=== PATIENT | male | born 1950 | race Caucasian/White ===

== ENCOUNTER 2017-10-05 14:52 | Inpatient (IN) | payer BC ==
[~2017-10-05] VITALS: Ht 180.3 cm; Wt 91.8 kg
[2017-10-05] MEDS ORDERED: ONDANSETRON PF 4 MG/2 ML VIAL. IV PRN (15:30)
[2017-10-05 15:40] VITALS: BP 110/73
[2017-10-05 16:07] LABS: BASO % 0 % (0-3); EOS # 0.2 x10^3/uL (0.0-0.7); EOS % 2 % (0-3); HEMATOCRIT 38.6 % (39.0-53.0); HEMOGLOBIN 13.5 g/dL (13.0-17.5); LYMPH # 2.4 x10^3/uL (1.0-4.8); LYMPH % 16 % (24-48); MEAN CORPUSCULAR HEMOGLOBIN 32 pg (25-35); MEAN CORPUSCULAR HGB CONC 35 g/dL (31-37); MEAN CORPUSCULAR VOLUME 92 fL (79-100); MONO # 1.3 x10^3/uL (0.0-1.1); MONO % 8 % (0-9); NEUT # 11.1 x10^3uL (1.8-7.7); NEUT % 74 % (31-73); PLATELET COUNT 328 x10^3/uL (140-400); RED BLOOD COUNT 4.22 x10^6/uL (4.30-5.70); RED CELL DISTRIBUTION WIDTH 13.4 % (11.5-14.5)
[2017-10-05 16:15] LABS: ALBUMIN 3.5 g/dL (3.4-5.0); ALBUMIN/GLOBULIN RATIO 0.9 (1.0-1.7); CALCIUM 9.5 mg/dL (8.5-10.1); CREATININE 1.1 mg/dL (0.7-1.3); GFR 67.2; TOTAL BILIRUBIN 0.6 mg/dL (0.2-1.0); TOTAL PROTEIN 7.4 g/dL (6.4-8.2)
[2017-10-05] MEDS ORDERED: INSU100I13 SQ (16:29)
[2017-10-05] MEDS ORDERED: LISI-338 PO (16:29)
[2017-10-05] MEDS ORDERED: ASPI81TA50 PO (16:29)
[2017-10-05] MEDS ORDERED: CARV6.252 PO (16:29)
[2017-10-05] MEDS ORDERED: ATORVASTATIN CA80 MG PO (16:29)
[2017-10-05] MEDS ORDERED: METF500T4 PO (16:29)
[2017-10-05] MEDS ORDERED: TICA90TA PO (16:29)
[2017-10-05] MEDS: IV NORMAL SALINE 1,000ML 1,000 ML IV SCH (18:21)
[2017-10-05 19:46] VITALS: BP 90/64
[2017-10-05 20:29] LABS: COLOR,URINE YELLOW
[2017-10-05 20:30] LABS: BACTERIA,URINE 0 /HPF (0-FEW); BILIRUBIN,URINE NEG (NEG); CLARITY,URINE CLEAR; GLUCOSE,URINE NEG (NEG); NITRITE,URINE NEG (NEG); RBC,URINE 0 /HPF (0-2); SQUAMOUS EPITHELIAL CELL,UR FEW /LPF; UROBILINOGEN,URINE 1 mg/dL (0.2 mg/dL)
[2017-10-05] MEDS: CARVEDILOL 6.25 MG TABLET PO SCH (21:00)
[2017-10-05] MEDS: ATORVASTATIN CALCIUM 20 MG TABLET PO SCH (21:20)
[2017-10-05] MEDS: TICAGRELOR 90 MG TABLET. PO SCH (21:20)
[2017-10-05] MEDS: CIPROFLOXACIN 400MG PREMIX 200 ML IV SCH (21:21)
[2017-10-05] MEDS: INSULIN GLARGINE 300 UNITS/3 ML INSULN.PEN. SQ SCH (21:23)
[2017-10-06 00:08] VITALS: BP 92/67
[2017-10-06] MEDS: IV NORMAL SALINE 1,000ML 1,000 ML IV SCH ×4 (01:56→23:30)
[2017-10-06 05:57] VITALS: BP 99/64
[2017-10-06 06:43] LABS: BASO % 0 % (0-3); EOS # 0.3 x10^3/uL (0.0-0.7); EOS % 3 % (0-3); HEMATOCRIT 35.3 % (39.0-53.0); HEMOGLOBIN 12.5 g/dL (13.0-17.5); LYMPH # 2.4 x10^3/uL (1.0-4.8); LYMPH % 19 % (24-48); MEAN CORPUSCULAR HEMOGLOBIN 33 pg (25-35); MEAN CORPUSCULAR HGB CONC 36 g/dL (31-37); MEAN CORPUSCULAR VOLUME 92 fL (79-100); MONO % 8 % (0-9); NEUT # 8.5 x10^3uL (1.8-7.7); NEUT % 70 % (31-73); PLATELET COUNT 283 x10^3/uL (140-400); RED BLOOD COUNT 3.85 x10^6/uL (4.30-5.70); RED CELL DISTRIBUTION WIDTH 13.4 % (11.5-14.5); WHITE BLOOD COUNT 12.3 x10^3/uL (4.0-11.0)
[2017-10-06 06:53] LABS: CALCIUM 9.2 mg/dL (8.5-10.1); POTASSIUM 3.6 mmol/L (3.5-5.1)
[2017-10-06] MEDS: CARVEDILOL 6.25 MG TABLET PO SCH ×2 (08:00→14:44)
[2017-10-06] MEDS: TICAGRELOR 90 MG TABLET. PO SCH ×2 (08:39→21:17)
[2017-10-06] MEDS: CIPROFLOXACIN 400MG PREMIX 200 ML IV SCH ×2 (08:39→21:16)
[2017-10-06] MEDS: metFORMIN 500 MG TABLET PO SCH ×2 (08:39→17:13)
[2017-10-06] MEDS: ASPIRIN ENTERIC COATED 81 MG TABLET.DR. PO SCH (08:39)
[2017-10-06] MEDS: LISINOPRIL 5 MG TABLET. PO SCH ×2 (08:42→14:44)
[2017-10-06 11:01] VITALS: BP 121/74
[2017-10-06 14:40] VITALS: BP 152/71
--- NOTE | 2017-10-06 18:42 | PN ---
DATE: 10/06/2017 SUBJECTIVE: A 67-year-old male in with diverticulitis, doing somewhat better today. The patient seems to be resting fairly comfortably. OBJECTIVE: VITAL SIGNS: The patient's blood pressure 120/70, respiratory rate 14, pulse 80, afebrile. ABDOMEN: Soft, diffuse tenderness in the left lower quadrant, but markedly improved from yesterday. No rebounding, no guarding. Positive bowel sounds. IMPRESSION: Diverticulitis. Continue with IV antibiotic therapy for now and make further evaluation. RAFAEL PARRA MD DR: SKIP/vidya JOB#: [id number] / [id number]
[2017-10-06 18:53] VITALS: BP 113/72
[2017-10-06] MEDS: ATORVASTATIN CALCIUM 20 MG TABLET PO SCH (21:17)
[2017-10-06] MEDS: LACTOBACILLUS RHAMNOSUS GG 1 CAPSULE. PO SCH (21:17)
[2017-10-06] MEDS: INSULIN GLARGINE 300 UNITS/3 ML INSULN.PEN. SQ SCH (21:21)
[2017-10-06 23:55] VITALS: BP 110/75
[2017-10-07 05:50] VITALS: BP 119/81
[2017-10-07] MEDS ORDERED: GLYCERIN/WITCH HAZEL TOPICAL PADS 40'S JAR. TP PRN (06:30)
[2017-10-07 06:36] LABS: BASO % 0 % (0-3); EOS # 0.3 x10^3/uL (0.0-0.7); EOS % 3 % (0-3); HEMATOCRIT 34.7 % (39.0-53.0); HEMOGLOBIN 12.4 g/dL (13.0-17.5); LYMPH % 22 % (24-48); MEAN CORPUSCULAR HEMOGLOBIN 33 pg (25-35); MEAN CORPUSCULAR HGB CONC 36 g/dL (31-37); MEAN CORPUSCULAR VOLUME 92 fL (79-100); MONO # 0.8 x10^3/uL (0.0-1.1); MONO % 8 % (0-9); NEUT # 6.1 x10^3uL (1.8-7.7); NEUT % 66 % (31-73); PLATELET COUNT 292 x10^3/uL (140-400); RED BLOOD COUNT 3.78 x10^6/uL (4.30-5.70); RED CELL DISTRIBUTION WIDTH 13.2 % (11.5-14.5); WHITE BLOOD COUNT 9.3 x10^3/uL (4.0-11.0)
[2017-10-07 06:38] LABS: CALCIUM 9.2 mg/dL (8.5-10.1); POTASSIUM 3.8 mmol/L (3.5-5.1)
[2017-10-07] MEDS: CARVEDILOL 6.25 MG TABLET PO SCH (08:37)
[2017-10-07] MEDS: TICAGRELOR 90 MG TABLET. PO SCH (08:37)
[2017-10-07] MEDS: metFORMIN 500 MG TABLET PO SCH (08:37)
[2017-10-07] MEDS: ASPIRIN ENTERIC COATED 81 MG TABLET.DR. PO SCH (08:37)
[2017-10-07 08:38] VITALS: BP 119/81
[2017-10-07] MEDS: LISINOPRIL 5 MG TABLET. PO SCH (08:38)
[2017-10-07] MEDS: LACTOBACILLUS RHAMNOSUS GG 1 CAPSULE. PO SCH (08:38)
[2017-10-07] MEDS ORDERED: METR500T8 PO ×2 (08:45→09:14)
--- NOTE | 2017-10-07 14:30 | DS ---
DATE OF DISCHARGE: 10/07/2017 HOSPITAL COURSE: A 67-year-old gentleman with diverticulitis, came in with left lower quadrant pain, also found out to have C. difficile and as a result of this, the patient was positive and kept on metronidazole, which took care of his diverticulitis as well as his other elements. He is still to get a colonoscopy in 6-10 weeks. Otherwise, the patient made good progress during the rest of his hospitalization also has a history of cholelithiasis. IMPRESSION AND PLAN: Therefore, diverticulitis of the left descending sigmoid area, as well as C. difficile. He will be discharged home. See MRAD. Decreased activity. Continue on metronidazole. Follow up with Gastroenterology. RAFAEL PARRA MD DR: SKIP/vidya JOB#: [id number] / [id number]
== END 2017-10-07 09:55 | disposition home or self-care (01) | DRG 372 ==
LOC: 1 SOUTH 15:10
PROVIDERS: ADMIT Family Medicine; ATTEND Family Medicine
DX: A04.72 Enterocolitis due to Clostridium difficile, not specified as recurrent (principal); K57.32 Diverticulitis of large intestine without perforation or abscess without bleeding; I10 Essential (primary) hypertension; E11.9 Type 2 diabetes mellitus without complications; F17.210 Nicotine dependence, cigarettes, uncomplicated; Z95.5 Presence of coronary angioplasty implant and graft; Z83.3 Family history of diabetes mellitus; Z79.82 Long term (current) use of aspirin; Z79.4 Long term (current) use of insulin; Z79.899 Other long term (current) drug therapy
CPT/HCPCS: 36415; 74177; 80048; 80053; 81001; 82150; 82947; 83690; 85007; 85025; 87324; J0744; J1815; J3490; Q9966; Q9967; J7030

== ENCOUNTER 2017-10-18 13:01 | Inpatient (IN) | payer BC ==
[~2017-10-18] VITALS: Ht 180.3 cm; Wt 92.6 kg
[~2017-10-18 13:01] MED LIST: ASPI81TA50 PO; ATORVASTATIN CA80 MG PO; CARV6.252 PO; INSU100I13 SQ; LISI-338 PO; METF500T5 PO; METR500T8 PO; TICA90TA PO
[2017-10-18 13:28] VITALS: BP 97/64
[2017-10-18 14:10] LABS: BASO % 0 % (0-3); EOS # 0.2 x10^3/uL (0.0-0.7); EOS % 1 % (0-3); HEMATOCRIT 37.8 % (39.0-53.0); HEMOGLOBIN 13.2 g/dL (13.0-17.5); LYMPH # 2.2 x10^3/uL (1.0-4.8); LYMPH % 12 % (24-48); MEAN CORPUSCULAR HEMOGLOBIN 33 pg (25-35); MEAN CORPUSCULAR HGB CONC 35 g/dL (31-37); MEAN CORPUSCULAR VOLUME 93 fL (79-100); MONO # 1.8 x10^3/uL (0.0-1.1); MONO % 10 % (0-9); NEUT # 14.4 x10^3uL (1.8-7.7); NEUT % 77 % (31-73); PLATELET COUNT 352 x10^3/uL (140-400); RED BLOOD COUNT 4.06 x10^6/uL (4.30-5.70); RED CELL DISTRIBUTION WIDTH 13.9 % (11.5-14.5); WHITE BLOOD COUNT 18.6 x10^3/uL (4.0-11.0)
[2017-10-18] MEDS ORDERED: NITROGLYCERIN SUBLINGUAL 0.4 MG BOTTLE OF 25. SL PRN (14:15)
[2017-10-18 14:22] LABS: ALBUMIN 3.6 g/dL (3.4-5.0); ALBUMIN/GLOBULIN RATIO 0.9 (1.0-1.7); CALCIUM 9.1 mg/dL (8.5-10.1); CREATININE 1.3 mg/dL (0.7-1.3); GFR 55.4; POTASSIUM 4.4 mmol/L (3.5-5.1); TOTAL BILIRUBIN 0.9 mg/dL (0.2-1.0); TOTAL PROTEIN 7.5 g/dL (6.4-8.2)
[2017-10-18] MEDS ORDERED: ASPIRIN 81 MG TAB.CHEW PO ONE (14:30)
[2017-10-18] MEDS ORDERED: IOHEXOL 240 MG/ML 50ML VIAL. ONE (14:51)
[2017-10-18] MEDS: metroNIDAZOLE 500 MG TABLET PO SCH ×2 (15:04→21:15)
[2017-10-18] MEDS: IV NORMAL SALINE 1,000ML 1,000 ML IV SCH ×2 (15:07→22:58)
[2017-10-18] MEDS ORDERED: IOHEXOL 300 MG/ML 75 ML VIAL. IV ONE (15:30)
[2017-10-18 16:22] VITALS: BP 111/66
[2017-10-18 17:06] LABS: % BANDS 1 % (0-9); % LYMPHS 12 % (24-48); % MONOS 5 % (0-10); % MYELOS 1 % (0-0); % SEGS 77 % (35-66)
[2017-10-18 17:52] LABS: PLT ESTIMATE ADEQUATE (ADEQUATE)
[2017-10-18 17:57] LABS: % ATYL 4 % (0-0)
[2017-10-18] MEDS: CARVEDILOL 6.25 MG TABLET PO SCH (18:03)
[2017-10-18 19:21] VITALS: BP 106/61
[2017-10-18] MEDS: ATORVASTATIN CALCIUM 20 MG TABLET PO SCH (21:06)
[2017-10-18] MEDS: TICAGRELOR 90 MG TABLET. PO SCH (21:06)
[2017-10-18] MEDS: INSULIN GLARGINE 300 UNITS/3 ML INSULN.PEN. SQ SCH (21:13)
[2017-10-18 22:27] VITALS: BP 105/68
[2017-10-19 06:09] VITALS: BP 118/63
[2017-10-19] MEDS: IV NORMAL SALINE 1,000ML 1,000 ML IV SCH ×3 (08:34→22:00)
[2017-10-19] MEDS: ASPIRIN ENTERIC COATED 81 MG TABLET.DR. PO SCH (08:35)
[2017-10-19] MEDS: CARVEDILOL 6.25 MG TABLET PO SCH ×2 (08:35→17:10)
[2017-10-19] MEDS: TICAGRELOR 90 MG TABLET. PO SCH ×2 (08:35→20:32)
[2017-10-19] MEDS: metroNIDAZOLE 500 MG TABLET PO SCH ×3 (08:36→20:32)
[2017-10-19] MEDS: LISINOPRIL 5 MG TABLET. PO SCH (08:36)
[2017-10-19 08:38] LABS: BACTERIA,URINE 0 /HPF (0-FEW); BILIRUBIN,URINE NEG (NEG); CLARITY,URINE CLEAR; COLOR,URINE YELLOW; GLUCOSE,URINE NEG (NEG); NITRITE,URINE NEG (NEG); RBC,URINE 0 /HPF (0-2); SQUAMOUS EPITHELIAL CELL,UR OCC /LPF; UROBILINOGEN,URINE 0.2 mg/dL (0.2 mg/dL); WBC,URINE 0 /HPF (0-4)
--- NOTE | 2017-10-19 08:45 | RAD ---
CT abdomen and pelvis with contrast 10/18/2017 Clinical indication: Diverticulitis. Abdominal pain. COMPARISON: CT abdomen pelvis 10/05/2017 TECHNIQUE: Multiple CT images of the abdomen and pelvis were obtained following intravenous administration of 75 mL Omnipaque 300. *One or more of the following individualized dose reduction techniques were utilized for this examination: 1. Automated exposure control. 2. Adjustment of the mA and/or kV according to patient size. 3. Use of iterative reconstruction technique. There are clustered subcentimeter noncalcified nodules in the left lung base series 2/image 1. Heart size is normal with partial visualization of coronary artery calcifications. Liver, spleen, adrenal glands are unremarkable. Cholelithiasis. No bile duct dilatation. There are punctate pancreatic parenchymal calcifications most prominent proximally, likely sequelae of chronic pancreatitis. No main branch pancreatic ductal dilatation There is an exophytic simple cyst from the posterior superior pole of the right kidney measuring up to 5.8 cm. There is a dominant simple cyst in the inferior pole the left kidney measuring 2.1 cm. There are additional bilateral renal hypodensities which are too small to definitively characterize. There is a stable exophytic hyperdensity with peripheral calcification at the inferior pole of the right kidney measuring 0.9 cm series 2/image 76. Abdominal aorta is normal in caliber with moderate mixed aortoiliac atheromatous disease. Major portal, splenic and visualized superior mesenteric veins are patent. No retroperitoneal or mesenteric lymphadenopathy. Small and large bowel loops are normal in caliber without obstruction. Appendix is normal in appearance. Moderate descending and sigmoid diverticulosis. Resolution in stranding adjacent to a diverticula at the proximal sigmoid colon, however interval development of pericolonic stranding and edema adjacent to a distal sigmoid colonic diverticula series 2/image 124. No pericolonic drainable abscess. No iliac or inguinal lymphadenopathy. No pelvic free fluid. There is a tiny left lateral urinary bladder diverticula. There are no destructive osseous lesions. IMPRESSION: 1. Resolution of proximal sigmoid diverticulitis, however development of acute distal sigmoid diverticulitis. No pericolonic drainable abscess. 2. Bilateral renal cysts, additional renal hypodensities that are too small to characterize, and a stable inferior pole right renal complex cyst. CT or MRI follow-up with without contrast (renal protocol) in 6 months is recommended. 3. Cholelithiasis. 4. Clustered noncalcified nodules in the left lung base, indeterminate. Nonemergent follow-up CT chest is recommended for further evaluation. Electronically signed by: Patrick Payne MD (10/19/2017 8:42 AM) [id number]
[2017-10-19 11:18] VITALS: BP 104/60
--- NOTE | 2017-10-19 13:04 | EKG ---
[address] [address] Test Date: 2017-10-18 Test Time: 15:40:13 Pat Name: VONNIE FORREST Department: Room: 120 A Gender: [employer]: : 1950 Requested By: RAFAEL PARRA Order Number: [id number] Reading MD: Juev Rae Measurements Intervals [place] Rate: P: [place]: QRS: QRSD: T: QT: QTc: Interpretive Statements SINUS RHYTHM PACS TRIGEMINAL PATTERN NONSPECIFIC ST-T WAVE CHANGES. Electronically Signed On 10-25-2017 13:51:21 CDT by Juve Rae
[2017-10-19 15:09] VITALS: BP 118/67
[2017-10-19 19:33] VITALS: BP 116/64
[2017-10-19] MEDS: LACTOBACILLUS RHAMNOSUS GG 1 CAPSULE. PO SCH (20:33)
[2017-10-19] MEDS: ATORVASTATIN CALCIUM 20 MG TABLET PO SCH (20:33)
[2017-10-19] MEDS: INSULIN GLARGINE 300 UNITS/3 ML INSULN.PEN. SQ SCH (20:33)
[2017-10-19 22:49] VITALS: BP 122/66
[2017-10-20] MEDS: IV NORMAL SALINE 1,000ML 1,000 ML IV SCH (03:34)
--- NOTE | 2017-10-20 05:12 | PN ---
DATE: 10/19/2017 SUBJECTIVE: The patient is a 67-year-old male who came in with abdominal pain. CT scan demonstrated a problem with a distal sigmoid diverticulitis. The patient says he is doing a little better. The patient should get a repeat CT scan in about 6 months. Other than that the patient is resting fairly comfortably. Continue to receive IV antibiotic therapy. White count was 18,000 on admission. In any case, he seems to be making fairly good progress, overall. We will continue on IV antibiotic therapy. OBJECTIVE: ABDOMEN: Soft, diffuse tenderness in the left lower quadrant. No rebounding, slight guarding. LUNGS: Diminished throughout, poor movement of air. VITAL SIGNS: Blood pressure 120/70, respiratory rate 20, pulse 66, afebrile. RAFAEL PARRA MD DR: SKIP/vidya JOB#: [id number] / [id number]
[2017-10-20 05:39] VITALS: BP 131/79
[2017-10-20 06:48] LABS: CALCIUM 8.4 mg/dL (8.5-10.1)
[2017-10-20 06:51] LABS: BASO % 1 % (0-3); EOS # 0.2 x10^3/uL (0.0-0.7); EOS % 3 % (0-3); HEMATOCRIT 34.3 % (39.0-53.0); HEMOGLOBIN 11.9 g/dL (13.0-17.5); LYMPH # 1.9 x10^3/uL (1.0-4.8); LYMPH % 22 % (24-48); MEAN CORPUSCULAR HEMOGLOBIN 33 pg (25-35); MEAN CORPUSCULAR HGB CONC 35 g/dL (31-37); MEAN CORPUSCULAR VOLUME 94 fL (79-100); MONO # 0.8 x10^3/uL (0.0-1.1); MONO % 10 % (0-9); NEUT # 5.4 x10^3uL (1.8-7.7); NEUT % 64 % (31-73); PLATELET COUNT 257 x10^3/uL (140-400); RED BLOOD COUNT 3.64 x10^6/uL (4.30-5.70); RED CELL DISTRIBUTION WIDTH 14.1 % (11.5-14.5); WHITE BLOOD COUNT 8.4 x10^3/uL (4.0-11.0)
[2017-10-20] MEDS ORDERED: metFORMIN 500 MG TABLET PO SCH (08:00)
[2017-10-20] MEDS: ASPIRIN ENTERIC COATED 81 MG TABLET.DR. PO SCH (08:34)
[2017-10-20] MEDS: metroNIDAZOLE 500 MG TABLET PO SCH (08:34)
[2017-10-20] MEDS: LACTOBACILLUS RHAMNOSUS GG 1 CAPSULE. PO SCH (08:34)
[2017-10-20 08:39] VITALS: BP 131/79
[2017-10-20] MEDS: LISINOPRIL 5 MG TABLET. PO SCH (08:39)
[2017-10-20] MEDS: CARVEDILOL 6.25 MG TABLET PO SCH (08:39)
[2017-10-20] MEDS: TICAGRELOR 90 MG TABLET. PO SCH (08:39)
[2017-10-20] MEDS ORDERED: METR500T8 PO (10:45)
[2017-10-20] MEDS ORDERED: LEVO500T59 PO (10:45)
--- NOTE | 2017-10-20 10:49 | DS ---
DATE OF DISCHARGE: 10/20/2017 HOSPITAL COURSE: The patient came in with abdominal pain. He was found to have an elevated white count of over 18,000 and slightly anemic. The patient was placed on IV Levaquin and metronidazole. Imaging showed an area of diverticulitis. There was acute distal sigmoid diverticulitis. The patient made excellent progress. It was also noted that the patient had cholelithiasis and Radiology recommended a repeat CT scans dedicated to the lungs themselves. There was also an exophytic simple cyst, posterior superior pole of the right kidney measuring 5.8 cm and need to be followed up as well. However, there was no retroperitoneal or mesenteric lymphadenopathy. IMPRESSION: Acute diverticulitis, hyponatremia, cholelithiasis, noncalcified nodules of the lung. DISCHARGE INSTRUCTIONS: The patient will be discharged home. Follow up as an outpatient. He will be on a low fiber diet for 2 weeks and then high fiber. Follow up in 7-10 days. He was given 10 days of antibiotics to follow up on this diverticulitis. RAFAEL PARRA MD DR: SKIP/vidya JOB#: [id number] / [id number]
== END 2017-10-20 11:40 | disposition home or self-care (01) | DRG 392 ==
LOC: 1 SOUTH 13:01
PROVIDERS: ADMIT Family Medicine; ATTEND Family Medicine
DX: K57.32 Diverticulitis of large intestine without perforation or abscess without bleeding (principal); E87.1 Hypo-osmolality and hyponatremia; N28.1 Cyst of kidney, acquired; D64.9 Anemia, unspecified; D72.829 Elevated white blood cell count, unspecified; E11.9 Type 2 diabetes mellitus without complications; K52.89 Other specified noninfective gastroenteritis and colitis; K80.20 Calculus of gallbladder without cholecystitis without obstruction; R91.8 Other nonspecific abnormal finding of lung field; R39.11 Hesitancy of micturition; E86.0 Dehydration; F17.210 Nicotine dependence, cigarettes, uncomplicated; I10 Essential (primary) hypertension; Z95.5 Presence of coronary angioplasty implant and graft; Z83.3 Family history of diabetes mellitus
CPT/HCPCS: 36415; 74177; 80048; 80053; 81001; 82150; 82947; 83690; 84484; 85007; 85025; 87045; 93005; J1815; J1956; Q9967; J7030

== ENCOUNTER 2017-10-25 15:40 | Observation (INO) | payer BC ==
[~2017-10-25] VITALS: Ht 180.3 cm; Wt 93.4 kg
[2017-10-25] MEDS ORDERED: ONDANSETRON PF 4 MG/2 ML VIAL. IV ONE (16:00)
--- NOTE | 2017-10-25 16:42 | RAD ---
CT of the head without contrast, 10/25/2017: HISTORY: Dizziness and vomiting The ventricles are within normal limits in size. There is no shift of the midline structures. There is no evidence of acute intracranial hemorrhage or mass effect. There is a single tiny deep white matter lucency in the right parietal region, probably due to chronic ischemic change. IMPRESSION: No acute intracranial abnormality is detected. Electronically signed by: Terry Venegas MD (10/25/2017 4:40 PM) [facility]
--- NOTE | 2017-10-25 17:08 | EKG ---
[address] [address] Test Date: 2017-10-25 Test Time: 16:03:40 Pat Name: VONNIE FORREST Department: Room: Gender: M Factorer: [facility] : 1950 Requested By: SAL ROD Order Number: [id number] Reading MD: Elian Hassan MD Measurements Intervals [place] Rate: 83 P: 3 NE: 164 QRS: 10 QRSD: 80 T: 20 QT: 378 QTc: 450 Interpretive Statements SINUS RHYTHM Electronically Signed On 10-26-2017 12:55:51 CDT by Elian Hassan MD
[2017-10-25 17:09] LABS: BASO % 0 % (0-3); EOS # 0.3 x10^3/uL (0.0-0.7); EOS % 3 % (0-3); HEMATOCRIT 38.3 % (39.0-53.0); HEMOGLOBIN 13.5 g/dL (13.0-17.5); LYMPH # 2.5 x10^3/uL (1.0-4.8); LYMPH % 20 % (24-48); MEAN CORPUSCULAR HEMOGLOBIN 33 pg (25-35); MEAN CORPUSCULAR HGB CONC 35 g/dL (31-37); MEAN CORPUSCULAR VOLUME 93 fL (79-100); MONO % 8 % (0-9); NEUT # 8.3 x10^3uL (1.8-7.7); NEUT % 68 % (31-73); PLATELET COUNT 359 x10^3/uL (140-400); RED BLOOD COUNT 4.13 x10^6/uL (4.30-5.70); RED CELL DISTRIBUTION WIDTH 14.4 % (11.5-14.5); WHITE BLOOD COUNT 12.2 x10^3/uL (4.0-11.0)
--- NOTE | 2017-10-25 17:42 | PHYS DOC ---
Past History Past Medical History: Diverticulitis, Diabetes, [place] Past Surgical History: Other Alcohol Use: None Drug Use: None Adult General Chief Complaint Chief Complaint: DIZZY/LIGHT HEADED HPI HPI 67-year-old male patient had nausea since last night and vomiting this morning and was dizzy and treated with vomiting, gait and decrease of physical activity with generalized weakness. Patient did not have chest pain, shortness of breath , abdominal pain, fever and chills. Patient states he was admitted recently with diagnosis of diverticulitis. Review of Systems Review of Systems Constitutional: Denies fever or chills [] Eyes: Denies change in visual acuity, redness, or eye pain [] HENT: Denies nasal congestion or sore throat [] Respiratory: Denies cough or shortness of breath [] Cardiovascular: No additional information not addressed in HPI [] GI: Denies abdominal pain,bloody stools or diarrhea, reports nausea and vomiting [] : Denies dysuria or hematuria [] Musculoskeletal: Denies back pain or joint pain [] Integument: Denies rash or skin lesions [] Neurologic: Denies headache, focal weakness or sensory changes , reports dizziness and generalized weakness[] Endocrine: Denies polyuria or polydipsia [] All other systems were reviewed and found to be within normal limits, except as documented in this note. Current Medications Current Medications Current Medications Medications (Trade) Dose Ordered Sig/Jelani Start Time Stop Time Status Last Admin Dose Admin Ondansetron HCl (Zofran) 4 mg 1X ONCE 10/25/17 16:00 10/25/17 16:02 DC 10/25/17 16:45 4 MG Allergies Allergies Allergies Coded Allergies Type Severity Reaction Last Updated Verified No Known Drug Allergies 10/05/17 No Physical Exam Physical Exam Constitutional: Well developed, well nourished, mild distress, non-toxic appearance, hard of hearing. [] HENT: Normocephalic, atraumatic, bilateral external ears normal, oropharynx moist, no oral exudates, nose normal. [] Eyes: PERRLA, EOMI, conjunctiva normal, no discharge. [] Neck: Normal range of motion, no tenderness, supple, no stridor. [] Cardiovascular:Heart rate regular rhythm, no murmur [] Lungs & Thorax: Bilateral breath sounds clear to auscultation [] Abdomen: Bowel sounds normal, soft, no tenderness, no masses, no pulsatile masses. [] Skin: Warm, dry, no erythema, no rash. [] Back: No tenderness, no CVA tenderness. [] Extremities: No tenderness, no cyanosis, no clubbing, ROM intact, no edema. [] Neurologic: Alert and oriented X 3, normal motor function, normal sensory function, no focal deficits noted. NIHSS of 0[] Psychologic: Affect normal, judgement normal, mood normal. [] Current Patient Data Vital Signs Vital Signs Date Time Temp Pulse Resp B/P (MAP) Pulse Ox O2 Delivery O2 Flow Rate FiO2 10/25/17 16:24 97.8 90 16 97 Room Air Lab Results Laboratory Tests Test 10/25/17 16:30 White Blood Count 12.2 x10^3/uL (4.0-11.0) H Red Blood Count 4.13 x10^6/uL (4.30-5.70) L Hemoglobin 13.5 g/dL (13.0-17.5) Hematocrit 38.3 % (39.0-53.0) L Mean Corpuscular Volume 93 fL (79-100) Mean Corpuscular Hemoglobin 33 pg (25-35) Mean Corpuscular Hemoglobin Concent 35 g/dL (31-37) Red Cell Distribution Width 14.4 % (11.5-14.5) Platelet Count 359 x10^3/uL (140-400) Neutrophils (%) (Auto) 68 % (31-73) Lymphocytes (%) (Auto) 20 % (24-48) L Monocytes (%) (Auto) 8 % (0-9) Eosinophils (%) (Auto) 3 % (0-3) Basophils (%) (Auto) 0 % (0-3) Neutrophils # (Auto) 8.3 x10^3uL (1.8-7.7) H Lymphocytes # (Auto) 2.5 x10^3/uL (1.0-4.8) Monocytes # (Auto) 1.0 x10^3/uL (0.0-1.1) Eosinophils # (Auto) 0.3 x10^3/uL (0.0-0.7) Basophils # (Auto) 0.0 x10^3/uL (0.0-0.2) EKG EKG EKG interpreted by me. EKG at 16, O2 showed normal sinus rhythm at rate of 83, no acute ST and T-wave abnormalities[] Radiology/Procedures Radiology/Procedures [] [address] [address] IMAGING REPORT Signed PATIENT: VONNIE FORREST ACCOUNT: [id number] : 1950 LOCATION: ER AGE: 67 SEX: M EXAM STATUS: REG ER ORD. PHYSICIAN: SAL ROD MD REASON: dizziness PROCEDURE: CT HEAD WO CONTRAST CT of the head without contrast, 10/25/2017: HISTORY: Dizziness and vomiting The ventricles are within normal limits in size. There is no shift of the midline structures. There is no evidence of acute intracranial hemorrhage or mass effect. There is a single tiny deep white matter lucency in the right parietal region, probably due to chronic ischemic change. IMPRESSION: No acute intracranial abnormality is detected. Electronically signed by: Terry Medina MD (10/25/2017 4:40 PM) [facility] DICTATED AND SIGNED BY: TERRY MEDINA MD DATE: 10/25/17 1633 CC: RAFAEL PARRA MD; SAL ROD MD ~ Course & Med Decision Making Course & Med Decision Making Pertinent Labs and Imaging studies reviewed. (See chart for details) Evaluation of patient in ER showed 67-year-old patient with complaining of nausea and vomiting and dizziness with problem with his balance since this morning. Patient had history of recent diverticulitis. Patient had any chest scale of 0. Patient was alert and oriented and his nausea improved with Zofran. White count was 12.2 without tachycardia or hypotension or fever. CMP is pending because of technical problem. Dr. Parra informed at 1743 and agreed with plan of admitting the patient. He will follow the results of CMP and will order CT abdomen and pelvis for evaluation of diverticulitis because of history of recent diverticulitis. [] Dragon Disclaimer Dragon Disclaimer This electronic medical record was generated, in whole or in part, using a voice recognition dictation system. Departure Departure: Impression: Primary Impression: Dizziness Additional Impression: Nausea and vomiting Disposition: ADMITTED INPATIENT (At 1744) Admitting Physician: Rafael Parra Condition: IMPROVED Referrals: RAFAEL PARRA MD (PCP) Problem Qualifiers SAL ROD MD October 25, 2017 17:42
[2017-10-25] MEDS ORDERED: ONDANSETRON PF 4 MG/2 ML VIAL. IV PRN (18:00)
[2017-10-25 18:20] LABS: ALBUMIN/GLOBULIN RATIO 1.3 (1.0-1.7); CALCIUM 9.6 mg/dL (8.5-10.1); CREATININE 1.1 mg/dL (0.7-1.3); GFR 67.2; TOTAL BILIRUBIN 0.6 mg/dL (0.2-1.0)
[2017-10-25 18:21] LABS: POTASSIUM 4.1 mmol/L (3.5-5.1)
[2017-10-25 18:22] LABS: MAGNESIUM 1.7 mg/dL (1.8-2.4)
[2017-10-25] MEDS: IV NORMAL SALINE 1,000ML 1,000 ML IV SCH (18:22)
[2017-10-25 18:31] LABS: TOTAL PROTEIN 7.2 g/dL (6.4-8.2)
[2017-10-25 19:30] VITALS: BP 110/79
[2017-10-25] MEDS: CARVEDILOL 6.25 MG TABLET PO SCH (21:00)
[2017-10-25] MEDS ORDERED: INSULIN GLARGINE 300 UNITS/3 ML INSULN.PEN. SQ SCH (21:00)
[2017-10-25] MEDS ORDERED: ATORVASTATIN CALCIUM 20 MG TABLET PO SCH (21:00)
[2017-10-25] MEDS: metroNIDAZOLE 500 MG TABLET PO SCH (21:00)
[2017-10-25 21:45] VITALS: BP 96/58
[2017-10-25] MEDS: LACTOBACILLUS RHAMNOSUS GG 1 CAPSULE. PO SCH (21:48)
[2017-10-25] MEDS: TICAGRELOR 90 MG TABLET. PO SCH (21:49)
[2017-10-25 22:22] VITALS: BP 120/75
[2017-10-26] MEDS: IV NORMAL SALINE 1,000ML 1,000 ML IV SCH (01:46)
[2017-10-26 06:00] VITALS: BP 112/77
[2017-10-26 07:48] LABS: BASO % 1 % (0-3); EOS # 0.3 x10^3/uL (0.0-0.7); EOS % 3 % (0-3); HEMATOCRIT 34.6 % (39.0-53.0); HEMOGLOBIN 12.1 g/dL (13.0-17.5); LYMPH # 2.6 x10^3/uL (1.0-4.8); LYMPH % 25 % (24-48); MEAN CORPUSCULAR HEMOGLOBIN 33 pg (25-35); MEAN CORPUSCULAR HGB CONC 35 g/dL (31-37); MEAN CORPUSCULAR VOLUME 93 fL (79-100); MONO # 0.9 x10^3/uL (0.0-1.1); MONO % 9 % (0-9); NEUT # 6.4 x10^3uL (1.8-7.7); NEUT % 63 % (31-73); PLATELET COUNT 293 x10^3/uL (140-400); RED BLOOD COUNT 3.71 x10^6/uL (4.30-5.70); RED CELL DISTRIBUTION WIDTH 14.1 % (11.5-14.5); WHITE BLOOD COUNT 10.2 x10^3/uL (4.0-11.0)
[2017-10-26] MEDS ORDERED: metFORMIN 500 MG TABLET PO SCH (08:00)
[2017-10-26 08:07] VITALS: BP 112/77
[2017-10-26] MEDS: LACTOBACILLUS RHAMNOSUS GG 1 CAPSULE. PO SCH (08:07)
[2017-10-26] MEDS: CARVEDILOL 6.25 MG TABLET PO SCH (08:07)
[2017-10-26] MEDS: TICAGRELOR 90 MG TABLET. PO SCH (08:07)
[2017-10-26] MEDS: metroNIDAZOLE 500 MG TABLET PO SCH (08:10)
--- NOTE | 2017-10-26 08:20 | RAD ---
PORTABLE CHEST 1V Clinical indications: DIZZINESS, VOMITING COMPARISON: October 23, 2004. Findings: No acute lung infiltrate or pleural effusion or pulmonary edema or lung mass or pneumothorax is seen. The heart size, pulmonary vasculature, mediastinum and both john are unremarkable. Impression: No acute radiographic abnormality is seen. Electronically signed by: Rex Hansen MD (10/26/2017 8:17 AM) [facility]
[2017-10-26] MEDS ORDERED: LISINOPRIL 5 MG TABLET. PO SCH (09:00)
[2017-10-26] MEDS ORDERED: ASPIRIN ENTERIC COATED 81 MG TABLET.DR. PO SCH (09:00)
[2017-10-26] MEDS ORDERED: levoFLOXacin 500 MG TABLET PO SCH (09:00)
[2017-10-26 09:43] LABS: CALCIUM 9.1 mg/dL (8.5-10.1); CREATININE 1.2 mg/dL (0.7-1.3); GFR 60.8
[2017-10-26 09:44] LABS: MAGNESIUM 1.8 mg/dL (1.8-2.4); POTASSIUM 4.5 mmol/L (3.5-5.1)
--- NOTE | 2017-10-26 23:50 | HP ---
ADMIT DATE: 10/25/2017 HISTORY OF PRESENT ILLNESS: The patient is a 67-year-old male came in with nausea, vomiting. This morning, the patient felt dizzy and lightheaded. The patient denied any chest pain, shortness of breath, abdominal pain, recently been treated for diverticulitis, but he did not have any abdominal pain related to that. The patient apparently had gone ahead and unfortunately taken his medication and then did not eat for an ultrasound test, at the same time became increasingly lightheaded and hypoglycemic. The patient came in through the Emergency Room and the patient was admitted for observation. PAST MEDICAL HISTORY: Diverticulitis, type 2 diabetes. SOCIAL HISTORY: The patient denies smoking, alcohol or drug use. ALLERGIES: The patient has no known allergies. MEDICATIONS: Metformin 500 mg daily, glyburide, Flagyl 500 t.i.d., Levaquin, Cipro 500 mg b.i.d. FAMILY HISTORY: Unremarkable. REVIEW OF SYSTEMS: Lightheadedness, dizziness, diaphoresis. Denies chest pain, shortness of breath. Denies abdominal pain. Neurologically baseline for this individual. PHYSICAL EXAMINATION: GENERAL: A white male, in moderate amount of distress. VITAL SIGNS: Blood pressure 128/80, pulse 98, afebrile, respiratory rate 16. HEENT: The patient's head was atraumatic, normocephalic. Eyes are PERRLA without jaundice. Mouth and throat were normal. NECK: Supple, no JVD or thyromegaly. LUNGS: Were diminished, but clear. CARDIOVASCULAR: Regular sinus rhythm. ABDOMEN: Soft, nontender, no rebound or guarding. Positive bowel sounds, no hepatosplenomegaly was noted. EXTREMITIES: Without clubbing, cyanosis, no edema. NEUROLOGIC: The patient was baseline, alert and oriented except he was feeling weak, dizzy. As a result of this, the patient was admitted for observation. LABORATORY DATA: The patient's blood sugar was 90 by the time he get back into the Emergency Room and D50 was given to the patient, otherwise stable on his labs. ASSESSMENT AND PLAN: The patient will be admitted for further evaluation and treatment thereof and make further assessment with monitoring his sugar, given advice about not taking medication without eating. RAFAEL PARRA MD DR: SKIP/vidya JOB#: [id number] / [id number]
== END 2017-10-26 08:56 | disposition home or self-care (01) ==
LOC: ER 15:40 → 1 SOUTH 17:45 → INTOOBSV 17:45 → ER 18:38
PROVIDERS: ADMIT Family Medicine; ATTEND Family Medicine
DX: R42 Dizziness and giddiness (principal); R11.2 Nausea with vomiting, unspecified; E11.9 Type 2 diabetes mellitus without complications
CPT/HCPCS: 36415; 70450; 71045; 80048; 80053; 82553; 82947; 83690; 83735; 83880; 84484; 85025; 85610; 93005; 96361; 96374; 99285; G0378; J2405; G0379; J1815; J7030

== ENCOUNTER → 2017-10-25 | Outpatient (CLI) | payer BC ==
[2017-10-20 08:39] VITALS: BP 131/79
[~2017-10-25] MED LIST changes: +LEVO500T59 PO
--- NOTE | 2017-10-25 12:06 | RAD ---
EXAM: Renal sonogram. HISTORY: Renal cyst. TECHNIQUE: Sonographic imaging of the kidneys and bladder was performed. COMPARISON: CT dated 10/18/2017. FINDINGS: The right kidney measures 10.1 cm [id number] and the left kidney measures 11.9 cm [id number]. There are simple appearing renal cysts, measuring 6.5 cm on the right and 3.1 cm and 2.4 cm on the left. No solid renal lesion is seen. The urinary bladder is unremarkable. The bladder volume is 492 cc. The ureteral jets are both seen. IMPRESSION: 1. Simple appearing bilateral renal cysts. Note is made that a complex cystic lesion reported on the prior CT and additional tiny hypodense lesions within both kidneys on the prior CT demonstrate no sonographic correlate. A renal protocol CT or MRI may be indicated to confirm benignity. 2. Otherwise, unremarkable renal sonogram. Electronically signed by: Patricia Cedillo MD (10/25/2017 12:02 PM) [facility]
== END | disposition home or self-care (01) ==
LOC: US 10:39
PROVIDERS: ATTEND Physician Assistant
DX: N28.1 Cyst of kidney, acquired (principal); E11.69 Type 2 diabetes mellitus with other specified complication; I10 Essential (primary) hypertension
CPT/HCPCS: 76770

== ENCOUNTER → 2017-10-27 | Outpatient (CLI) | payer BC ==
[2017-10-26 08:07] VITALS: BP 112/77
[~2017-10-27] MED LIST changes: +IOHEXOL 240 MG/ML 50ML VIAL. ONE
[2017-10-27] MEDS: IOHEXOL 300 MG/ML 75 ML VIAL. IV ONE (09:37)
--- NOTE | 2017-10-27 12:47 | RAD ---
EXAM: Abdomen and pelvis CT with intravenous contrast. HISTORY: Diverticulitis. TECHNIQUE: Computed tomographic images of the abdomen and pelvis were obtained following the administration of 75 cc Omnipaque 300 intravenous contrast. Multiplanar reformatting was performed. COMPARISON: 10/18/2017. FINDINGS: Evaluation of the lower thorax demonstrates linear atelectasis or scarring along the inferior left pleural fissure. There is no infiltrate or effusion. The heart is normal in size. There is hepatomegaly and hepatic steatosis. No suspicious hepatic lesion is seen. There is cholelithiasis. There are pancreatic calcifications due to the sequela of chronic pancreatitis. No suspicious pancreatic lesion is seen. The spleen is normal in size. The adrenal glands are unremarkable. There are bilateral renal cysts, the largest of which is seen on the right measuring 6.4 cm. There is a 1.3 cm exophytic lesion containing calcifications within the lower pole the right kidney. There is no hydronephrosis. The appendix is unremarkable. There is distal colonic diverticulosis. There has been interval decrease in fatty stranding and wall thickening involving the distal sigmoid colon, consistent with resolving diverticulitis. There is no abscess or free air. There is partially calcified atherosclerotic plaque within the abdominal aorta and iliac bifurcation. There are few prominent retroperitoneal lymph nodes, none of which are pathologically enlarged. The urinary bladder and prostate are unremarkable. There is no suspicious osseous lesion. IMPRESSION: 1. Resolving distal sigmoid diverticulitis superimposed on extensive distal colonic diverticulosis. No drainable fluid collection or free air is seen. 2. Cholelithiasis. 3. Bilateral renal cysts. There is a 1.3 cm suspected complex cystic lesion containing calcifications within the lower pole the right kidney. Renal protocol CT or MRI follow-up is recommended to confirm benignity and stability. 4. Hepatomegaly and hepatic steatosis. 5. Pancreatic calcifications due to the sequela of chronic pancreatitis. 6. Note is made that tiny pulmonary nodular opacities within the left lower lobe demonstrated on the prior study are excluded from the [id number] on this exam. Please refer to the prior report for follow-up recommendations. PQRS Compliance Statement: One or more of the following individualized dose reduction techniques were utilized for this examination: 1. Automated exposure control 2. Adjustment of the mA and/or kV according to patient size 3. Use of iterative reconstruction technique
== END | disposition home or self-care (01) ==
LOC: CT 08:13
PROVIDERS: ATTEND Internal Medicine Gastroenterology
DX: K57.32 Diverticulitis of large intestine without perforation or abscess without bleeding (principal); K76.0 Fatty (change of) liver, not elsewhere classified; K86.1 Other chronic pancreatitis; R16.0 Hepatomegaly, not elsewhere classified; K80.20 Calculus of gallbladder without cholecystitis without obstruction; N28.1 Cyst of kidney, acquired; I10 Essential (primary) hypertension; Z79.01 Long term (current) use of anticoagulants
CPT/HCPCS: 74177; Q9966; Q9967

== ENCOUNTER 2017-11-02 10:55 | Inpatient (IN) | payer BC ==
[~2017-11-02] VITALS: Ht 180.3 cm; Wt 90.9 kg
[~2017-11-02 10:55] MED LIST changes: -IOHEXOL 240 MG/ML 50ML VIAL. ONE
[2017-11-02] MEDS ORDERED: 0.9 % SODIUM CHLORIDE 10 ML DISP.SYRIN. IV PRN (11:45)
[2017-11-02] MEDS: IV NORMAL SALINE 1,000ML 1,000 ML IV SCH ×2 (11:53→16:00)
--- NOTE | 2017-11-02 11:57 | PHYS DOC ---
Past History Past Medical History: Diverticulitis, Diabetes, [place] Past Surgical History: Other Alcohol Use: None Drug Use: None Adult General Chief Complaint Chief Complaint: NAUSEA/VOMITING/DIARRHEA HPI HPI 67-year-old male patient with multiple medical problems and frequent emergency room visits and hospitalization was admitted one week ago with nausea and vomiting presented to emergency room complaining of 2 episodes of vomiting and 2 episodes of diarrhea since this morning without abdominal pain. Patient's stated he was dizzy and had unsteady gait that was the same presentation as his previous emergency room visit and hospitalizations one week ago. Patient denies chest pain, fever and chills, urinary symptoms, focal neuro deficit. Review of Systems Review of Systems Constitutional: Denies fever or chills [] Eyes: Denies change in visual acuity, redness, or eye pain [] HENT: Denies nasal congestion or sore throat [] Respiratory: Denies cough or shortness of breath [] Cardiovascular: No additional information not addressed in HPI [] GI: Denies abdominal pain, reports nausea, vomiting, diarrhea [] : Denies dysuria or hematuria [] Musculoskeletal: Denies back pain or joint pain [] Integument: Denies rash or skin lesions [] Neurologic: Denies headache, focal weakness or sensory changes, reports generalized weakness and problem with his balance [] Endocrine: Denies polyuria or polydipsia [] All other systems were reviewed and found to be within normal limits, except as documented in this note. Current Medications Current Medications Current Medications Medications (Trade) Dose Ordered Sig/Jelani Start Time Stop Time Status Last Admin Dose Admin Prochlorperazine Edisylate (Compazine) 10 mg 1X ONCE 11/02/17 12:00 11/02/17 12:01 Sodium Chloride (Normal Saline Flush) 10 ml QSHIFT PRN 11/02/17 11:45 Allergies Allergies Allergies Coded Allergies Type Severity Reaction Last Updated Verified No Known Drug Allergies 10/05/17 No Physical Exam Physical Exam Constitutional: Mild acute distress, non-toxic appearance. [] HENT: Normocephalic, atraumatic, bilateral external ears normal, oropharynx moist, no oral exudates, nose normal. [] Eyes: PERRLA, EOMI, conjunctiva normal, no discharge. [] Neck: Normal range of motion, no tenderness, supple, no stridor. [] Cardiovascular:Heart rate regular rhythm, no murmur [] Lungs & Thorax: Bilateral breath sounds clear to auscultation [] Abdomen: Bowel sounds normal, soft, no tenderness, no masses, no pulsatile masses. [] Skin: Warm, dry, no erythema, no rash. [] Back: No tenderness, no CVA tenderness. [] Extremities: No tenderness, no cyanosis, no clubbing, ROM intact, no edema. [] Neurologic: Alert and oriented X 2, normal motor function, normal sensory function, no focal deficits noted. [] Current Patient Data Vital Signs Vital Signs Date Time Temp Pulse Resp B/P (MAP) Pulse Ox O2 Delivery O2 Flow Rate FiO2 11/02/17 11:05 97.5 88 20 97 Room Air EKG EKG EKG interpreted by me. EKG at 1149 showed normal sinus rhythm at rate of 78, nonspecific EKG abnormalities.[] Radiology/Procedures Radiology/Procedures [][address] [address] IMAGING REPORT Signed PATIENT: VONNIE FORREST ACCOUNT: [id number] : 1950 LOCATION: ER AGE: 67 SEX: M EXAM STATUS: REG ER ORD. PHYSICIAN: SAL ORD MD REASON: nausea and vomiting PROCEDURE: ABDOMEN LTD Right upper quadrant abdominal ultrasound, 11/02/2017: HISTORY: Nausea and vomiting The gallbladder is within normal limits in size. It contains multiple echogenic foci with posterior acoustic shadowing compatible with gallstones. The gallbladder wall is not thickened. No pericholecystic edema is seen. The common hepatic duct is of normal caliber. There is no evidence of a hepatic mass. The pancreas was not adequately visualized. There is a 6.6 cm simple cyst arising from the upper pole of the right kidney. An additional small 9 mm cyst is seen in the lower pole posteriorly. There is a calcification along the inferior tip of the right kidney which corresponds to a partially calcified nodule, better delineated on the 10/27/2017 CT study. There is no evidence of hydronephrosis. IMPRESSION: 1. Cholelithiasis. 2. Right renal cysts. 3. Small partially calcified nodule arising from the lower pole of the right kidney. Electronically signed by: Terry Medina MD (11/02/2017 12:39 PM) [facility] DICTATED AND SIGNED BY: TERRY MEDINA MD DATE: 11/02/17 1232 CC: RAFAEL PARRA MD; SAL ROD MD ~ Course & Med Decision Making Course & Med Decision Making Pertinent Labs and Imaging studies reviewed. (See chart for details) Evaluation of patient in ER showed 67-year-old male patient with frequent emergency room visits with complaining of nausea and vomited and diarrhea. Patient did not have focal neuro deficit. Dr. Parra informed at 1143 and state patient was doing fine while he was at Hospital and recommended to admit patient for supportive evaluation and possible halfway placement. Dragon Disclaimer Dragon Disclaimer This electronic medical record was generated, in whole or in part, using a voice recognition dictation system. Departure Departure: Impression: Primary Impression: Nausea and vomiting Additional Impressions: Dizziness Cholelithiasis Cyst of right kidney Renal insufficiency Disposition: 09 ADMITTED INPATIENT (At 1145) Admitting Physician: Rafael Parra Condition: IMPROVED Referrals: RAFAEL PARRA MD (PCP) Problem Qualifiers SAL ROD MD November 02, 2017 11:57
[2017-11-02] MEDS ORDERED: PROCHLORPERAZINE 10 MG/2 ML VIAL. IV ONE (12:00)
--- NOTE | 2017-11-02 12:42 | RAD ---
Right upper quadrant abdominal ultrasound, 11/02/2017: HISTORY: Nausea and vomiting The gallbladder is within normal limits in size. It contains multiple echogenic foci with posterior acoustic shadowing compatible with gallstones. The gallbladder wall is not thickened. No pericholecystic edema is seen. The common hepatic duct is of normal caliber. There is no evidence of a hepatic mass. The pancreas was not adequately visualized. There is a 6.6 cm simple cyst arising from the upper pole of the right kidney. An additional small 9 mm cyst is seen in the lower pole posteriorly. There is a calcification along the inferior tip of the right kidney which corresponds to a partially calcified nodule, better delineated on the 10/27/2017 CT study. There is no evidence of hydronephrosis. IMPRESSION: 1. Cholelithiasis. 2. Right renal cysts. 3. Small partially calcified nodule arising from the lower pole of the right kidney. Electronically signed by: Terry Venegas MD (11/02/2017 12:39 PM) [facility]
[2017-11-02 12:45] LABS: BASO # 0.1 x10^3/uL (0.0-0.2); BASO % 1 % (0-3); EOS # 0.2 x10^3/uL (0.0-0.7); EOS % 2 % (0-3); HEMATOCRIT 39.7 % (39.0-53.0); HEMOGLOBIN 13.8 g/dL (13.0-17.5); LYMPH % 19 % (24-48); MEAN CORPUSCULAR HEMOGLOBIN 33 pg (25-35); MEAN CORPUSCULAR HGB CONC 35 g/dL (31-37); MEAN CORPUSCULAR VOLUME 94 fL (79-100); MONO # 0.8 x10^3/uL (0.0-1.1); MONO % 8 % (0-9); NEUT # 7.6 x10^3uL (1.8-7.7); NEUT % 71 % (31-73); PLATELET COUNT 308 x10^3/uL (140-400); RED BLOOD COUNT 4.24 x10^6/uL (4.30-5.70); RED CELL DISTRIBUTION WIDTH 14.4 % (11.5-14.5); WHITE BLOOD COUNT 10.6 x10^3/uL (4.0-11.0)
[2017-11-02 12:58] LABS: ALBUMIN 3.6 g/dL (3.4-5.0); CALCIUM 9.3 mg/dL (8.5-10.1); CREATININE 1.4 mg/dL (0.7-1.3); GFR 50.9; POTASSIUM 4.7 mmol/L (3.5-5.1); TOTAL BILIRUBIN 0.5 mg/dL (0.2-1.0); TOTAL PROTEIN 7.2 g/dL (6.4-8.2)
[2017-11-02] MEDS ORDERED: IV NORMAL SALINE 500ML 500 ML IV ONE (13:15)
[2017-11-02 14:22] VITALS: BP 117/76
--- NOTE | 2017-11-02 15:05 | EKG ---
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
[2017-11-02] MEDS ORDERED: LACT1CAP6 PO (15:38)
[2017-11-02] MEDS ORDERED: LEVO500T59 PO (15:41)
[2017-11-02] MEDS ORDERED: METR500T8 PO (15:41)
[2017-11-02 16:50] LABS: AMPHETAMINE/METHAMPHETAMINE NEG (NEG); BARBITURATES NEG (NEG); BENZODIAZEPINES NEG (NEG); CANNABINOIDS NEG (NEG); COCAINE NEG (NEG); METHADONE NEG (NEG); OPIATES NEG (NEG); PHENCYCLIDINE NEG (NEG)
[2017-11-02 16:58] LABS: BACTERIA,URINE 0 /HPF (0-FEW); BILIRUBIN,URINE NEG (NEG); CLARITY,URINE CLEAR; COLOR,URINE YELLOW; GLUCOSE,URINE NEG (NEG); NITRITE,URINE NEG (NEG); UROBILINOGEN,URINE 0.2 mg/dL (0.2 mg/dL)
[2017-11-02 16:59] LABS: SQUAMOUS EPITHELIAL CELL,UR FEW /LPF
[2017-11-02 18:03] VITALS: BP 108/62
[2017-11-02 19:39] VITALS: BP 111/64
--- NOTE | 2017-11-02 20:23 | RAD ---
EXAM: Abdomen and pelvis CT without intravenous contrast. HISTORY: Pain. TECHNIQUE: Computed tomographic images of the abdomen and pelvis were obtained without contrast. Multiplanar reformatting was performed. *One or more of the following individualized dose reduction techniques were utilized for this examination: 1. Automated exposure control. 2. Adjustment of the mA and/or kV according to patient size. 3. Use of iterative reconstruction technique. COMPARISON: 10/05/2017. FINDINGS: Evaluation of the lower thorax demonstrates linear atelectasis or scarring along the inferior left pleural fissure. There is right basilar atelectasis. There is no infiltrate or pleural effusion. No hepatic lesion is seen. There is cholelithiasis. There are pancreatic parenchymal calcifications due to chronic pancreatitis. There is no acute pancreatitis or pancreatic mass. The spleen is unremarkable. There is slight nodularity involving the left adrenal gland, without a discrete lesion on this noncontrast exam. There is a 6.5 cm exophytic cyst along the posterior right kidney. There is a 1.1 cm cyst with partial calcification within the lower pole the right kidney. There is a 3.4 cm cyst within the lower pole the left kidney. There is a 2.2 cm hypodense lesion within the lateral mid zone of the left kidney with suspected tiny wall or internal calcification, difficult to characterize in the absence of contrast. There is no appendicitis. There is no bowel obstruction. There is distal colonic diverticulosis. There is segmental wall thickening and fatty stranding involving the mid sigmoid colon, decreased compared to the prior study. No abscess is seen. No pathologically enlarged lymph node is seen. There is aortic and biiliac atherosclerosis. There is a tiny fat-containing umbilical hernia. There is a small diverticulum along the left lateral bladder. There is no suspicious osseous lesion. There are degenerative changes throughout the spine. IMPRESSION: 1. Slight interval decrease in fatty stranding surrounding the mid sigmoid colon, consistent with decreasing diverticulitis. The superimposed on distal colonic diverticulosis. No abscess is seen. 2. Multiple cystic lesions within both kidneys. These are better characterized on the contrast-enhanced exam dated 10/27/2017. Continued follow-up of the complex partially calcified lesion within the lower pole the right kidney is recommended. 3. Calcifications within the pancreas due to the sequela of chronic pancreatitis. 4. Cholelithiasis. Electronically signed by: Patricia Cedillo MD (11/02/2017 8:20 PM) [facility]
[2017-11-02] MEDS: LACTOBACILLUS RHAMNOSUS GG 1 CAPSULE. PO SCH (20:43)
[2017-11-02] MEDS: ATORVASTATIN CALCIUM 20 MG TABLET PO SCH (20:43)
[2017-11-02] MEDS: TICAGRELOR 90 MG TABLET. PO SCH (20:43)
[2017-11-02] MEDS: VANCOMYCIN 125 MG/2.5 ML ORAL SOLUTION. PO SCH (20:45)
[2017-11-02 23:08] VITALS: BP 111/63
[2017-11-03] MEDS: IV NORMAL SALINE 1,000ML 1,000 ML IV SCH ×3 (02:17→23:48)
[2017-11-03 04:58] VITALS: BP 104/55
[2017-11-03 06:50] LABS: CALCIUM 8.7 mg/dL (8.5-10.1); POTASSIUM 4.1 mmol/L (3.5-5.1)
[2017-11-03 06:56] LABS: BASO % 1 % (0-3); EOS # 0.3 x10^3/uL (0.0-0.7); EOS % 3 % (0-3); HEMATOCRIT 38.9 % (39.0-53.0); HEMOGLOBIN 13.6 g/dL (13.0-17.5); LYMPH # 2.7 x10^3/uL (1.0-4.8); LYMPH % 28 % (24-48); MEAN CORPUSCULAR HEMOGLOBIN 33 pg (25-35); MEAN CORPUSCULAR HGB CONC 35 g/dL (31-37); MEAN CORPUSCULAR VOLUME 94 fL (79-100); MONO # 0.9 x10^3/uL (0.0-1.1); MONO % 9 % (0-9); NEUT # 5.9 x10^3uL (1.8-7.7); NEUT % 60 % (31-73); PLATELET COUNT 276 x10^3/uL (140-400); RED BLOOD COUNT 4.14 x10^6/uL (4.30-5.70); RED CELL DISTRIBUTION WIDTH 14.4 % (11.5-14.5); WHITE BLOOD COUNT 9.8 x10^3/uL (4.0-11.0)
[2017-11-03] MEDS: TICAGRELOR 90 MG TABLET. PO SCH ×2 (08:48→20:11)
[2017-11-03] MEDS: ASPIRIN 81 MG TAB.CHEW PO SCH (08:48)
[2017-11-03] MEDS: LACTOBACILLUS RHAMNOSUS GG 1 CAPSULE. PO SCH ×2 (08:48→20:11)
[2017-11-03] MEDS: metFORMIN 500 MG TABLET PO SCH ×2 (08:48→17:16)
[2017-11-03] MEDS: CARVEDILOL 6.25 MG TABLET PO SCH ×2 (08:49→17:17)
[2017-11-03] MEDS: LISINOPRIL 5 MG TABLET. PO SCH (08:51)
[2017-11-03] MEDS: VANCOMYCIN 125 MG/2.5 ML ORAL SOLUTION. PO SCH ×2 (08:52→13:59)
--- NOTE | 2017-11-03 11:41 | HP ---
ADMIT DATE: 11/02/2017 HISTORY OF PRESENT ILLNESS: A 67-year-old male came in through the Emergency. The patient has been having episodes of nausea, vomiting, and diarrhea. The patient notes he was extremely dizzy and unsteady gait. Denies any chest pain, fever, or chills, although he does have some problems with continued treatment of his diverticulitis for which he is getting treatment for as an outpatient. In any case, the patient is very weak. He has nausea and vomiting. On my exam, he did have abdominal pain. The patient in turn was admitted for his lightheadedness and recurrent diverticulitis. PAST MEDICAL HISTORY: Diverticulitis, type 2 diabetes, previous heart attack. 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 He has had history of C. diff. Immunizations of pneumonia and flu up-to-date. FAMILY HISTORY: Positive for diabetes. ALLERGIES: No known drug allergies. HOME MEDICATIONS: Include Levaquin 500 mg daily, metronidazole 500 mg 3 times a day, Brilinta 90 mg b.i.d., Lipitor 80, carvedilol 6.25 b.i.d., lisinopril 5 mg daily, aspirin low dose, probiotics, metformin 500 b.i.d., insulin Lantus 20 units at bedtime. No known drug allergies. REVIEW OF SYSTEMS: The patient has lightheadedness, dizziness. Denies chest pain. Does have nausea, vomiting, and diarrhea. Denies blood in his stool. PHYSICAL EXAMINATION: GENERAL: A pleasant white male, in moderate amount of distress. VITAL SIGNS: Blood pressure 104/55, respiratory rate 16, pulse 80, afebrile. HEENT: The patient's head was atraumatic, normocephalic. Eyes: PERRLA without jaundice. Mouth and throat were normal. NECK: Supple. LUNGS: Diminished, but clear. CARDIOVASCULAR: Regular sinus rhythm. ABDOMEN: Soft, nontender except in the left lower quadrant area. There is some tenderness on deep palpation. EXTREMITIES: Without clubbing, cyanosis, nor edema. NEUROLOGIC: Alert, oriented. Has some speech problems related to his hearing loss. Otherwise, he is basically stable there and will be continued to be monitored accordingly on that situation. LABORATORY DATA: Reviewed. C. diff is pending. IMPRESSION: Acute colitis, chronic diverticulitis, lightheadedness with nausea, vomiting, diarrhea, history of Clostridium difficile, history of hard of hearing, type 2 diabetes. PLAN: Continue to monitor. Continue with IV antibiotic. Start him on vancomycin until we get the C. diff report back. RAFAEL PARRA MD DR: SKIP/vidya JOB#: [id number] / [id number]
[2017-11-03] MEDS: cefTRIAXone IV Push 1 GM VIAL. IVP SCH (11:57)
[2017-11-03] MEDS: CLINDAMYCIN 600MG PREMIX 50 ML IV SCH ×2 (11:59→17:21)
[2017-11-03 15:00] VITALS: BP_SYST 110; BP_SYST 123; BP_DIAS 60; BP_DIAS 78
[2017-11-03] MEDS: VANCOMYCIN 250 MG/5 ML ORAL SOLUTION. PO SCH ×2 (17:17→20:11)
[2017-11-03 19:07] VITALS: BP 118/72
[2017-11-03] MEDS: ATORVASTATIN CALCIUM 20 MG TABLET PO SCH (20:11)
[2017-11-03 22:44] VITALS: BP 130/76
[2017-11-04] MEDS: CLINDAMYCIN 600MG PREMIX 50 ML IV SCH ×3 (02:38→18:20)
[2017-11-04 05:53] VITALS: BP 117/62
[2017-11-04] MEDS: VANCOMYCIN 250 MG/5 ML ORAL SOLUTION. PO SCH (08:55)
[2017-11-04] MEDS: LISINOPRIL 5 MG TABLET. PO SCH (08:55)
[2017-11-04] MEDS: CARVEDILOL 6.25 MG TABLET PO SCH ×2 (08:55→17:40)
[2017-11-04] MEDS: TICAGRELOR 90 MG TABLET. PO SCH ×2 (08:55→20:39)
[2017-11-04] MEDS: metFORMIN 500 MG TABLET PO SCH ×2 (08:55→17:37)
[2017-11-04] MEDS: ASPIRIN 81 MG TAB.CHEW PO SCH (08:55)
[2017-11-04] MEDS: LACTOBACILLUS RHAMNOSUS GG 1 CAPSULE. PO SCH ×2 (08:55→20:39)
[2017-11-04] MEDS: cefTRIAXone IV Push 1 GM VIAL. IVP SCH (08:55)
[2017-11-04] MEDS: IV NORMAL SALINE 1,000ML 1,000 ML IV SCH (13:30)
[2017-11-04 19:25] VITALS: BP 122/67
[2017-11-04] MEDS: ATORVASTATIN CALCIUM 20 MG TABLET PO SCH (20:39)
--- NOTE | 2017-11-04 23:48 | PN ---
DATE: 11/04/2017 SUBJECTIVE: A 67-year-old male came in with recurrent diverticulitis as well as generalized weakness. The patient had acute colitis and the patient also had some diarrhea, but it was negative for C. diff. The patient continues on IV antibiotic therapy. We will put a PICC line in him since he continues to have some form of colitis, diverticulitis. PHYSICAL EXAMINATION: VITAL SIGNS: Otherwise the patient's vital signs include blood pressure 147/90, respiratory rate 18, pulse 75, afebrile. LUNGS: The patient's lungs are diminished, but clear. CARDIOVASCULAR: Stable. ABDOMEN: Soft, diffuse tenderness in the left lower quadrant area. EXTREMITIES: No rebounding, but slight guarding. IMPRESSION: Diverticulitis. We will go ahead and continue to monitor him on IV antibiotic therapy. Place PICC line in and hopefully home IV antibiotic therapy. RAFAEL PARRA MD DR: SKIP/vidya JOB#: [id number] / [id number]
[2017-11-05 00:09] VITALS: BP 95/59
[2017-11-05] MEDS: CLINDAMYCIN 600MG PREMIX 50 ML IV SCH ×2 (02:00→09:32)
[2017-11-05 05:52] LABS: BASO # 0.1 x10^3/uL (0.0-0.2); BASO % 1 % (0-3); EOS # 0.2 x10^3/uL (0.0-0.7); EOS % 3 % (0-3); HEMOGLOBIN 11.9 g/dL (13.0-17.5); LYMPH # 2.1 x10^3/uL (1.0-4.8); LYMPH % 30 % (24-48); MEAN CORPUSCULAR HEMOGLOBIN 33 pg (25-35); MEAN CORPUSCULAR HGB CONC 35 g/dL (31-37); MEAN CORPUSCULAR VOLUME 94 fL (79-100); MONO # 0.6 x10^3/uL (0.0-1.1); MONO % 9 % (0-9); NEUT # 4.1 x10^3uL (1.8-7.7); NEUT % 57 % (31-73); PLATELET COUNT 241 x10^3/uL (140-400); RED BLOOD COUNT 3.63 x10^6/uL (4.30-5.70); WHITE BLOOD COUNT 7.1 x10^3/uL (4.0-11.0)
[2017-11-05 05:59] LABS: CALCIUM 8.4 mg/dL (8.5-10.1); CREATININE 1.1 mg/dL (0.7-1.3); GFR 67.2
[2017-11-05 06:02] VITALS: BP 148/78
[2017-11-05] MEDS: ASPIRIN 81 MG TAB.CHEW PO SCH (09:32)
[2017-11-05] MEDS: LACTOBACILLUS RHAMNOSUS GG 1 CAPSULE. PO SCH (09:32)
[2017-11-05] MEDS: cefTRIAXone IV Push 1 GM VIAL. IVP SCH (09:32)
[2017-11-05 09:33] VITALS: BP 148/78
[2017-11-05] MEDS: metFORMIN 500 MG TABLET PO SCH (09:33)
[2017-11-05] MEDS: CARVEDILOL 6.25 MG TABLET PO SCH (09:33)
[2017-11-05] MEDS: TICAGRELOR 90 MG TABLET. PO SCH (09:33)
[2017-11-05] MEDS: LISINOPRIL 5 MG TABLET. PO SCH (09:33)
[2017-11-05] MEDS ORDERED: CLIN600P2 IV (09:55)
[2017-11-05] MEDS ORDERED: CEFT1VIA6 IVP (09:55)
== END 2017-11-05 12:00 | disposition home health service (06) | DRG 392 ==
LOC: ER 10:55 → 1 SOUTH 13:59
PROVIDERS: ADMIT Family Medicine; ATTEND Family Medicine
PROC: 05HB33Z Insertion of Infusion Device into Right Basilic Vein, Percutaneous Approach (ICD-10-PCS; principal; 2017-11-05)
PROC: B54MZZA Ultrasonography of Right Upper Extremity Veins, Guidance (ICD-10-PCS; 2017-11-05)
DX: K57.92 Diverticulitis of intestine, part unspecified, without perforation or abscess without bleeding (principal); N28.1 Cyst of kidney, acquired; K52.9 Noninfective gastroenteritis and colitis, unspecified; E11.9 Type 2 diabetes mellitus without complications; E78.00 Pure hypercholesterolemia, unspecified; H91.93 Unspecified hearing loss, bilateral; K80.20 Calculus of gallbladder without cholecystitis without obstruction; I25.10 Atherosclerotic heart disease of native coronary artery without angina pectoris; I25.2 Old myocardial infarction; Z83.3 Family history of diabetes mellitus; Z95.5 Presence of coronary angioplasty implant and graft
CPT/HCPCS: 36415; 36569; 74176; 76705; 80048; 80053; 80307; 81001; 82947; 83690; 84484; 85025; 87324; 93005; 96361; 96374; J0696; J0780; J3490; J7040; 99285-25; G0479; J7030

== ENCOUNTER 2017-11-23 20:43 | Inpatient (IN) | payer BC ==
[~2017-11-23] VITALS: Ht 180.3 cm; Wt 94.8 kg
[~2017-11-23 20:43] MED LIST changes: +CEFT1VIA6 IVP; +CLIN600P2 IV; +LACT1CAP6 PO
--- NOTE | 2017-11-23 20:45 | ED.ADGEN ---
Past History Past Medical History: Diverticulitis, Diabetes, [place] Past Surgical History: Other Alcohol Use: None Drug Use: None Adult General Chief Complaint Chief Complaint ".. He been walking around like he was drunk.. the last couple days...".." He been vomiting or spitting up constantly..." ( ) [facility] HPI Patient is a 67 year old male who presents with above hx and complaints acute mental status change 2 days ago. Dizziness staggered gait. Patient denies any intake of bad food, travel or ill contacts. Pt. has had previous GI problems primary diverticulitis and diverticular bleeding.. Pt. localizes pain to generalized abd. Pt. mild drift of Rt. arm at count of 5. GSC 13. Pt. actively vomiting or dry heaving. Complaints of general headache. Review of Systems Review of Systems Constitutional: Denies fever or chills [] Eyes: Denies change in visual acuity, redness, or eye pain [] HENT: Denies nasal congestion or sore throat [] Respiratory: Denies cough or shortness of breath [] Cardiovascular: No additional information not addressed in HPI [] GI: Complains of generalized abdominal pain, nausea, vomiting, . Denies bloody stools or diarrhea [] : Denies dysuria or hematuria [] Musculoskeletal: Denies back pain or joint pain [] Integument: Denies rash or skin lesions [] Neurologic: Plaints of headache, generalized weakness , dizziness, staggering gait Endocrine: Denies polyuria or polydipsia [] All other systems were reviewed and found to be within normal limits, except as documented in this note. Family History Family History Non-contributory Current Medications Current Medications Current Medications Medications (Trade) Dose Ordered Sig/Jelani Start Time Stop Time Status Last Admin Dose Admin Famotidine (Pepcid) 20 mg 1X ONCE 11/23/17 21:15 11/23/17 21:16 DC 11/23/17 21:29 20 MG Ondansetron HCl (Zofran Odt) 8 mg PRN QID PRN 11/24/17 00:45 Allergies Allergies Allergies Coded Allergies Type Severity Reaction Last Updated Verified No Known Drug Allergies 10/05/17 No Physical Exam Physical Exam Constitutional: In acute distress,ill in appearance. [] HENT: Normocephalic, atraumatic, bilateral external ears normal, oropharynx dry , no oral exudates, nose normal. Eyes: PERRLA, EOMI, conjunctiva normal, no discharge. [] Neck: Normal range of motion, no tenderness, supple, no stridor. [] Cardiovascular:Heart rate regular rhythm, no murmur []PMI to Lt. Lungs & Thorax: Bilateral breath sounds scattered wheezes auscultation [] Abdomen: Bowel sounds normal, soft, generalized tenderness, no masses, no pulsatile masses. [] Distended. Skin: Warm, dry, no erythema, no rash. Poor turgor Back: No tenderness, no CVA tenderness. [] Extremities: No tenderness, no cyanosis, no clubbing, ROM intact, no edema. [] Neurologic: Alert and oriented X 3, moves all extremities on request, decreased distal plantar sensory function, right arm drift Psychologic: Affect flat , very slow to respond, mood depressed Current Patient Data Vital Signs Vital Signs Date Time Temp Pulse Resp B/P (MAP) Pulse Ox O2 Delivery O2 Flow Rate FiO2 11/23/17 20:55 97.7 101 20 96 Room Air Lab Results Laboratory Tests Test 11/23/17 21:54 White Blood Count 13.1 x10^3/uL (4.0-11.0) H Red Blood Count 4.25 x10^6/uL (4.30-5.70) L Hemoglobin 14.0 g/dL (13.0-17.5) Hematocrit 40.2 % (39.0-53.0) Mean Corpuscular Volume 95 fL (79-100) Mean Corpuscular Hemoglobin 33 pg (25-35) Mean Corpuscular Hemoglobin Concent 35 g/dL (31-37) Red Cell Distribution Width 14.2 % (11.5-14.5) Platelet Count 280 x10^3/uL (140-400) Neutrophils (%) (Auto) 82 % (31-73) H Lymphocytes (%) (Auto) 12 % (24-48) L Monocytes (%) (Auto) 5 % (0-9) Eosinophils (%) (Auto) 1 % (0-3) Basophils (%) (Auto) 1 % (0-3) Neutrophils # (Auto) 10.7 x10^3uL (1.8-7.7) H Lymphocytes # (Auto) 1.5 x10^3/uL (1.0-4.8) Monocytes # (Auto) 0.7 x10^3/uL (0.0-1.1) Eosinophils # (Auto) 0.1 x10^3/uL (0.0-0.7) Basophils # (Auto) 0.1 x10^3/uL (0.0-0.2) Erythrocyte Sedimentation Rate 13 (0-15) Prothrombin Time 9.8 SEC (9.4-11.4) Prothrombin Time INR 1.0 (0.9-1.1) PTT 23 SEC (23-33) Sodium Level 137 mmol/L (136-145) Potassium Level 5.3 mmol/L (3.5-5.1) H Chloride Level 101 mmol/L (98-107) Carbon Dioxide Level 27 mmol/L (21-32) Anion Gap 9 (6-14) Blood Urea Nitrogen 29 mg/dL (8-26) H Creatinine 1.0 mg/dL (0.7-1.3) Estimated GFR (Cockcroft-Gault) 75.0 Glucose Level 227 mg/dL (70-99) H Calcium Level 9.5 mg/dL (8.5-10.1) Magnesium Level 2.0 mg/dL (1.8-2.4) Creatine Kinase 109 U/L (39-308) Creatine Kinase MB (Mass) 1.6 ng/mL (0.0-3.6) Creatine Kinase MB Relative Index 1.5 % (0-4) Troponin I Quantitative < 0.017 ng/mL (0-0.055) ME-Axt-F-Type Natriuretic Peptide 95 pg/mL (0-124) Amylase Level 141 U/L (25-115) H Lipase 510 U/L (73-393) H EKG EKG I interpretation EKG shows a sinus rhythm at 77 bpm. There is nonspecific contour at their maladies in anterior lateral leads. No findings acute STEMI of contralateral changes.[] Radiology/Procedures Radiology/Procedures My interpretation of chest x-ray shows no acute cardiopulmonary findings. No free air under the diaphragm.. Patient underwent film shows no findings of acute ileus does have a large stool burdening:. Consistent with constipation.[] My interpretation CT of head shows no shift, mass, edema, bleed, or fracture. Does have findings of white matter disease changes. Review formal report when available. Course & Med Decision Making Course & Med Decision Making Pertinent Labs and Imaging studies reviewed. (See chart for details). Stress presentation, testing and treatment plan with - will admit for further eval. and tx. [] Final Impression Final Impression 1. Dizzy[] 2. Mental Status Change 3. Nausea and Vomiting 4. Elevated Lipase/Amylase- Pancreatitis 5. Leukocytosis 6. DM 7. Hyperkalemia Dragon Disclaimer Dragon Disclaimer This electronic medical record was generated, in whole or in part, using a voice recognition dictation system. EASTON SANDERS MD Nov 23, 2017 20:45
[2017-11-23] MEDS ORDERED: ONDANSETRON ODT 4 MG TAB.RAPDIS PO ONE (21:15)
[2017-11-23] MEDS ORDERED: FAMOTIDINE 20 MG TABLET PO ONE (21:15)
--- NOTE | 2017-11-23 21:34 | EKG ---
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
--- NOTE | 2017-11-23 21:58 | RAD ---
EXAM: CT HEAD WITHOUT CONTRAST. HISTORY: Nausea, vomiting, altered mental status, dizziness. TECHNIQUE: Computed tomography of the head was performed without intravenous contrast. COMPARISON: None. FINDINGS: There is no intracranial hemorrhage. Rosario-white differentiation is preserved. The ventricles are normal in size and position. The visualized paranasal sinuses appear clear. There are changes of bilateral cataract surgery. The temporal bones are unremarkable. The calvarium reveals no suspicious lesions. IMPRESSION: 1. No acute intracranial findings. These findings were called to Dr. Fisher by Ha Akers on 11/23/2017 at 9:48 PM. *One or more of the following individualized dose reduction techniques were utilized for this examination: 1. Automated exposure control. 2. Adjustment of the mA and/or kV according to patient size. 3. Use of iterative reconstruction technique. Electronically signed by: Nathan Akers MD (11/23/2017 9:54 PM) [facility]
[2017-11-23 22:21] LABS: BASO # 0.1 x10^3/uL (0.0-0.2); BASO % 1 % (0-3); EOS # 0.1 x10^3/uL (0.0-0.7); EOS % 1 % (0-3); HEMATOCRIT 40.2 % (39.0-53.0); LYMPH # 1.5 x10^3/uL (1.0-4.8); LYMPH % 12 % (24-48); MEAN CORPUSCULAR HEMOGLOBIN 33 pg (25-35); MEAN CORPUSCULAR HGB CONC 35 g/dL (31-37); MEAN CORPUSCULAR VOLUME 95 fL (79-100); MONO # 0.7 x10^3/uL (0.0-1.1); MONO % 5 % (0-9); NEUT # 10.7 x10^3uL (1.8-7.7); NEUT % 82 % (31-73); PLATELET COUNT 280 x10^3/uL (140-400); RED BLOOD COUNT 4.25 x10^6/uL (4.30-5.70); RED CELL DISTRIBUTION WIDTH 14.2 % (11.5-14.5); WHITE BLOOD COUNT 13.1 x10^3/uL (4.0-11.0)
[2017-11-23 22:50] LABS: CALCIUM 9.5 mg/dL (8.5-10.1)
[2017-11-23 22:58] LABS: POTASSIUM 5.3 mmol/L (3.5-5.1)
[2017-11-23 23:14] LABS: AMYLASE 141 U/L (25-115); LIPASE 510 U/L (73-393)
[2017-11-24] MEDS ORDERED: ONDANSETRON ODT 4 MG TAB.RAPDIS PO PRN (00:45)
--- NOTE | 2017-11-24 01:47 | RAD ---
PROCEDURE: CHEST PA LATERAL CLINICAL INDICATION: shortness of breath, n/v, dizziness COMPARISON: None FINDINGS: No pneumothorax identified. Cardiac and mediastinal contours unremarkable. No pulmonary consolidation or acute airspace disease. No acute osseous abnormalities identified. IMPRESSION: No pulmonary consolidation or acute airspace disease. Electronically signed by: Bharathi Caldwell DO (11/24/2017 1:44 AM) [facility]
--- NOTE | 2017-11-24 02:31 | RAD ---
Indication: Nausea and vomiting TECHNIQUE: AP chest and 2 views of the abdomen and pelvis COMPARISON: None FINDINGS: No abnormally dilated bowel loops or air-fluid levels. Mild to moderate diffuse colonic stool burden. No evidence of free intraperitoneal air. Clear lung bases. Visualized bones are within normal limits. No abnormal calcific densities projecting over the kidneys. Impression: No radiographic evidence of small bowel obstruction. Mild to moderate diffuse colonic stool burden, patient may be constipated. Electronically signed by: Bharathi Caldwell DO (11/24/2017 2:27 AM) [facility]
[2017-11-24 02:47] VITALS: BP 93/58
--- NOTE | 2017-11-24 02:55 | NUR ---
NRSG -- ADMISSION -- PT on date of admission was having difficulty walking according to . Per pt, his knee was "twitchy". He was stumbling, dizzy and nauseated. PT had bouts of emesis throughout the day. PT with history of [place] 08/2017 with 2 stents, started on Brilinta post cath. PT has hearing loss in lt ear (uses hearing aid), deafness in rt ear. PT wears glasses (glasses with pt). PT with history of diverticulitis, no complaints currently. PT presented to the ER, emesis post Zofran administration. PT admitted, assessed, oriented to floor. PT arrived via EMS in stable condition, calm, cooperative with family present (spouse).
[2017-11-24 04:08] LABS: AMPHETAMINE/METHAMPHETAMINE NEG (NEG); BARBITURATES NEG (NEG); BENZODIAZEPINES NEG (NEG); CANNABINOIDS NEG (NEG); COCAINE NEG (NEG); METHADONE NEG (NEG); OPIATES NEG (NEG); PHENCYCLIDINE NEG (NEG)
[2017-11-24 04:19] LABS: BACTERIA,URINE 0 /HPF (0-FEW); BILIRUBIN,URINE NEG (NEG); CLARITY,URINE CLEAR; COLOR,URINE YELLOW; GLUCOSE,URINE NEG (NEG); NITRITE,URINE NEG (NEG); RBC,URINE 0 /HPF (0-2); SQUAMOUS EPITHELIAL CELL,UR OCC /LPF; UROBILINOGEN,URINE 0.2 mg/dL (0.2 mg/dL); WBC,URINE OCC /HPF (0-4)
[2017-11-24 05:27] VITALS: BP 93/64
[2017-11-24] MEDS ORDERED: IOHEXOL 240 MG/ML 50ML VIAL. ONE (06:57)
[2017-11-24] MEDS ORDERED: IOHEXOL 300 MG/ML 75 ML VIAL. IV ONE (07:30)
[2017-11-24] MEDS: ASPIRIN ENTERIC COATED 81 MG TABLET.DR. PO SCH (09:00)
[2017-11-24] MEDS ORDERED: NON FORMULARY ITEM (Lactobacillus Acidophilus (Probiotic) 1 EACH) PO SCH (09:00)
[2017-11-24] MEDS: LACTOBACILLUS RHAMNOSUS GG 1 CAPSULE. PO SCH ×2 (09:00→21:50)
[2017-11-24] MEDS ORDERED: LISINOPRIL 5 MG TABLET. PO SCH (09:00)
[2017-11-24] MEDS ORDERED: IV NORMAL SALINE 1,000ML 1,000 ML IV SCH (09:00)
[2017-11-24] MEDS: TICAGRELOR 90 MG TABLET. PO SCH ×2 (09:00→21:50)
[2017-11-24] MEDS ORDERED: CARVEDILOL 6.25 MG TABLET PO SCH (09:00)
[2017-11-24] MEDS ORDERED: metFORMIN 500 MG TABLET PO SCH (09:00)
[2017-11-24] MEDS ORDERED: cefTRIAXone IM 1 GM VIAL IM SCH (09:00)
[2017-11-24] MEDS: FAMOTIDINE 20 MG TABLET PO SCH (09:00)
--- NOTE | 2017-11-24 09:11 | RAD ---
PQRS Compliance Statement: One or more of the following individualized dose reduction techniques were utilized for this examination: 1. Automated exposure control 2. Adjustment of the mA and/or kV according to patient size 3. Use of iterative reconstruction technique CT abdomen/pelvis with contrast 11/24/2017 8:42 AM INDICATION: Nausea and vomiting COMPARISON: CT abdomen/pelvis November 02, 2017 TECHNIQUE: Multiple axial CT images of the abdomen and pelvis were obtained after the intravenous administration of 75 mL Omnipaque 300. Coronal and sagittal reformats are provided. FINDINGS: Lung bases are clear. Heart size is within normal limits. The liver, spleen and bilateral adrenal glands are normal in appearance. Gallstones containing nitrogen gas are visualized. Punctate calcifications throughout the pancreas suggest sequela of chronic pancreatitis. No peripancreatic fat stranding or mass is visualized. Mild to moderate atherosclerotic changes of the abdominal aorta are present. There is fusiform ectasia of the infrarenal abdominal aorta measuring 2.8 x 2.7 cm. There are no pathologically enlarged lymph nodes in the abdomen and pelvis. There is no abdominal free fluid. There is no free intraperitoneal air. The kidneys enhance symmetrically. Stable simple appearing renal cysts. No significant interval change involving a partially calcified lesion in the inferior pole the right kidney measuring 1.2 x 1.0 cm. No renal calculi visualized. No hydronephrosis. Oral contrast was administered. Opacified bowel loops demonstrate normal mucosal fold pattern. Small and large bowel are normal in caliber. Moderate sigmoid diverticulosis with resolved adjacent inflammatory changes. There is no evidence for bowel obstruction. There are no pericolonic inflammatory changes. A normal, nondilated appendix is visualized without adjacent inflammatory changes. The urinary bladder is within normal limits given degree of distention. No suspicious pelvic masses are identified. There are no suspicious osseous lesions identified. IMPRESSION: 1. Moderate diverticulosis with interval resolution of previously described diverticulitis. 2. Cholelithiasis. 3. Calcifications within the pancreas likely represent sequela of chronic pancreatitis. 4. Stable appearance of a complex partially calcified lesion in the inferior pole the right kidney. A one-year follow-up CT abdomen/pelvis may be of benefit. Electronically signed by: Anya Whalen MD (11/24/2017 9:08 AM) [id number]
[2017-11-24 12:30] VITALS: BP 95/63
[2017-11-24] MEDS: IV NORMAL SALINE 1,000ML 1,000 ML IV SCH (15:49)
[2017-11-24 16:11] VITALS: BP 100/67
--- NOTE | 2017-11-24 17:51 | HP ---
ADMIT DATE: 11/24/2017 HISTORY OF PRESENT ILLNESS: The patient admitted on 11/23/2017, for acute pancreatitis. The patient in the usual state of health, to begin to have severe abdominal pain, was noted also to have some change in mental status here in the last couple of days. He was dizzy staggering gait. Denies any intake of bad food, travel, and so forth; however, he has worked up for his GI complaint showed resolution of the diverticulitis that he had previously been treated for, but did show stranding, possibly of the pancreas and his elevated amylase and lipase consistent with pancreatitis. As a result of this, the patient was admitted to the hospital for pain relief. He had an elevated white count and the patient was admitted for further evaluation and treatment thereof. PAST MEDICAL HISTORY: Includes diverticulitis, type 2 diabetes, and previous heart attack. The patient is hard of hearing, moderate hearing loss. He has had coronary artery disease, cardiac stent placement x 2, anticoagulant therapy, hypercholesterolemia, diverticulitis, endocrine disorders, he has had a history of C. diff immunizations, pneumonia, and flu up-to-date. FAMILY HISTORY: Positive for diabetes. ALLERGIES: No known drug allergies. MEDICATIONS: Levaquin 500 mg daily, metronidazole 500 mg 3 times a day, Brilinta 90 mg b.i.d., Lipitor 80 mg, carvedilol 6.25 mg b.i.d., lisinopril 5 mg, aspirin low-dose, probiotics, metformin 500 mg b.i.d., insulin Lantus 20 units at bedtime. ALLERGIES: No known drug allergies. REVIEW OF SYSTEMS: The patient does have lightheadedness, some change in mental status, abdominal pain, denies shortness of breath, chest pain. Denies nausea with this. He denies any blood in his stool. SOCIAL HISTORY: The patient denies smoking, alcohol or drug use. PHYSICAL EXAMINATION: GENERAL: A white male, looking older than stated age, still somewhat disheveled. VITAL SIGNS: The patient's blood pressure 93/58, respiratory rate 20, pulse 100, afebrile. He is on IV fluids. Blood pressure has been coming up as a result of that and held her blood pressure medications. HEENT: Otherwise, the patient's head was atraumatic, normocephalic. Mouth and throat: Poor dentition. NECK: Supple, without JVD or thyromegaly. LUNGS: Diminished throughout, clear. CARDIOVASCULAR: Regular sinus rhythm, S1, S2, without murmur, rub, thrill, or extra heart sound. ABDOMEN: Soft, nontender, no rebound or guarding. Positive bowel sounds, no hepatosplenomegaly except in the epigastric area. There was pain on palpation, some slight guarding, but no rebounding. Positive bowel sounds and heme negative. : Normal male genitalia. NEUROLOGIC: Stable baseline for this individual. LABORATORY DATA: White count 13, hemoglobin and hematocrit 14 and 40, and the patient's lipase 510 elevated and amylase 141, glucose 227, potassium slightly high at 5.3, the patient's urine unremarkable. IMPRESSION: Acute pancreatitis, cholelithiasis, abdominal pain, hyperkalemia. The patient admitted for further evaluation and treatment thereof. PLAN: Continue to monitor the patient accordingly. Intravenous fluids, rest of bowel, pain medication as indicated. RAFAEL PARRA MD DR: SKIP/vidya JOB#: [id number] / [id number]
[2017-11-24 19:30] VITALS: BP 118/81
[2017-11-24] MEDS ORDERED: ATORVASTATIN CALCIUM 20 MG TABLET PO SCH (21:00)
[2017-11-24] MEDS ORDERED: INSULIN GLARGINE 300 UNITS/3 ML INSULN.PEN. SQ SCH (21:00)
[2017-11-24 23:34] VITALS: BP 119/79
[2017-11-25] MEDS: IV NORMAL SALINE 1,000ML 1,000 ML IV SCH (01:37)
[2017-11-25 06:44] LABS: BASO % 1 % (0-3); EOS # 0.3 x10^3/uL (0.0-0.7); EOS % 3 % (0-3); HEMATOCRIT 36.5 % (39.0-53.0); HEMOGLOBIN 12.8 g/dL (13.0-17.5); LYMPH # 1.9 x10^3/uL (1.0-4.8); LYMPH % 25 % (24-48); MEAN CORPUSCULAR HEMOGLOBIN 33 pg (25-35); MEAN CORPUSCULAR HGB CONC 35 g/dL (31-37); MEAN CORPUSCULAR VOLUME 94 fL (79-100); MONO # 0.6 x10^3/uL (0.0-1.1); MONO % 8 % (0-9); NEUT # 4.9 x10^3uL (1.8-7.7); NEUT % 63 % (31-73); PLATELET COUNT 237 x10^3/uL (140-400); RED BLOOD COUNT 3.87 x10^6/uL (4.30-5.70); RED CELL DISTRIBUTION WIDTH 14.2 % (11.5-14.5); WHITE BLOOD COUNT 7.7 x10^3/uL (4.0-11.0)
[2017-11-25 06:51] LABS: CALCIUM 8.7 mg/dL (8.5-10.1); POTASSIUM 4.1 mmol/L (3.5-5.1)
[2017-11-25 07:05] VITALS: BP 119/80
[2017-11-25] MEDS ORDERED: NORMAL SALINE IV ONE (07:30)
[2017-11-25] MEDS ORDERED: SINCALIDE IV ONE (07:30)
[2017-11-25] MEDS: FAMOTIDINE 20 MG TABLET PO SCH (08:35)
[2017-11-25] MEDS: TICAGRELOR 90 MG TABLET. PO SCH (08:35)
[2017-11-25] MEDS: ASPIRIN ENTERIC COATED 81 MG TABLET.DR. PO SCH (08:35)
[2017-11-25] MEDS: LACTOBACILLUS RHAMNOSUS GG 1 CAPSULE. PO SCH (08:35)
--- NOTE | 2017-11-25 09:04 | RAD ---
Radionuclide hepatobiliary scan with gallbladder ejection fraction, 11/25/2017: HISTORY: Abdominal pain, pancreatitis Following IV injection of 5.5 mCi of technetium 99m Choletec there was prompt uptake of the radionuclide from the blood stream by the liver. Activity is present in the bile ducts at 10 minutes and in the gallbladder and small bowel at 15 minutes. Additional imaging was then performed following IV injection of 1.9 mcg of cholecystokinin. There was very little gallbladder emptying with the gallbladder ejection fraction calculated at 1 percent. IMPRESSION: 1. No evidence of cystic duct or common bile duct obstruction. 2. Abnormal gallbladder response to cholecystokinin injection. Electronically signed by: Terry Venegas MD (11/25/2017 9:00 AM) [facility]
--- NOTE | 2017-11-25 11:34 | NUR ---
Pt being transferred to [facility] for sugery consult. Pt's PIPIDA scan resulted in less than 1 percent ejection fraction. Pt is transferred to Dr. Corral's service. Report was called to JENNA Larry. Pt is going to 424. Chart copied and sent with pt. Pt being transferred via EMS. Pt has two IV's: #18 L AC and #20 R Hand. Pt's present at time of transfer.
== END 2017-11-25 11:45 | disposition short-term general hospital (02) | DRG 444 ==
LOC: ER 20:43 → LND 11-24 02:37 → 1 SOUTH 11-24 06:46
PROVIDERS: ADMIT Family Medicine; ATTEND Family Medicine
DX: K80.20 Calculus of gallbladder without cholecystitis without obstruction (principal); K85.90 Acute pancreatitis without necrosis or infection, unspecified; E87.5 Hyperkalemia; E11.9 Type 2 diabetes mellitus without complications; E78.00 Pure hypercholesterolemia, unspecified; H91.90 Unspecified hearing loss, unspecified ear; I25.10 Atherosclerotic heart disease of native coronary artery without angina pectoris; I25.2 Old myocardial infarction; Z83.3 Family history of diabetes mellitus; Z87.01 Personal history of pneumonia (recurrent); Z95.5 Presence of coronary angioplasty implant and graft; Z79.899 Other long term (current) drug therapy
CPT/HCPCS: 36415; 70450; 71046; 74021; 74177; 78226; 80048; 80307; 81001; 82150; 82553; 82947; 83690; 83735; 83880; 84484; 85025; 85610; 85651; 85730; 87040; 93005; 96374; 96375; A9537; J1815; J2805; J3490; Q0162; Q9967; 99285-25; G0479; J7030

== ENCOUNTER 2017-12-22 15:26 | Inpatient (IN) | payer BC ==
[~2017-12-22] VITALS: Ht 180.3 cm; Wt 89.8 kg
[2017-12-22] MEDS ORDERED: IV NORMAL SALINE 1,000ML 1,000 ML IV ONE (16:00)
--- NOTE | 2017-12-22 16:03 | PHYS DOC ---
Past History Past Medical History: CAD, Diverticulitis, Diabetes, DC Past Surgical History: Angioplasty, Other Alcohol Use: None Drug Use: None Adult General Chief Complaint Chief Complaint: NAUSEA/VOMITING/DIARRHEA HPI HPI 67-year-old male patient with history of episodes of diverticulitis and pancreatitis and hospitalization recently and lap cholecystectomy on December 09 brought in because of episodes of nausea and vomiting and diarrhea since yesterday. Patient had 5 episodes of vomiting and more than 5 episodes of diarrhea with black stool that usually happens after eating. Patient denies abdominal pain but states he didn't have abdominal pain with his previous episodes of diverticulitis. Patient complaining of generalized weakness without fever and chills, chest pain, urinary symptom. Review of Systems Review of Systems Constitutional: Denies fever or chills [] Eyes: Denies change in visual acuity, redness, or eye pain [] HENT: Denies nasal congestion or sore throat [] Respiratory: Denies cough or shortness of breath [] Cardiovascular: No additional information not addressed in HPI [] GI: Denies abdominal pain, reports nausea, vomiting, bloody stools , diarrhea [] : Denies dysuria or hematuria [] Musculoskeletal: Denies back pain or joint pain [] Integument: Denies rash or skin lesions [] Neurologic: Denies headache, focal weakness or sensory changes [] Endocrine: Denies polyuria or polydipsia [] All other systems were reviewed and found to be within normal limits, except as documented in this note. Current Medications Current Medications Current Medications Medications (Trade) Dose Ordered Sig/Jelani Start Time Stop Time Status Last Admin Dose Admin Ondansetron HCl (Zofran) 4 mg 1X ONCE 12/22/17 16:00 12/22/17 16:01 UNV Pantoprazole Sodium (Protonix Vial) 40 mg 1X ONCE 12/22/17 16:00 12/22/17 16:01 UNV Sodium Chloride 1,000 ml @ 1,000 mls/hr 1X ONCE 12/22/17 16:00 12/22/17 16:59 Allergies Allergies Allergies Coded Allergies Type Severity Reaction Last Updated Verified No Known Drug Allergies 10/05/17 No Physical Exam Physical Exam Constitutional: Well developed, moderate distress, non-toxic appearance, ill looking. [] HENT: Normocephalic, atraumatic, bilateral external ears normal, oropharynx dry , no oral exudates, nose normal. [] Eyes: PERRLA, EOMI, conjunctiva normal, no discharge. [] Neck: Normal range of motion, no tenderness, supple, no stridor. [] Cardiovascular: Tachycardia, no murmur [] Lungs & Thorax: Bilateral breath sounds clear to auscultation [] Abdomen: Bowel sounds normal, soft, no tenderness, no masses, no pulsatile masses. Rectal exam in present of operator vacuum showed black colored stool. Skin: Warm, dry, no erythema, no rash. [] Back: No tenderness, no CVA tenderness. [] Extremities: No tenderness, no cyanosis, no clubbing, ROM intact, no edema. [] Neurologic: Alert and oriented X 3, normal motor function, normal sensory function, no focal deficits noted. [] Psychologic: Affect normal, judgement normal, mood normal. [] EKG EKG [] Radiology/Procedures Radiology/Procedures [][place] [address] IMAGING REPORT Signed PATIENT: VONNIE FORREST ACCOUNT: [id number] : 1950 LOCATION: ER AGE: 67 SEX: M EXAM STATUS: REG ER ORD. PHYSICIAN: SAL ROD MD REASON: nausea vomiting and diarrhea, history of diverticulitis PROCEDURE: CT ABDOMEN PELVIS WO CONTRAST EXAM: Abdomen and pelvis CT without intravenous contrast. HISTORY: Pain. TECHNIQUE: Computed tomographic images of the abdomen and pelvis were obtained without contrast. Multiplanar reformatting was performed. *One or more of the following individualized dose reduction techniques were utilized for this examination: 1. Automated exposure control. 2. Adjustment of the mA and/or kV according to patient size. 3. Use of iterative reconstruction technique. COMPARISON: 11/24/2017. FINDINGS: Evaluation of the lower thorax demonstrates linear left basilar atelectasis or scarring. There is no infiltrate or pleural effusion. The heart is normal in size. No hepatic lesion is seen. There is a 6.7 cm fluid collection containing foci of gas within the right gallbladder fossa. There is slight surrounding stranding and there are adjacent cholecystectomy clips, one of which appears displaced along the anterior right hepatic lobe. There are pancreatic parenchymal calcifications due to sequela of chronic pancreatitis. There is no evidence of acute pancreatitis. The spleen is normal in size. There is slight nodularity of the left adrenal gland. No suspicious adrenal lesion is seen. There is a large right renal cyst measuring 5.7 cm. There are few smaller bilateral renal cysts. There is suspected slight cyst wall calcification or milk of calcium within a 1.9 cm cyst within the mid zone of the left kidney. No solid lesion is seen. There is no obstructive uropathy. There is also a partially calcified exophytic lesion along the lower pole the right kidney measuring 10 mm. There is no appendicitis or bowel obstruction. There is colonic diverticulosis. There is sigmoid wall thickening and slight fatty stranding surrounding the proximal to mid sigmoid colon. This may be due to superimposed acute diverticulitis. The urinary bladder is unremarkable. There is stranding within the ventral abdominal wall due to recent laparoscopic surgery. There is aortic atherosclerosis. There is aortic ectasia, measuring 2.8 cm in maximum dimension. There are degenerative changes throughout the spine. There is no suspicious osseous lesion. IMPRESSION: 1. 6.7 cm fluid collection containing foci of gas within the gallbladder fossa, adjacent to cholecystectomy clips. The differential includes a biloma and seroma. 2. Chronic pancreatitis. 3. Colonic diverticulosis with superimposed segmental sigmoid wall thickening and surrounding fatty likely due to diverticulitis. 4. Bilateral renal cysts, one of which on the left measures 1.9 cm and contained slight wall calcification or milk of calcium. There is also a 10 mm partially calcified exophytic complex cyst along the lower pole the right kidney. Continued follow-up is recommended to confirm benignity. 5. Ectatic atherosclerotic abdominal aorta measuring 2.8 cm in caliber. Electronically signed by: Patricia Cedillo MD (12/22/2017 4:35 PM) [facility] Course & Med Decision Making Course & Med Decision Making Pertinent Labs and Imaging studies reviewed. (See chart for details) Evaluation of patient in ER showed 67-year-old male patient with history of frequent episodes of diverticulitis and cholecystectomy at [facility] on December 09 complaining of nausea and vomiting and diarrhea since yesterday with positive guaiac stools for blood. Patient had hemoglobin of 11.6 and bicarbonate of 18,000 with a done insufficiency and dehydration. CT of abdomen and pelvis showed 6.7 cm fluid collection with gas inside it in site of cholecystectomy with concern for biloma or seroma. Dr. Parra informed at 1650 and recommended to transfer patient to [facility]. Patient's surgeon Dr. Manzo informed at 1719 and agreed with plan of transfer and recommended to admit patient to hospitalist. [facility] transfer team was informed and Dr. Mcdowell the hospital is supposed to call back for accepting the patient. She care transferred to Dr. Fisher at 1800. Dr. Mcdowell- [facility] and Transfer Team Dulce Maria- Pt. not accepted for transfer to [facility]. Discussed issues of pt. with Dr. Parra- at 1900 hrs. Advised he would accept pt. here at [place] until further disposition could be made. Impression: 1. Abd. Pain 2. S/P Cholecystectomy 12/09/2017-[facility] 3. Chronic Pancreatitis 4. Hx. of Colonic Diverticulosis 5. Hx. Gastroenteritis- Diarrhea 6. Leukocytosis 7. Hx. of Prior episodes of recurrent C-dif. infections 8. Out- Let Rectal Bleeding. 9. Anemia 10.DM Pt. currently comfortable. Hyperactive Bowel Sounds. Suture lines stable. Still mild tachycardia-100's. Reviewed chart and labs. Reviewed current plan with pt. and . They are agreement with medical plan for Dr. Parra- to admit. [] Dragon Disclaimer Dragon Disclaimer This electronic medical record was generated, in whole or in part, using a voice recognition dictation system. Departure Departure: Impression: Primary Impression: Post-operative complication Additional Impressions: Gastroenteritis GI bleeding Leukocytosis Anemia Diverticulitis large intestine Chronic pancreatitis Dehydration Renal insufficiency Disposition: 09 ADMITTED INPATIENT (At 1900) Admitting Physician: Rafael Parra Condition: GUARDED Referrals: RAFAEL PARRA MD (PCP) Critical Care Time Critical care time was [90] minutes exclusive of procedures. Problem Qualifiers SAL ROD MD Dec 22, 2017 16:03 EASTON FISHER MD Dec 22, 2017 19:19
[2017-12-22 16:08] LABS: BASO # 0.1 x10^3/uL (0.0-0.2); BASO % 0 % (0-3); EOS # 0.3 x10^3/uL (0.0-0.7); EOS % 1 % (0-3); HEMOGLOBIN 11.6 g/dL (13.0-17.5); LYMPH # 2.2 x10^3/uL (1.0-4.8); LYMPH % 12 % (24-48); MEAN CORPUSCULAR HEMOGLOBIN 33 pg (25-35); MEAN CORPUSCULAR HGB CONC 35 g/dL (31-37); MEAN CORPUSCULAR VOLUME 95 fL (79-100); MONO # 1.4 x10^3/uL (0.0-1.1); MONO % 7 % (0-9); NEUT # 14.7 x10^3uL (1.8-7.7); NEUT % 79 % (31-73); PLATELET COUNT 441 x10^3/uL (140-400); RED BLOOD COUNT 3.49 x10^6/uL (4.30-5.70); RED CELL DISTRIBUTION WIDTH 13.4 % (11.5-14.5); WHITE BLOOD COUNT 18.7 x10^3/uL (4.0-11.0)
[2017-12-22 16:22] LABS: ALBUMIN 3.7 g/dL (3.4-5.0); ALBUMIN/GLOBULIN RATIO 1.1 (1.0-1.7); CALCIUM 9.5 mg/dL (8.5-10.1); CREATININE 1.3 mg/dL (0.7-1.3); GFR 55.4; POTASSIUM 4.6 mmol/L (3.5-5.1); TOTAL BILIRUBIN 0.5 mg/dL (0.2-1.0); TOTAL PROTEIN 7.1 g/dL (6.4-8.2)
[2017-12-22] MEDS ORDERED: ONDANSETRON PF 4 MG/2 ML VIAL. IV ONE (16:25)
[2017-12-22] MEDS ORDERED: PANTOPRAZOLE IV 40 MG VIAL. IVP ONE (16:25)
[2017-12-22] MEDS ORDERED: IOHEXOL 300 MG/ML 75 ML VIAL. IV ONE (16:30)
[2017-12-22] MEDS ORDERED: IOHEXOL 240 MG/ML 50ML VIAL. PO ONE (16:30)
[2017-12-22 16:32] LABS: % BANDS 9 % (0-9); % BASOS 1 % (0-3); % LYMPHS 16 % (24-48); % MONOS 5 % (0-10); % SEGS 69 % (35-66); PLT ESTIMATE INCREASED (ADEQUATE)
[2017-12-22 16:33] LABS: TOXIC GRANULATION SLIGHT
--- NOTE | 2017-12-22 16:39 | RAD ---
EXAM: Abdomen and pelvis CT without intravenous contrast. HISTORY: Pain. TECHNIQUE: Computed tomographic images of the abdomen and pelvis were obtained without contrast. Multiplanar reformatting was performed. *One or more of the following individualized dose reduction techniques were utilized for this examination: 1. Automated exposure control. 2. Adjustment of the mA and/or kV according to patient size. 3. Use of iterative reconstruction technique. COMPARISON: 11/24/2017. FINDINGS: Evaluation of the lower thorax demonstrates linear left basilar atelectasis or scarring. There is no infiltrate or pleural effusion. The heart is normal in size. No hepatic lesion is seen. There is a 6.7 cm fluid collection containing foci of gas within the right gallbladder fossa. There is slight surrounding stranding and there are adjacent cholecystectomy clips, one of which appears displaced along the anterior right hepatic lobe. There are pancreatic parenchymal calcifications due to sequela of chronic pancreatitis. There is no evidence of acute pancreatitis. The spleen is normal in size. There is slight nodularity of the left adrenal gland. No suspicious adrenal lesion is seen. There is a large right renal cyst measuring 5.7 cm. There are few smaller bilateral renal cysts. There is suspected slight cyst wall calcification or milk of calcium within a 1.9 cm cyst within the mid zone of the left kidney. No solid lesion is seen. There is no obstructive uropathy. There is also a partially calcified exophytic lesion along the lower pole the right kidney measuring 10 mm. There is no appendicitis or bowel obstruction. There is colonic diverticulosis. There is sigmoid wall thickening and slight fatty stranding surrounding the proximal to mid sigmoid colon. This may be due to superimposed acute diverticulitis. The urinary bladder is unremarkable. There is stranding within the ventral abdominal wall due to recent laparoscopic surgery. There is aortic atherosclerosis. There is aortic ectasia, measuring 2.8 cm in maximum dimension. There are degenerative changes throughout the spine. There is no suspicious osseous lesion. IMPRESSION: 1. 6.7 cm fluid collection containing foci of gas within the gallbladder fossa, adjacent to cholecystectomy clips. The differential includes a biloma and seroma. 2. Chronic pancreatitis. 3. Colonic diverticulosis with superimposed segmental sigmoid wall thickening and surrounding fatty likely due to diverticulitis. 4. Bilateral renal cysts, one of which on the left measures 1.9 cm and contained slight wall calcification or milk of calcium. There is also a 10 mm partially calcified exophytic complex cyst along the lower pole the right kidney. Continued follow-up is recommended to confirm benignity. 5. Ectatic atherosclerotic abdominal aorta measuring 2.8 cm in caliber. Electronically signed by: Patricia Cedillo MD (12/22/2017 4:35 PM) [facility]
[2017-12-22 16:52] LABS: FECAL OB PT POSITIVE (NEG)
[2017-12-22] MEDS ORDERED: CIPROFLOXACIN 400MG PREMIX 200 ML IV ONE (17:00)
[2017-12-22] MEDS ORDERED: CIPROFLOXACIN 400MG PREMIX 200 ML IV SCH (19:30)
[2017-12-22] MEDS ORDERED: IV RINGERS SOLUTION,LACTATED 1,000 ML IV ONE (19:30)
--- NOTE | 2017-12-22 19:45 | NUR ---
Skin under bandage on abdomen examined. Healing surgical incision s/p lap irma on 12/09. Area is not reddened. Bandage reapplied.
--- NOTE | 2017-12-22 19:45 | NUR ---
The patient, VONNIE FORREST, 67 y/o, M admitted by RAFAEL PARRA MD, was given written information regarding hospital policies, unit procedures and contact persons. Valuables were checked and logged. Call light at bedside. Will continue to monitor.
--- NOTE | 2017-12-22 19:49 | NUR ---
First doses of cipro and flagyl were completed in the ER.
[2017-12-22 19:54] VITALS: BP 110/74
[2017-12-22 21:23] LABS: CLARITY,URINE CLEAR; COLOR,URINE YELLOW; GLUCOSE,URINE NEG (NEG)
[2017-12-22 21:24] LABS: AMORPHOUS SEDIMENT,UR PRESENT /HPF; BACTERIA,URINE FEW /HPF (0-FEW); BILIRUBIN,URINE NEG (NEG); NITRITE,URINE NEG (NEG); RBC,URINE OCC /HPF (0-2); SQUAMOUS EPITHELIAL CELL,UR OCC /LPF; UROBILINOGEN,URINE 0.2 mg/dL (0.2 mg/dL); WBC,URINE OCC /HPF (0-4)
[2017-12-22 21:25] LABS: GRANULAR CASTS,URINE OCC /HPF; HYALINE CASTS, URINE FEW /HPF
[2017-12-22] MEDS: IV RINGERS SOLUTION,LACTATED 1,000 ML IV SCH (21:37)
[2017-12-22 22:57] VITALS: BP 110/73
[2017-12-23] MEDS: IV RINGERS SOLUTION,LACTATED 1,000 ML IV SCH ×2 (04:18→08:00)
[2017-12-23 05:40] VITALS: BP 119/63
[2017-12-23] MEDS ORDERED: ASPIRIN ENTERIC COATED 81 MG TABLET.DR. PO SCH ×4 (08:00)
[2017-12-23] MEDS ORDERED: NON FORMULARY ITEM (Metformin Hcl 500 MG) PO SCH ×3 (08:00)
[2017-12-23] MEDS ORDERED: metFORMIN 500 MG TABLET PO SCH (08:00)
[2017-12-23] MEDS ORDERED: CARVEDILOL 6.25 MG TABLET PO SCH (08:00)
[2017-12-23 08:19] LABS: BASO % 0 % (0-3); EOS # 0.2 x10^3/uL (0.0-0.7); EOS % 2 % (0-3); HEMATOCRIT 25.3 % (39.0-53.0); LYMPH # 2.4 x10^3/uL (1.0-4.8); LYMPH % 23 % (24-48); MEAN CORPUSCULAR HEMOGLOBIN 34 pg (25-35); MEAN CORPUSCULAR HGB CONC 36 g/dL (31-37); MEAN CORPUSCULAR VOLUME 95 fL (79-100); MONO # 0.8 x10^3/uL (0.0-1.1); MONO % 8 % (0-9); NEUT # 7.2 x10^3uL (1.8-7.7); NEUT % 68 % (31-73); PLATELET COUNT 280 x10^3/uL (140-400); RED BLOOD COUNT 2.67 x10^6/uL (4.30-5.70); RED CELL DISTRIBUTION WIDTH 14.1 % (11.5-14.5); WHITE BLOOD COUNT 10.6 x10^3/uL (4.0-11.0)
[2017-12-23 08:28] LABS: CALCIUM 8.8 mg/dL (8.5-10.1); CREATININE 1.2 mg/dL (0.7-1.3); GFR 60.8; POTASSIUM 3.9 mmol/L (3.5-5.1)
[2017-12-23] MEDS ORDERED: NON FORMULARY ITEM (Carvedilol 1 TAB) PO SCH ×3 (09:00)
[2017-12-23] MEDS ORDERED: TICAGRELOR 90 MG TABLET. PO SCH (09:00)
[2017-12-23] MEDS ORDERED: LACTOBACILLUS RHAMNOSUS GG 1 CAPSULE. PO SCH ×4 (09:00)
[2017-12-23] MEDS ORDERED: LISINOPRIL 5 MG TABLET. PO SCH (09:00)
--- NOTE | 2017-12-23 09:00 | NUR ---
Patient denies any complaints of N/V/D throughout night or today. Remains on CL diet. Fluids and ABT continue, held ASA and metformin this morning. Plan is to transfer to [facility], patient and family aware.
[2017-12-23] MEDS ORDERED: CIPROFLOXACIN 400MG PREMIX 200 ML IV SCH (09:30)
[2017-12-23] MEDS ORDERED: PANTOPRAZOLE 40 MG TABLET. PO SCH (09:30)
[2017-12-23 10:28] VITALS: BP 130/66
--- NOTE | 2017-12-23 11:21 | NUR ---
[facility] called, will be notifing staff of bed placement soon. Patient resting at this time.
--- NOTE | 2017-12-23 11:55 | NUR ---
Report given to Marii WEST at [facility]. [facility] notified at this time. Patient notified of transfer at this time.
--- NOTE | 2017-12-23 12:59 | NUR ---
Transfer via EMS at this time. Belongings left with patient. VSS
--- NOTE | 2017-12-23 15:12 | HP ---
ADMIT DATE: 12/22/2017 HISTORY OF PRESENT ILLNESS: The patient is a 67-year-old gentleman who recently had a surgery on 12/08/2017 with thereabouts at [facility] to have his gallbladder removed. The patient, prior to that had pancreatitis. Anyway, he came in, he had 5 episodes of vomiting and 5 more episodes of diarrhea with black tarry stools after eating. As a result of this, the patient came in through the Emergency Room for further evaluation. The CT scan showed a 6 cm pooling of fluid in the remaining gallbladder fossa and basically that was it, although he did have heme positive stools. The patient was admitted for this seroma as well as a possible GI bleed. PAST MEDICAL HISTORY: Coronary artery disease, diverticulitis, diabetes. He has had previous histories of myocardial infarctions, hearing loss, cardiac stent placement, anticoagulant therapy, hypercholesterolemia, endocrine disorders, history of Clostridium difficile, pneumonia and flu and pneumonia shots are up-to-date. FAMILY HISTORY: Positive for diabetes. ALLERGIES: No known allergies. MEDICATIONS: Levaquin 500 mg a day, metronidazole 500 t.i.d., Brilinta 90 mg b.i.d., Lipitor 80, carvedilol 6.25 b.i.d., lisinopril 5, aspirin, probiotics, metformin b.i.d., insulin Lantus 20 units. SOCIAL HISTORY: The patient denies smoking or alcohol use. Lives at home. REVIEW OF SYSTEMS: Denies any headaches, visual change, blurred vision, double vision, just feels weak with nausea, some vomiting as well as diarrhea and black tarry stools. PHYSICAL EXAMINATION: GENERAL: An elderly white male, looking somewhat older than stated age. VITAL SIGNS: His blood pressure initially was 120/50, respiratory rate 22, pulse 120, afebrile. HEENT: The patient's head was atraumatic, normocephalic. Eyes: PERRLA without jaundice. The mouth and throat were normal. NECK: Supple, without JVD or thyromegaly. LUNGS: Diminished throughout, but clear. CARDIOVASCULAR: Regular sinus rhythm, S1, S2. ABDOMEN: Soft, diffuse tenderness in the epigastric right upper quadrant area. There slight guarding, but no rebounding, positive bowel sounds, no hepatosplenomegaly. Stool hemoccult positive. NEUROLOGIC: Intact baselines. The patient is otherwise is basically stable. LABORATORY DATA: The patient's white count was over 18,000. IMPRESSION AND PLAN: Sepsis, possible seroma, type 2 diabetes. The patient will be admitted. Continue on IV antibiotic therapy. The patient was stabilized, he was transferred to Dr. Iglesias, a noted surgeon down at [facility] for further evaluation and treatment thereof. RAFAEL PARRA MD DR: SKIP/nts JOB#: [id number] / [id number]
[2017-12-23] MEDS ORDERED: INSULIN GLARGINE 300 UNITS/3 ML INSULN.PEN. SQ SCH (21:00)
[2017-12-23] MEDS ORDERED: ATORVASTATIN CALCIUM 20 MG TABLET PO SCH ×4 (21:00)
== END 2017-12-23 13:01 | disposition short-term general hospital (02) | DRG 871 ==
LOC: ER 15:26 → 1 SOUTH 19:00 → UNDOADMIN 19:00 → ER 19:33
PROVIDERS: ADMIT Family Medicine; ATTEND Family Medicine
DX: A41.9 Sepsis, unspecified organism (principal); K57.33 Diverticulitis of large intestine without perforation or abscess with bleeding; K86.1 Other chronic pancreatitis; K52.9 Noninfective gastroenteritis and colitis, unspecified; D64.9 Anemia, unspecified; E86.0 Dehydration; H91.90 Unspecified hearing loss, unspecified ear; T14.8XXA Other injury of unspecified body region, initial encounter; X58.XXXA Exposure to other specified factors, initial encounter; I25.10 Atherosclerotic heart disease of native coronary artery without angina pectoris; E11.9 Type 2 diabetes mellitus without complications; E78.00 Pure hypercholesterolemia, unspecified; Z83.3 Family history of diabetes mellitus; Z79.899 Other long term (current) drug therapy; Z95.5 Presence of coronary angioplasty implant and graft; Y93.89 Activity, other specified; Y92.89 Other specified places as the place of occurrence of the external cause; Y99.8 Other external cause status; Z90.49 Acquired absence of other specified parts of digestive tract
CPT/HCPCS: 36415; 74176; 80048; 80053; 81001; 82150; 82274; 83605; 83690; 84484; 85007; 85025; 85610; 87040; 96365; 96366; 96368; 96375; 99292; C9113; J0744; J1815; J2405; J3490; J7120; 99291-25; J7030

== ENCOUNTER 2018-01-28 10:34 | Inpatient (IN) | payer MEDICARE, BC ==
[~2018-01-28] VITALS: Ht 180.3 cm; Wt 96.2 kg
[2018-01-28] MEDS ORDERED: ONDANSETRON PF 4 MG/2 ML VIAL. ONE (10:47)
[2018-01-28] MEDS ORDERED: IV NORMAL SALINE 1,000ML 1,000 ML IV SCH (11:00)
[2018-01-28 11:18] LABS: BASO # 0.1 x10^3/uL (0.0-0.2); BASO % 1 % (0-3); EOS # 0.8 x10^3/uL (0.0-0.7); EOS % 7 % (0-3); HEMATOCRIT 41.9 % (39.0-53.0); HEMOGLOBIN 14.4 g/dL (13.0-17.5); LYMPH # 2.6 x10^3/uL (1.0-4.8); LYMPH % 21 % (24-48); MEAN CORPUSCULAR HEMOGLOBIN 32 pg (25-35); MEAN CORPUSCULAR HGB CONC 34 g/dL (31-37); MEAN CORPUSCULAR VOLUME 94 fL (79-100); MONO # 0.8 x10^3/uL (0.0-1.1); MONO % 7 % (0-9); NEUT # 7.9 x10^3uL (1.8-7.7); NEUT % 65 % (31-73); PLATELET COUNT 352 x10^3/uL (140-400); RED BLOOD COUNT 4.46 x10^6/uL (4.30-5.70); RED CELL DISTRIBUTION WIDTH 13.9 % (11.5-14.5); WHITE BLOOD COUNT 12.2 x10^3/uL (4.0-11.0)
--- NOTE | 2018-01-28 11:33 | RAD ---
Examination: Acute abdomen series HISTORY: History of abdominal pain, nausea, vomiting COMPARISON: 11/23/2017 FINDINGS: The cardiomediastinal silhouette grossly appears unremarkable. There is no acute infiltrate or visualized pneumothorax identified Cholecystectomy clips identified. The bowel gas pattern appears unremarkable. Feces and gas noted in the colon. IMPRESSION: 1. No acute cardiopulmonary findings. 2. Unremarkable bowel gas pattern. Electronically signed by: Anibal Desai MD (01/28/2018 11:30 AM) [id number]
[2018-01-28 11:40] LABS: ALBUMIN/GLOBULIN RATIO 1.1 (1.0-1.7); CALCIUM 9.8 mg/dL (8.5-10.1); CREATININE 1.3 mg/dL (0.7-1.3); GFR 55.4; POTASSIUM 4.1 mmol/L (3.5-5.1); TOTAL BILIRUBIN 0.5 mg/dL (0.2-1.0); TOTAL PROTEIN 7.8 g/dL (6.4-8.2)
[2018-01-28] MEDS ORDERED: IOHEXOL 300 MG/ML 75 ML VIAL. IV ONE (12:30)
--- NOTE | 2018-01-28 13:05 | RAD ---
PQRS Compliance Statement: One or more of the following individualized dose reduction techniques were utilized for this examination: 1. Automated exposure control 2. Adjustment of the mA and/or kV according to patient size 3. Use of iterative reconstruction technique CT ABD PELV W/ IV CONTRST ONLY Clinical Indication: Vomiting, abdominal pain, history of diverticulitis. Comparison: CT abdomen and pelvis without contrast December 22, 2017. Technique: Helical CT imaging of the abdomen and pelvis is performed after 60 cc of Omnipaque 300 IV contrast. Oral contrast not given. Findings: Respiratory motion artifact in the lung bases. There is a branching opacity in the left lower lobe that could be due to peribronchiolar thickening. Finding may be infectious/inflammatory. Lung bases are otherwise clear. There is coronary artery disease. The cardiac size is normal. Cholecystectomy. The gallbladder fossa fluid and air collection is significantly smaller now measuring 2.2 x 4.8 cm. The liver, spleen, and adrenal glands are normal. Abdominal aorta is atherosclerotic with mural thrombus. There is no aneurysm. No peripancreatic inflammation. There are a few calcifications of the pancreas. There is no hydronephrosis. Moderate size cyst upper pole right kidney. Partially calcified exophytic cyst at the lower pole of the right kidney is stable. There is a small cyst at the lower pole the left kidney. Interpolar left cyst with small wall calcification or milk of calcium inferiorly is stable, images 37 and 38. Stomach unremarkable. The appendix is normal. There is no dilated small bowel. There is severe descending and sigmoid colon diverticulosis. No colon wall thickening is identified. There is no abdominal adenopathy or free fluid. Small left lateral bladder diverticulum. No urinary bladder wall thickening is appreciated. Prostate size normal. No pelvic free fluid. No acute bone abnormality. IMPRESSION: 1. Question infectious/inflammatory nodule in the left lower lobe. Suggest attention on follow-up. 2. Gallbladder fossa fluid collection is significantly smaller. 3. Redemonstrated findings of chronic calcific pancreatitis. 4. Bilateral complicated renal cysts are stable. Recommend continued follow-up. 5. Severe distal colon diverticulosis without diverticulitis. 6. Small bladder diverticulum. Electronically signed by: Waldemar Solitario MD (01/28/2018 1:01 PM) [id number]
--- NOTE | 2018-01-28 13:22 | PHYS DOC ---
Past History Past Medical History: Diverticulitis, Diabetes, GI Bleed, Hypertension, ND Past Surgical History: Cholecystectomy Alcohol Use: None Drug Use: None Adult General Chief Complaint Chief Complaint: NAUSEA/VOMITING/DIARRHEA HPI HPI Patient is a 67 year old male who presents with complaint of nausea, vomiting, and abdominal pain. Patient states that his symptoms started over the past 2 days. Patient has history of recent cholecystectomy resulting in a postsurgical complications of bleeding. The patient was admitted to the hospital in December 2017 where he was treated and released. The patient has had history of diverticulitis resulting in nausea, vomiting, dizziness, but few complaints of pain at that time. Patient states that he did have discomfort associated with that that is not present today. Patient is having pain in his upper abdomen and chest. Denies fever. Patient has had multiple episodes of vomiting and has not been able to tolerate any oral intake. Rates pain as 6 out of 10 on my evaluation. Patient also Dr. Parra for primary care. Review of Systems Review of Systems Constitutional: Denies fever or chills [] Eyes: Denies change in visual acuity, redness, or eye pain [] HENT: Denies nasal congestion or sore throat [] Respiratory: Denies cough or shortness of breath [] Cardiovascular: Chest pain[] GI: Nausea, vomiting, abdominal pain, denies bloody stools or diarrhea [] : Denies dysuria or hematuria [] Musculoskeletal: Denies back pain or joint pain [] Integument: Denies rash or skin lesions [] Neurologic: Denies headache, focal weakness or sensory changes [] All other systems were reviewed and found to be within normal limits, except as documented in this note. Current Medications Current Medications Current Medications Medications (Trade) Dose Ordered Sig/Jelani Start Time Stop Time Status Last Admin Dose Admin Fentanyl Citrate (Fentanyl 2ml Vial) 50 mcg 1X ONCE 01/28/18 12:00 01/28/18 12:01 DC 01/28/18 11:59 50 MCG Insulin Glargine (Lantus) 20 units QHS 01/28/18 21:00 UNV Iohexol (Omnipaque 300 Mg/ml) 75 ml 1X ONCE 01/28/18 12:30 01/28/18 12:31 DC 01/28/18 12:33 75 ML Non-Formulary Medication (Aspirin (Aspir-Low)) 81 mg DAILY 01/29/18 09:00 UNV Non-Formulary Medication (Atorvastatin Calcium ) 80 mg QHS 01/28/18 21:00 UNV Non-Formulary Medication (Carvedilol ) 1 tab BID 01/28/18 21:00 UNV Non-Formulary Medication (Lactobacillus Acidophilus (Probiotic)) 1 each BID 01/28/18 21:00 UNV Non-Formulary Medication (Lisinopril ) 5 mg DAILY 01/29/18 09:00 UNV Non-Formulary Medication (Metformin Hcl ) 500 mg BIDWMEALS 01/28/18 17:00 UNV Ondansetron HCl (Zofran) 4 mg STK-MED ONCE 01/28/18 10:47 01/28/18 10:48 DC Sodium Chloride 1,000 ml @ 1,000 mls/hr Q1H 01/28/18 11:00 01/28/18 11:59 DC 01/28/18 11:31 1,000 MLS/HR Ticagrelor (Brilinta) 90 mg BID 01/28/18 21:00 UNV Allergies Allergies Allergies Coded Allergies Type Severity Reaction Last Updated Verified No Known Drug Allergies 10/05/17 No Physical Exam Physical Exam Constitutional: Alert, afebrile, appears ill. [] HENT: Normocephalic, atraumatic, bilateral external ears normal, oropharynx moist, no oral exudates, nose normal. [] Eyes: PERRLA, EOMI, conjunctiva normal, no discharge. [] Neck: Normal range of motion, no tenderness, supple, no stridor. [] Cardiovascular:Heart rate regular rhythm, no murmur [] Lungs & Thorax: Bilateral breath sounds clear to auscultation [] Abdomen: Bowel sounds normal, soft, mild epigastric tenderness to palpation, no guarding or rebound tenderness, no masses, no pulsatile masses. [] Skin: Warm, dry, no erythema, no rash. [] Back: No tenderness, no CVA tenderness. [] Extremities: No tenderness, no cyanosis, no clubbing, ROM intact, no edema. [] Neurologic: Alert and oriented X 3, normal motor function, normal sensory function, no focal deficits noted. [] Current Patient Data Vital Signs Vital Signs Date Time Temp Pulse Resp B/P (MAP) Pulse Ox O2 Delivery O2 Flow Rate FiO2 01/28/18 12:02 70 22 136/90 (105) 100 01/28/18 11:59 Room Air 01/28/18 11:16 97.9 Lab Results Laboratory Tests Test 01/28/18 10:50 White Blood Count 12.2 x10^3/uL (4.0-11.0) H Red Blood Count 4.46 x10^6/uL (4.30-5.70) Hemoglobin 14.4 g/dL (13.0-17.5) Hematocrit 41.9 % (39.0-53.0) Mean Corpuscular Volume 94 fL (79-100) Mean Corpuscular Hemoglobin 32 pg (25-35) Mean Corpuscular Hemoglobin Concent 34 g/dL (31-37) Red Cell Distribution Width 13.9 % (11.5-14.5) Platelet Count 352 x10^3/uL (140-400) Neutrophils (%) (Auto) 65 % (31-73) Lymphocytes (%) (Auto) 21 % (24-48) L Monocytes (%) (Auto) 7 % (0-9) Eosinophils (%) (Auto) 7 % (0-3) H Basophils (%) (Auto) 1 % (0-3) Neutrophils # (Auto) 7.9 x10^3uL (1.8-7.7) H Lymphocytes # (Auto) 2.6 x10^3/uL (1.0-4.8) Monocytes # (Auto) 0.8 x10^3/uL (0.0-1.1) Eosinophils # (Auto) 0.8 x10^3/uL (0.0-0.7) H Basophils # (Auto) 0.1 x10^3/uL (0.0-0.2) Sodium Level 139 mmol/L (136-145) Potassium Level 4.1 mmol/L (3.5-5.1) Chloride Level 103 mmol/L (98-107) Carbon Dioxide Level 25 mmol/L (21-32) Anion Gap 11 (6-14) Blood Urea Nitrogen 21 mg/dL (8-26) Creatinine 1.3 mg/dL (0.7-1.3) Estimated GFR (Cockcroft-Gault) 55.4 BUN/Creatinine Ratio 16 (6-20) Glucose Level 180 mg/dL (70-99) H Calcium Level 9.8 mg/dL (8.5-10.1) Total Bilirubin 0.5 mg/dL (0.2-1.0) Aspartate Amino Transferase (AST) 19 U/L (15-37) Alanine Aminotransferase (ALT) 33 U/L (16-63) Alkaline Phosphatase 150 U/L (46-116) H Creatine Kinase 72 U/L (39-308) Creatine Kinase MB (Mass) 1.6 ng/mL (0.0-3.6) Creatine Kinase MB Relative Index 2.2 % (0-4) Troponin I Quantitative < 0.017 ng/mL (0-0.055) Total Protein 7.8 g/dL (6.4-8.2) Albumin 4.0 g/dL (3.4-5.0) Albumin/Globulin Ratio 1.1 (1.0-1.7) Lipase 177 U/L (73-393) EKG EKG EKG #1 at 1124 interpreted by me: Heart rate 78, sinus rhythm, normal intervals , normal axis, no acute ST/T-wave abnormalities present EKG #2 at 1154 interpreted by me: Heart rate 68, sinus rhythm, no changes from previous EKG[] Radiology/Procedures Radiology/[place] [id number] IMAGING REPORT Signed PATIENT: VONNIE FORREST ACCOUNT: [id number] : 1950 LOCATION: ER AGE: 67 SEX: M EXAM STATUS: REG ER ORD. PHYSICIAN: RENO CRUZ MD REASON: vomiting, abdominal pain, history of diverticulitis PROCEDURE: CT ABD PELV W/ IV CONTRST ONLY PQRS Compliance Statement: One or more of the following individualized dose reduction techniques were utilized for this examination: 1. Automated exposure control 2. Adjustment of the mA and/or kV according to patient size 3. Use of iterative reconstruction technique CT ABD PELV W/ IV CONTRST ONLY Clinical Indication: Vomiting, abdominal pain, history of diverticulitis. Comparison: CT abdomen and pelvis without contrast December 22, 2017. Technique: Helical CT imaging of the abdomen and pelvis is performed after 60 cc of Omnipaque 300 IV contrast. Oral contrast not given. Findings: Respiratory motion artifact in the lung bases. There is a branching opacity in the left lower lobe that could be due to peribronchiolar thickening. Finding may be infectious/inflammatory. Lung bases are otherwise clear. There is coronary artery disease. The cardiac size is normal. Cholecystectomy. The gallbladder fossa fluid and air collection is significantly smaller now measuring 2.2 x 4.8 cm. The liver, spleen, and adrenal glands are normal. Abdominal aorta is atherosclerotic with mural thrombus. There is no aneurysm. No peripancreatic inflammation. There are a few calcifications of the pancreas. There is no hydronephrosis. Moderate size cyst upper pole right kidney. Partially calcified exophytic cyst at the lower pole of the right kidney is stable. There is a small cyst at the lower pole the left kidney. Interpolar left cyst with small wall calcification or milk of calcium inferiorly is stable, images 37 and 38. Stomach unremarkable. The appendix is normal. There is no dilated small bowel. There is severe descending and sigmoid colon diverticulosis. No colon wall thickening is identified. There is no abdominal adenopathy or free fluid. Small left lateral bladder diverticulum. No urinary bladder wall thickening is appreciated. Prostate size normal. No pelvic free fluid. No acute bone abnormality. IMPRESSION: 1. Question infectious/inflammatory nodule in the left lower lobe. Suggest attention on follow-up. 2. Gallbladder fossa fluid collection is significantly smaller. 3. Redemonstrated findings of chronic calcific pancreatitis. 4. Bilateral complicated renal cysts are stable. Recommend continued follow-up. 5. Severe distal colon diverticulosis without diverticulitis. 6. Small bladder diverticulum. Electronically signed by: Waldemar Solitario MD (01/28/2018 1:01 PM) [id number] DICTATED AND SIGNED BY: WALDEMAR SOLITARIO MD DATE: 01/28/18 1246 CC: RAFAEL PARRA MD; RENO CRUZ MD ~ [] Course & Med Decision Making Course & Med Decision Making Pertinent Labs and Imaging studies reviewed. (See chart for details) The patient was treated with IV Zofran and fentanyl in the emergency department. Patient started on IV fluids. EKG and initial troponin negative. I spoke with patient's primary physician, Dr. Parra, and he has agreed to accept patient for continued treatment of abdominal pain and rule out of possible myocardial infarction. Spoke with patient regarding plan of care and they were in agreement at time of admission. Dragon Disclaimer Dragon Disclaimer This electronic medical record was generated, in whole or in part, using a voice recognition dictation system. Departure Departure: Impression: Primary Impression: Abdominal pain Additional Impressions: Nausea and vomiting Chest pain Disposition: ADMITTED INPATIENT Admitting Physician: Rafael Parra Condition: STABLE Referrals: RAFAEL PARRA MD (PCP) Problem Qualifiers Primary Impression: Abdominal pain Abdominal location: epigastric Qualified Codes: R10.13 - Epigastric pain Additional Impressions: Nausea and vomiting Vomiting type: unspecified Vomiting Intractability: unspecified Qualified Codes: R11.2 - Nausea with vomiting, unspecified Chest pain Chest pain type: unspecified Qualified Codes: R07.9 - Chest pain, unspecified RENO CRUZ MD Jan 28, 2018 13:22
[2018-01-28] MEDS ORDERED: ESOM40CA PO (14:15)
[2018-01-28] MEDS ORDERED: ONDANSETRON PF 4 MG/2 ML VIAL. IV PRN (14:30)
[2018-01-28 15:13] VITALS: BP 129/76
[2018-01-28] MEDS ORDERED: CONTRAST GIVEN MC PRN (15:15)
[2018-01-28 16:13] LABS: BACTERIA,URINE 0 /HPF (0-FEW); BILIRUBIN,URINE NEG (NEG); CLARITY,URINE CLEAR; COLOR,URINE YELLOW; GLUCOSE,URINE NEG (NEG); HYALINE CASTS, URINE OCC /HPF; NITRITE,URINE NEG (NEG); RBC,URINE 0 /HPF (0-2); UROBILINOGEN,URINE 0.2 mg/dL (0.2 mg/dL); WBC,URINE RARE /HPF (0-4)
[2018-01-28] MEDS: CARVEDILOL 6.25 MG TABLET PO SCH (16:36)
[2018-01-28] MEDS: IV NORMAL SALINE 1,000ML 1,000 ML IV SCH (16:36)
[2018-01-28 20:17] VITALS: BP 153/84
[2018-01-28] MEDS: LACTOBACILLUS RHAMNOSUS GG 1 CAPSULE. PO SCH (20:26)
[2018-01-28] MEDS: ATORVASTATIN CALCIUM 20 MG TABLET PO SCH (20:26)
[2018-01-28] MEDS: TICAGRELOR 90 MG TABLET. PO SCH (20:27)
[2018-01-28] MEDS: INSULIN GLARGINE 300 UNITS/3 ML INSULN.PEN. SQ SCH (20:44)
[2018-01-28 23:06] VITALS: BP 125/70
[2018-01-29] MEDS: IV NORMAL SALINE 1,000ML 1,000 ML IV SCH ×3 (02:13→23:05)
[2018-01-29 05:14] VITALS: BP 121/73
--- NOTE | 2018-01-29 06:30 | EKG ---
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
[2018-01-29 06:46] LABS: BASO % 1 % (0-3); EOS # 0.4 x10^3/uL (0.0-0.7); EOS % 5 % (0-3); HEMATOCRIT 32.7 % (39.0-53.0); HEMOGLOBIN 11.4 g/dL (13.0-17.5); LYMPH # 1.9 x10^3/uL (1.0-4.8); LYMPH % 21 % (24-48); MEAN CORPUSCULAR HEMOGLOBIN 33 pg (25-35); MEAN CORPUSCULAR HGB CONC 35 g/dL (31-37); MEAN CORPUSCULAR VOLUME 95 fL (79-100); MONO # 0.7 x10^3/uL (0.0-1.1); MONO % 8 % (0-9); NEUT # 5.8 x10^3uL (1.8-7.7); NEUT % 65 % (31-73); PLATELET COUNT 234 x10^3/uL (140-400); RED BLOOD COUNT 3.46 x10^6/uL (4.30-5.70); RED CELL DISTRIBUTION WIDTH 13.9 % (11.5-14.5); WHITE BLOOD COUNT 8.9 x10^3/uL (4.0-11.0)
[2018-01-29 06:57] LABS: CREATININE 1.1 mg/dL (0.7-1.3); GFR 67.2
[2018-01-29] MEDS: LISINOPRIL 5 MG TABLET. PO SCH (09:26)
[2018-01-29] MEDS: ASPIRIN 81 MG TAB.CHEW PO SCH (09:26)
[2018-01-29] MEDS: LACTOBACILLUS RHAMNOSUS GG 1 CAPSULE. PO SCH ×2 (09:26→23:06)
[2018-01-29] MEDS: PANTOPRAZOLE 40 MG TABLET. PO SCH (09:27)
[2018-01-29] MEDS: TICAGRELOR 90 MG TABLET. PO SCH ×2 (09:27→23:06)
[2018-01-29] MEDS: CARVEDILOL 6.25 MG TABLET PO SCH ×2 (09:27→17:50)
--- NOTE | 2018-01-29 11:53 | HP ---
ADMIT DATE: 01/28/2018 HISTORY OF PRESENT ILLNESS: A 67-year-old gentleman, came in through the Emergency Room, apparently with nausea, vomiting, severe abdominal pain and also complaining of some chest pain. The patient has a history of chronic pancreatitis. He was seen initially in the Emergency Room and followup CT scans were basically unremarkable but showed chronic pancreatitis and the patient has also had some multiple episodes of vomiting. The patient was admitted to the hospital for further evaluation of his abdominal pain with nausea, vomiting and chest pain. The patient is for cardiac enzymes, rule out [place] protocol. PAST MEDICAL HISTORY: The patient has deafness in the left ear, hearing aid. He has had a heart attack in 08/2017, coronary artery disease, coronary stent x 2, hypercholesterolemia, C. difficile, diverticulitis, chronic pancreatitis, cholecystectomy in 11/2017, abdominal surgery, obesity general, multiple urinary tract infections, knee twitches, severe degenerative arthritis, type 2 diabetes, influenza, pneumococcal vaccinations are up-to-date, C. diff. positive, pressure ulcers. FAMILY HISTORY: Positive family history mother with type 2 diabetes. ALLERGIES: No known drug allergies are there. MEDICATIONS: Brilinta 90 mg b.i.d., Lipitor 80, carvedilol 6.25 b.i.d., lisinopril 5 mg daily, aspirin, probiotic, Nexium 40 mg daily, metformin 500 mg b.i.d., Lantus 20 units at bedtime. SOCIAL HISTORY: The patient has a previous history of smoking, none presently. The patient denies any alcohol or drug use. He lives at home with his . REVIEW OF SYSTEMS: The patient denies any headaches, vision change, blurred vision or double vision. He does have nausea, vomiting. He does have chest pain. Denies any melena, hematochezia, or hematemesis are neurologically baseline for this individual. PHYSICAL EXAMINATION: GENERAL: This is a pleasant white male. VITAL SIGNS: Blood pressure 150/84, respiration 16, pulse 72, afebrile. HEENT: The patient's head was atraumatic, normocephalic. Eyes, PERRLA without jaundice. Mouth and throat were normal. NECK: Supple, no JVD or thyromegaly. LUNGS: Diminished throughout, poor movement of air. CARDIOVASCULAR: Regular sinus rhythm, S1, S2, without murmur, rub, thrill, or extra heart sound. ABDOMEN: Soft, nontender, no rebound or guarding. Positive bowel sounds. No hepatosplenomegaly was noted. EXTREMITIES: No clubbing, cyanosis, no edema. NEUROLOGIC: The patient was alert and oriented x 3. Speech fluent, spontaneous, appropriate. Cranial nerves 2-12 are grossly intact. The patient was admitted for further evaluation and treatment thereof. LABORATORY AND DIAGNOSTIC DATA: The patient's labs showed an elevated white count of 12,000. Cardiac enzymes were negative. Blood sugars were elevated as high as 290. The patient's UA was unremarkable. Chest x-ray is pending. Abdominal CT scans were basically unremarkable. Possible inflammatory nodule left lower lobe, we will follow up on that. IMPRESSION AND PLAN: Overall impression therefore, nausea, vomiting, abdominal pain, chest pain, left lower lobe nodule needs to be followed up. Chronic pancreatitis, continue to monitor, and type 2 diabetes, continue to monitor the patient, make further evaluation and cardiology consultation. RAFAEL PARRA MD DR: SKIP/vidya JOB#: [id number] / [id number]
--- NOTE | 2018-01-29 11:58 | EKG ---
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
[2018-01-29 12:13] VITALS: BP 127/74
[2018-01-29 15:47] VITALS: BP 127/72
--- NOTE | 2018-01-29 15:49 | RAD ---
Chest, 2 views, 01/29/2018: History: Chest pain Comparison is made to a study from 01/28/2018. The heart size and pulmonary vascularity are normal. There is mild streaky atelectasis or infiltrate laterally in the left base. The lungs are otherwise clear. There is no evidence of pleural fluid. IMPRESSION: Minimal streaky left basilar atelectasis/infiltrate.
[2018-01-29 19:51] LABS: COLOR,URINE YELLOW
[2018-01-29 19:52] LABS: BACTERIA,URINE 0 /HPF (0-FEW); BILIRUBIN,URINE NEG (NEG); CLARITY,URINE CLEAR; GLUCOSE,URINE NEG (NEG); NITRITE,URINE NEG (NEG); SQUAMOUS EPITHELIAL CELL,UR FEW /LPF; UROBILINOGEN,URINE 0.2 mg/dL (0.2 mg/dL); WBC,URINE OCC /HPF (0-4)
[2018-01-29 20:40] VITALS: BP 144/79
[2018-01-29] MEDS: ATORVASTATIN CALCIUM 20 MG TABLET PO SCH (23:06)
[2018-01-29] MEDS: INSULIN GLARGINE 300 UNITS/3 ML INSULN.PEN. SQ SCH (23:07)
[2018-01-29 23:22] VITALS: BP 156/79
[2018-01-30 06:11] VITALS: BP 144/82
[2018-01-30] MEDS: ASPIRIN 81 MG TAB.CHEW PO SCH (08:42)
[2018-01-30] MEDS: CARVEDILOL 6.25 MG TABLET PO SCH ×2 (08:42→17:24)
[2018-01-30] MEDS: LACTOBACILLUS RHAMNOSUS GG 1 CAPSULE. PO SCH ×2 (08:42→20:59)
[2018-01-30] MEDS: PANTOPRAZOLE 40 MG TABLET. PO SCH (08:42)
[2018-01-30] MEDS: LISINOPRIL 5 MG TABLET. PO SCH (08:43)
[2018-01-30] MEDS: TICAGRELOR 90 MG TABLET. PO SCH ×2 (08:43→20:59)
[2018-01-30] MEDS: IV NORMAL SALINE 1,000ML 1,000 ML IV SCH (08:56)
[2018-01-30 10:40] VITALS: BP 150/83
[2018-01-30] MEDS: cefTRIAXone IV Push 1 GM VIAL. IVP SCH (13:43)
[2018-01-30 15:35] VITALS: BP 154/81
--- NOTE | 2018-01-30 16:57 | PDOC2 ---
CARDIAC CONSULT DATE OF CONSULT Date Of Consult DATE: 01/30/18 TIME: 16:49 REASON FOR CONSULT Reason for Consult Chest pain and history of coronary artery disease REFERRING PHYSICIAN Referring Physician Dr. Villa SOURCE Source: Chart review, Patient HPI History of Present Illness The patient is a 67-year-old male who presented to the emergency room with 2-3 days of nausea, vomiting and abdominal discomfort. Patient has a history of a recent cholecystectomy with postop complications. He also has a history of chronic pancreatitis. Additionally the patient has a history of coronary artery disease and apparently had a myocardial infarction in August of this year with probable stenting. He was treated overnight and this morning is feeling much better. His abdominal pain has greatly improved. His chest discomfort has resolved. Initial troponin is normal at less than 0.017. His EKG shows a sinus rhythm with minimal nonspecific ST-T wave changes. PAST MEDICAL HISTORY Cardiovascular: CAD, HTN, ID GI: Other (chronic pancreatitis) Endocrine: Diabetes PAST SURGICAL HISTORY Past Surgical History: Cholecystectomy, Other (probable coronary stents) FAMILY HISTORY Family History: Diabetes SOCIAL HISTORY Smoke: No ALCOHOL: none CURRENT MEDICATIONS Current Medications Current Medications Ondansetron HCl (Zofran) 4 mg STK-MED ONCE .ROUTE ; Start 01/28/18 at 10:47; Stop 01/28/18 at 10:48; Status DC Sodium Chloride 1,000 ml @ 1,000 mls/hr Q1H IV Last administered on 01/28/18at 11:31; Start 01/28/18 at 11:00; Stop 01/28/18 at 11:59; Status DC Fentanyl Citrate (Fentanyl 2ml Vial) 50 mcg 1X ONCE IV Last administered on 04/07at 11:59; Start 01/28/18 at 12:00; Stop 01/28/18 at 12:01; Status DC Iohexol (Omnipaque 300 Mg/ml) 75 ml 1X ONCE IV Last administered on 01/28/18at 12:33; Start 01/28/18 at 12:30; Stop 01/28/18 at 12:31; Status DC Insulin Glargine (Lantus) 20 units QHS SQ Last administered on 01/29/18at 23:07 ; Start 01/28/18 at 21:00 Ticagrelor (Brilinta) 90 mg BID PO Last administered on 01/30/18at 08:43; Start 01/28/18 at 21:00 Aspirin (Children'S Aspirin) 81 mg DAILYWBKFT PO Last administered on at 08:42; Start 01/29/18 at 08:00 Atorvastatin Calcium (Lipitor) 80 mg QHS PO Last administered on 01/29/18at 23: 06; Start 01/28/18 at 21:00 Carvedilol (Coreg) 6.25 mg BIDWMEALS PO Last administered on 01/30/18at 08:42; Start 01/28/18 at 17:00 Lactobacillus Rhamnosus (Culturelle) 1 cap BID PO Last administered on 08:42; Start 01/28/18 at 21:00 Lisinopril (Prinivil) 5 mg DAILY PO Last administered on 01/30/18 08:43; Start 01/29/18 at 09:00 Metformin HCl (Glucophage) 500 mg BIDWMEALS PO ; Start 01/30/18 at 17:00 Pantoprazole Sodium (Protonix) 40 mg DAILY PO Last administered on 01/30/18at 08 :42; Start 01/29/18 at 09:00 Ondansetron HCl (Zofran) 4 mg PRN Q8HRS PRN IV NAUSEA/VOMITING; Start 01/28/18 at 14:30 Info (Do NOT chart on this entry -- for MONITORING) 1 each PRN DAILY PRN MC SEE COMMENTS; Start 01/28/18 at 15:15; Stop 01/30/18 at 15:14; Status DC Sodium Chloride 1,000 ml @ 100 mls/hr Q10H IV Last administered on 01/30/18at 08:56; Start 01/28/18 at 16:00; Stop 01/30/18 at 11:05; Status DC Ceftriaxone Sodium 1 gm/ Sodium Chloride 50 ml @ 100 mls/hr Q24H IV ; Start 06/07 at 11:30; Stop 01/30/18 at 11:40; Status DC Levofloxacin/ Dextrose 100 ml @ 100 mls/hr Q24H IV Last administered on at 13:43; Start 01/30/18 at 11:30 Ceftriaxone Sodium (Rocephin) 1 gm Q24H IVP Last administered on 01/30/18at 13: 43; Start 01/30/18 at 11:45 Active Scripts Active Reported Nexium Capsule (Esomeprazole Magnesium) 40 Mg Capsule. 1 Cap PO DAILY Probiotic (Lactobacillus Acidophilus) 1 Each Capsule 1 Each PO BID LAST DOSE GIVEN: DATE: TIME: NEXT DOSE DUE: DATE: TIME: Brilinta (Ticagrelor) 90 Mg Tablet 90 Mg PO BID LAST DOSE GIVEN: DATE:TODAY TIME:MORNING NEXT DOSE DUE: DATE:TODAY TIME:BEDTIME Metformin Hcl 500 Mg Tablet 500 Mg PO BIDWMEALS LAST DOSE GIVEN: DATE:TODAY TIME:WITH BREAKFAST NEXT DOSE DUE: DATE:TODAY TIME:WITH DINNER Lisinopril 5 Mg Tablet 5 Mg PO DAILY LAST DOSE GIVEN: DATE:TODAY TIME:MORNING NEXT DOSE DUE: DATE:TOMORR TIME:MORNING Lantus Solostar (Insulin Glargine,Hum.rec.anlog) 100 Unit/1 Ml Insuln.pen 20 Unit SQ QHS LAST DOSE GIVEN: DATE: YESTER TIME: BEDTIME NEXT DOSE DUE: DATE: TIME: BEDTIME Carvedilol 6.25 Mg Tablet 1 Tab PO BID LAST DOSE GIVEN: DATE: TIME: MORNING NEXT DOSE DUE: DATE: TODAY TIME: BEDTIME Atorvastatin Calcium 80 Mg Tablet 80 Mg PO QHS LAST DOSE GIVEN: DATE: YESTER TIME: BEDTIME NEXT DOSE DUE: DATE: TODAY TIME: BEDTIME Aspir-Low (Aspirin) 81 Mg Tablet. 81 Mg PO DAILY LAST DOSE GIVEN: DATE: TIME: MORNING NEXT DOSE DUE: DATE: TOMORR TIME: MORNING ALLERGIES Allergies: Coded Allergies: No Known Drug Allergies (Unverified , 10/05/17) ROS Cardiovascular: yes: Chest Pain Gastrointestinal: YES: Nausea, Vomiting, Abdominal Pain PHYSICAL EXAM General: mild distress HEENT: Atraumatic Lungs: Clear to auscultation Heart: Regular rate Abdomen: Normal bowel sounds VITALS Vital Signs Vital Signs Date Time Temp Pulse Resp B/P (MAP) Pulse Ox O2 Delivery O2 Flow Rate FiO2 01/30/18 15:35 98.3 71 20 154/81 (105) 93 01/30/18 06:11 Room Air LABS LABS Laboratory Tests Test 01/28/18 17:02 01/28/18 20:24 01/29/18 06:30 01/29/18 07:52 Glucose (Fingerstick) 146 mg/dL (70-99) 290 mg/dL (70-99) 116 mg/dL (70-99) White Blood Count 8.9 x10^3/uL (4.0-11.0) Red Blood Count 3.46 x10^6/uL (4.30-5.70) Hemoglobin 11.4 g/dL (13.0-17.5) Hematocrit 32.7 % (39.0-53.0) Mean Corpuscular Volume 95 fL (79-100) Mean Corpuscular Hemoglobin 33 pg (25-35) Mean Corpuscular Hemoglobin Concent 35 g/dL (31-37) Red Cell Distribution Width 13.9 % (11.5-14.5) Platelet Count 234 x10^3/uL (140-400) Neutrophils (%) (Auto) 65 % (31-73) Lymphocytes (%) (Auto) 21 % (24-48) Monocytes (%) (Auto) 8 % (0-9) Eosinophils (%) (Auto) 5 % (0-3) Basophils (%) (Auto) 1 % (0-3) Neutrophils # (Auto) 5.8 x10^3uL (1.8-7.7) Lymphocytes # (Auto) 1.9 x10^3/uL (1.0-4.8) Monocytes # (Auto) 0.7 x10^3/uL (0.0-1.1) Eosinophils # (Auto) 0.4 x10^3/uL (0.0-0.7) Basophils # (Auto) 0.0 x10^3/uL (0.0-0.2) Sodium Level 138 mmol/L (136-145) Potassium Level 4.0 mmol/L (3.5-5.1) Chloride Level 106 mmol/L (98-107) Carbon Dioxide Level 27 mmol/L (21-32) Anion Gap 5 (6-14) Blood Urea Nitrogen 17 mg/dL (8-26) Creatinine 1.1 mg/dL (0.7-1.3) Estimated GFR (Cockcroft-Gault) 67.2 Glucose Level 112 mg/dL (70-99) Calcium Level 9.0 mg/dL (8.5-10.1) Test 01/29/18 10:56 01/29/18 12:06 01/29/18 16:15 01/29/18 17:09 D-Dimer (Elena) 0.67 mg/L (0.00-0.50) Glucose (Fingerstick) 162 mg/dL (70-99) 207 mg/dL (70-99) Urine Collection Type Unknown Urine Color Yellow Urine Clarity Clear Urine pH 6.0 Urine Specific [place] 1.020 Urine Protein Neg (NEG-TRACE) Urine Glucose (UA) Neg mg/dL (NEG) Urine Ketones (Stick) Neg mg/dL (NEG) Urine Blood Neg (NEG) Urine Nitrite Neg (NEG) Urine Bilirubin Neg (NEG) Urine Urobilinogen Dipstick 0.2 mg/dL (0.2 mg/dL) Urine Leukocyte Esterase Neg (NEG) Urine RBC 1-2 /HPF (0-2) Urine WBC Occ /HPF (0-4) Urine Squamous Epithelial Cells Few /LPF Urine Bacteria 0 /HPF (0-FEW) Urine Mucus Slight /LPF Test 01/29/18 22:33 01/30/18 07:30 01/30/18 11:24 01/30/18 11:30 Glucose (Fingerstick) 146 mg/dL (70-99) 108 mg/dL (70-99) 181 mg/dL (70-99) Lactic Acid Level 0.9 mmol/L (0.4-2.0) Test 01/30/18 16:37 Glucose (Fingerstick) 202 mg/dL (70-99) EKG EKG EKG shows a sinus rhythm with minimal nonspecific ST-T wave changes ASSESSMENT/PLAN Assessment/Plan 1. Abdominal pain with nausea and vomiting. Symptoms have largely resolved. Patient had a fairly recent cholecystectomy with postop complications. He also has chronic pancreatitis. He states he is feeling significantly better today. Would continue present treatment. 2. Chest discomfort. Chest discomfort has resolved. Initial troponin is normal. EKG shows no acute changes. Patient does have a history of coronary disease and possibly an intervention earlier this year. We'll continue present medications. We'll obtain old records. 3. Hypertension. Patient's blood pressures under better control. 4. Possible hyperlipidemia. We will check morning lab. 5. Diabetes mellitus. As per the primary service. Thank you for allowing us to participate in the care of your patient. NOHELIA GAR MD Jan 30, 2018 16:57
[2018-01-30] MEDS: metFORMIN 500 MG TABLET PO SCH (17:24)
[2018-01-30 20:33] VITALS: BP 157/71
[2018-01-30] MEDS: ATORVASTATIN CALCIUM 20 MG TABLET PO SCH (20:59)
[2018-01-30] MEDS: INSULIN GLARGINE 300 UNITS/3 ML INSULN.PEN. SQ SCH (21:01)
--- NOTE | 2018-01-30 21:29 | PN ---
DATE: 01/30/2018 SUBJECTIVE: The patient resting fairly comfortably. The patient has been seen by Dr. , wanted to review his case before making further decision. He has had previous MO here about 6 months ago. PHYSICAL EXAMINATION: VITAL SIGNS: Blood pressure 150/83, respiratory rate 20, pulse 73, afebrile. GENERAL: The patient has generalized weakness, very tired and unable to do much as far as walking and the like. Otherwise, he is resting fairly comfortably, but he may have an infiltrate in his left lower lobe. LUNGS: His lungs did sound a little bit course on today. The patient will be placed on IV antibiotic therapy for his chest x-ray (NC). Otherwise, the patient is resting fairly comfortably. Lungs were diminished, some crackles noted in the bases. CARDIOVASCULAR: Regular sinus rhythm. ABDOMEN: Soft, nontender. PLAN: We will go ahead and continue to monitor the patient accordingly. Continue with IV antibiotic therapy. IMPRESSION: Chest pain, possible pneumonia of unspecified etiology, community acquired; extremely hard of hearing. Continue to monitor the patient currently, make further evaluation on him as indicated. RAFAEL PARRA MD DR: SKIP/vidya JOB#: [id number] / [id number]
[2018-01-31 00:01] VITALS: BP 166/84
[2018-01-31 05:47] VITALS: BP 152/84
[2018-01-31] MEDS: LISINOPRIL 5 MG TABLET. PO SCH (08:14)
[2018-01-31] MEDS: CARVEDILOL 6.25 MG TABLET PO SCH (08:14)
[2018-01-31] MEDS: metFORMIN 500 MG TABLET PO SCH (08:15)
[2018-01-31] MEDS: PANTOPRAZOLE 40 MG TABLET. PO SCH (08:15)
[2018-01-31] MEDS: LACTOBACILLUS RHAMNOSUS GG 1 CAPSULE. PO SCH (08:15)
[2018-01-31] MEDS: ASPIRIN 81 MG TAB.CHEW PO SCH (08:15)
[2018-01-31] MEDS: TICAGRELOR 90 MG TABLET. PO SCH (08:15)
--- NOTE | 2018-01-31 09:10 | PDOC ---
PROGRESS NOTES Diagnosis Problem Problems Medical Problems: (1) Chest pain Status: Acute (2) Nausea and vomiting Status: Acute Assessment Problems Medical Problems: (1) Chest pain Status: Acute (2) Nausea and vomiting Status: Acute 1. Chest pain - Mi ruled out. Currently CP free. await echo and previous records. If echo without acute abn, ok for home and follow up with primary tipple mechanic. 2. CAD with PCI/stenting to LAD earlier this year. continue DAPT, beta olesya , statin. Angina free. Records requested for review. 2. HTN - increase ACEI 4. HLD - continue statin, lipids pending. Subjective no chest pain, no dyspnea, abdominal discomfort better. wants to go home. Objective Vital Signs Date Time Temp Pulse Resp B/P (MAP) Pulse Ox O2 Delivery O2 Flow Rate FiO2 01/31/18 08:14 78 152/84 01/31/18 05:47 99.5 18 94 Room Air Intake and Output 01/31/18 07:00 Intake Total 1118 ml Balance 1118 ml Intake Oral 1118 ml # Voids 7 Abdomen: Normal bowel sounds, Soft Heart: Regular rate, Normal S1, Normal S2 Extremities: No cyanosis, No edema, Normal pulses General: Alert, Oriented X3, Cooperative Lungs: Clear to auscultation, Normal air movement Neuro: Normal speech, Strength at 5/5 X4 ext Psych/Mental Status: Mental status NL, Mood NL Review of Relevant I have reviewed the following items david (where applicable) has been applied. Labs Laboratory Tests Test 01/29/18 10:56 01/29/18 12:06 01/29/18 16:15 01/29/18 17:09 D-Dimer (Elena) 0.67 mg/L (0.00-0.50) Glucose (Fingerstick) 162 mg/dL (70-99) 207 mg/dL (70-99) Urine Collection Type Unknown Urine Color Yellow Urine Clarity Clear Urine pH 6.0 Urine Specific [place] 1.020 Urine Protein Neg (NEG-TRACE) Urine Glucose (UA) Neg mg/dL (NEG) Urine Ketones (Stick) Neg mg/dL (NEG) Urine Blood Neg (NEG) Urine Nitrite Neg (NEG) Urine Bilirubin Neg (NEG) Urine Urobilinogen Dipstick 0.2 mg/dL (0.2 mg/dL) Urine Leukocyte Esterase Neg (NEG) Urine RBC 1-2 /HPF (0-2) Urine WBC Occ /HPF (0-4) Urine Squamous Epithelial Cells Few /LPF Urine Bacteria 0 /HPF (0-FEW) Urine Mucus Slight /LPF Test 01/29/18 22:33 01/30/18 07:30 01/30/18 11:24 01/30/18 11:30 Glucose (Fingerstick) 146 mg/dL (70-99) 108 mg/dL (70-99) 181 mg/dL (70-99) Lactic Acid Level 0.9 mmol/L (0.4-2.0) Test 01/30/18 16:37 01/30/18 21:08 01/31/18 05:55 01/31/18 07:26 Glucose (Fingerstick) 202 mg/dL (70-99) 229 mg/dL (70-99) 93 mg/dL (70-99) Troponin I Quantitative < 0.017 ng/mL (0-0.055) Medications Current Medications Ondansetron HCl (Zofran) 4 mg STK-MED ONCE .ROUTE ; Start 01/28/18 at 10:47; Stop 01/28/18 at 10:48; Status DC Sodium Chloride 1,000 ml @ 1,000 mls/hr Q1H IV Last administered on 01/28/18at 11:31; Start 01/28/18 at 11:00; Stop 01/28/18 at 11:59; Status DC Fentanyl Citrate (Fentanyl 2ml Vial) 50 mcg 1X ONCE IV Last administered on 04/07at 11:59; Start 01/28/18 at 12:00; Stop 01/28/18 at 12:01; Status DC Iohexol (Omnipaque 300 Mg/ml) 75 ml 1X ONCE IV Last administered on 01/28/18at 12:33; Start 01/28/18 at 12:30; Stop 01/28/18 at 12:31; Status DC Insulin Glargine (Lantus) 20 units QHS SQ Last administered on 01/30/18at 21:01 ; Start 01/28/18 at 21:00 Ticagrelor (Brilinta) 90 mg BID PO Last administered on 01/31/18at 08:15; Start 01/28/18 at 21:00 Aspirin (Children'S Aspirin) 81 mg DAILYWBKFT PO Last administered on 08:15; Start 01/29/18 at 08:00 Atorvastatin Calcium (Lipitor) 80 mg QHS PO Last administered on 01/30/18at 20: 59; Start 01/28/18 at 21:00 Carvedilol (Coreg) 6.25 mg BIDWMEALS PO Last administered on 01/31/18 08:14; Start 01/28/18 at 17:00 Lactobacillus Rhamnosus (Culturelle) 1 cap BID PO Last administered on 08:15; Start 01/28/18 at 21:00 Lisinopril (Prinivil) 5 mg DAILY PO Last administered on 01/31/18 08:14; Start 01/29/18 at 09:00 Metformin HCl (Glucophage) 500 mg BIDWMEALS PO Last administered on 01/31/18 08:15; Start 01/30/18 at 17:00 Pantoprazole Sodium (Protonix) 40 mg DAILY PO Last administered on 01/31/18at 08 :15; Start 01/29/18 at 09:00 Ondansetron HCl (Zofran) 4 mg PRN Q8HRS PRN IV NAUSEA/VOMITING; Start 01/28/18 at 14:30 Info (Do NOT chart on this entry -- for MONITORING) 1 each PRN DAILY PRN MC SEE COMMENTS; Start 01/28/18 at 15:15; Stop 01/30/18 at 15:14; Status DC Sodium Chloride 1,000 ml @ 100 mls/hr Q10H IV Last administered on 01/30/18at 08:56; Start 01/28/18 at 16:00; Stop 01/30/18 at 11:05; Status DC Ceftriaxone Sodium 1 gm/ Sodium Chloride 50 ml @ 100 mls/hr Q24H IV ; Start 06/07 at 11:30; Stop 01/30/18 at 11:40; Status DC Levofloxacin/ Dextrose 100 ml @ 100 mls/hr Q24H IV Last administered on at 13:43; Start 01/30/18 at 11:30 Ceftriaxone Sodium (Rocephin) 1 gm Q24H IVP Last administered on 01/30/18at 13: 43; Start 01/30/18 at 11:45 Active Scripts Active Reported Nexium Capsule (Esomeprazole Magnesium) 40 Mg Capsule. 1 Cap PO DAILY Probiotic (Lactobacillus Acidophilus) 1 Each Capsule 1 Each PO BID LAST DOSE GIVEN: DATE: TIME: NEXT DOSE DUE: DATE: TIME: Brilinta (Ticagrelor) 90 Mg Tablet 90 Mg PO BID LAST DOSE GIVEN: DATE:TODAY TIME:MORNING NEXT DOSE DUE: DATE:TODAY TIME:BEDTIME Metformin Hcl 500 Mg Tablet 500 Mg PO BIDWMEALS LAST DOSE GIVEN: DATE:TODAY TIME:WITH BREAKFAST NEXT DOSE DUE: DATE:TODAY TIME:WITH DINNER Lisinopril 5 Mg Tablet 5 Mg PO DAILY LAST DOSE GIVEN: DATE:TODAY TIME:MORNING NEXT DOSE DUE: DATE:TOMORR TIME:MORNING Lantus Solostar (Insulin Glargine,Hum.rec.anlog) 100 Unit/1 Ml Insuln.pen 20 Unit SQ QHS LAST DOSE GIVEN: DATE: YESTER TIME: BEDTIME NEXT DOSE DUE: DATE: TIME: BEDTIME Carvedilol 6.25 Mg Tablet 1 Tab PO BID LAST DOSE GIVEN: DATE: TIME: MORNING NEXT DOSE DUE: DATE: TODAY TIME: BEDTIME Atorvastatin Calcium 80 Mg Tablet 80 Mg PO QHS LAST DOSE GIVEN: DATE: YESTER TIME: BEDTIME NEXT DOSE DUE: DATE: TODAY TIME: BEDTIME Aspir-Low (Aspirin) 81 Mg Tablet. 81 Mg PO DAILY LAST DOSE GIVEN: DATE: TIME: MORNING NEXT DOSE DUE: DATE: TOMORR TIME: MORNING Vitals/I & O Vital Sign - Last 24 Hours 01/30/18 01/30/18 01/30/18 01/30/18 10:40 15:35 17:24 20:33 Temp 98.2 98.3 97.5 Pulse 73 71 71 74 Resp 20 20 18 B/P (MAP) 150/83 (105) 154/81 (105) 154/81 157/71 (99) Pulse Ox 94 93 97 O2 Delivery Room Air 01/31/18 01/31/18 01/31/18 01/31/18 00:01 05:47 08:14 08:14 Temp 99.5 Pulse 73 78 78 78 Resp 18 18 B/P (MAP) 166/84 (111) 152/84 (106) 152/84 152/84 Pulse Ox 95 94 O2 Delivery Room Air Room Air Intake and Output 01/30/18 01/30/18 01/31/18 15:00 23:00 07:00 Intake Total 618 ml 240 ml 260 ml Balance 618 ml 240 ml 260 ml NICOLAS ETIENNE COMP[employer] CAREGIVER Jan 31, 2018 09:10
[2018-01-31 10:45] VITALS: BP 161/53
[2018-01-31] MEDS: cefTRIAXone IV Push 1 GM VIAL. IVP SCH (12:40)
[2018-01-31] MEDS ORDERED: LEVO500T59 PO (14:56)
[2018-01-31 15:03] VITALS: BP 141/85
--- NOTE | 2018-01-31 20:18 | DS ---
DATE OF DISCHARGE: 01/31/2018 HOSPITAL COURSE: A 67-year-old gentleman in with multiple medical problems, was having some chest pain. The patient has been seen by Cardiology. He also had some nausea, no vomiting. We will get echo report and probable discharge to follow up with his field contact person as an outpatient. He has had a history of coronary artery disease, stent placement, and the like. His nausea and vomiting seems to have resolved and in turn, patient's white count came down into normal range as well as control of his blood sugars. The patient made good work during the rest of his hospitalization and I have a repeat of his CT scan of his chest for questionable infectious and inflammatory nodule in the left lower lobe, complicated renal cyst. The patient will be monitored carefully, make further evaluation on him as an outpatient. He was also kept on IV antibiotic therapy and made good progress with those otherwise. IMPRESSION: Nausea, vomiting, abdominal pain, chest pain. The patient will be monitored carefully. Follow up as an outpatient, make further evaluation on him as indicated. Follow up also acute on top of chronic pancreatitis. RAFAEL PARRA MD DR: SKIP/vidya JOB#: [id number] / [id number]
== END 2018-01-31 15:28 | disposition home health service (06) | DRG 871 ==
LOC: ER 10:34 → 1 SOUTH 13:48
PROVIDERS: ADMIT Family Medicine; ATTEND Family Medicine
DX: A41.9 Sepsis, unspecified organism (principal); K85.90 Acute pancreatitis without necrosis or infection, unspecified; K86.1 Other chronic pancreatitis; E11.9 Type 2 diabetes mellitus without complications; E78.00 Pure hypercholesterolemia, unspecified; H91.92 Unspecified hearing loss, left ear; I10 Essential (primary) hypertension; I25.10 Atherosclerotic heart disease of native coronary artery without angina pectoris; E66.9 Obesity, unspecified; I25.2 Old myocardial infarction; M19.90 Unspecified osteoarthritis, unspecified site; K57.30 Diverticulosis of large intestine without perforation or abscess without bleeding; N28.1 Cyst of kidney, acquired; N32.3 Diverticulum of bladder; Z83.3 Family history of diabetes mellitus; Z87.440 Personal history of urinary (tract) infections; Z90.49 Acquired absence of other specified parts of digestive tract; Z95.5 Presence of coronary angioplasty implant and graft; Z68.29 Body mass index [BMI] 29.0-29.9, adult
CPT/HCPCS: 36415; 71046; 74022; 74177; 80048; 80053; 80061; 81001; 82553; 82947; 83605; 83690; 84484; 85025; 85379; 93005; 96361; 96374; J0696; J1815; J1956; J3010; Q9967; 99285-25; J7030

== ENCOUNTER 2018-02-14 12:53 | Observation (INO) | payer BC, MEDICARE ==
[~2018-02-14] VITALS: Ht 180.3 cm; Wt 96.6 kg
[~2018-02-14 12:53] MED LIST changes: +CEFT1VIA13 IVP; -CEFT1VIA6 IVP; +ESOM40CA PO; +METF500T16 PO; -METF500T5 PO
[2018-02-14 13:38] LABS: BASO # 0.1 x10^3/uL (0.0-0.2); BASO % 1 % (0-3); EOS # 0.5 x10^3/uL (0.0-0.7); EOS % 5 % (0-3); HEMATOCRIT 35.8 % (39.0-53.0); HEMOGLOBIN 12.6 g/dL (13.0-17.5); LYMPH # 1.8 x10^3/uL (1.0-4.8); LYMPH % 18 % (24-48); MEAN CORPUSCULAR HEMOGLOBIN 33 pg (25-35); MEAN CORPUSCULAR HGB CONC 35 g/dL (31-37); MEAN CORPUSCULAR VOLUME 93 fL (79-100); MONO # 0.7 x10^3/uL (0.0-1.1); MONO % 7 % (0-9); NEUT % 69 % (31-73); PLATELET COUNT 268 x10^3/uL (140-400); RED BLOOD COUNT 3.87 x10^6/uL (4.30-5.70); RED CELL DISTRIBUTION WIDTH 13.3 % (11.5-14.5); WHITE BLOOD COUNT 10.2 x10^3/uL (4.0-11.0)
[2018-02-14 13:52] LABS: ALBUMIN 3.6 g/dL (3.4-5.0); CALCIUM 9.4 mg/dL (8.5-10.1); CREATININE 1.1 mg/dL (0.7-1.3); GFR 67.2; POTASSIUM 4.3 mmol/L (3.5-5.1); TOTAL BILIRUBIN 0.5 mg/dL (0.2-1.0); TOTAL PROTEIN 7.1 g/dL (6.4-8.2)
[2018-02-14] MEDS ORDERED: ONDANSETRON PF 4 MG/2 ML VIAL. IV ONE (14:00)
[2018-02-14] MEDS ORDERED: IV NORMAL SALINE 1,000ML 1,000 ML IV SCH (14:00)
--- NOTE | 2018-02-14 15:00 | PHYS DOC ---
Past History Past Medical History: Diverticulitis, Diabetes, GI Bleed, Hypertension, [place] Past Surgical History: Cholecystectomy Alcohol Use: None Drug Use: None Adult General Chief Complaint Chief Complaint: nausea and vomiting, dizziness and weakness [facility] Patient is a 67 year old male who presents with complaining of nausea and vomiting and generalized weakness. Patient has had multiple medical problems and frequent emergency room and had 3 episodes of vomiting with constant nausea without abdominal pain or diarrhea since this morning and was weak and dizzy and his decided to bring him to emergency room. Patient denies chest pain, shortness of breath, focal neuro deficit, fever and chills. Review of Systems Review of Systems Constitutional: Denies fever or chills [] Eyes: Denies change in visual acuity, redness, or eye pain [] HENT: Denies nasal congestion or sore throat [] Respiratory: Denies cough or shortness of breath [] Cardiovascular: No additional information not addressed in HPI [] GI: Denies abdominal pain, bloody stools or diarrhea, reports nausea and vomiting [] : Denies dysuria or hematuria [] Musculoskeletal: Denies back pain or joint pain [] Integument: Denies rash or skin lesions [] Neurologic: Denies headache, focal weakness or sensory changes [] Endocrine: Denies polyuria or polydipsia [] All other systems were reviewed and found to be within normal limits, except as documented in this note. Current Medications Current Medications Current Medications Medications (Trade) Dose Ordered Sig/Jelani Start Time Stop Time Status Last Admin Dose Admin Ondansetron HCl (Zofran) 4 mg 1X ONCE 02/14/18 14:00 02/14/18 14:01 DC 02/14/18 13:38 4 MG Sodium Chloride 1,000 ml @ 100 mls/hr Q10H 02/14/18 14:55 02/15/18 14:54 UNV Allergies Allergies Allergies Coded Allergies Type Severity Reaction Last Updated Verified No Known Drug Allergies 10/05/17 No Physical Exam Physical Exam Constitutional: Mild distress, non-toxic appearance. [] HENT: Normocephalic, atraumatic, oropharynx dry, no oral exudates, nose normal. [] Eyes: PERRLA, EOMI, conjunctiva normal, no discharge. [] Neck: Normal range of motion, no tenderness, supple, no stridor. [] Cardiovascular:Heart rate regular rhythm, no murmur [] Lungs & Thorax: Bilateral breath sounds clear to auscultation [] Abdomen: Bowel sounds normal, soft, no tenderness, no masses, no pulsatile masses. [] Skin: Warm, dry, no erythema, no rash. [] Back: No tenderness, no CVA tenderness. [] Extremities: No tenderness, no cyanosis, no clubbing, ROM intact, no edema. [] Neurologic: Alert and oriented , normal motor function, normal sensory function , no focal deficits noted. [] Current Patient Data Vital Signs Vital Signs Date Time Temp Pulse Resp B/P (MAP) Pulse Ox O2 Delivery O2 Flow Rate FiO2 02/14/18 12:53 97.9 77 20 96 Room Air Lab Results Laboratory Tests Test 02/14/18 13:25 White Blood Count 10.2 x10^3/uL (4.0-11.0) Red Blood Count 3.87 x10^6/uL (4.30-5.70) L Hemoglobin 12.6 g/dL (13.0-17.5) L Hematocrit 35.8 % (39.0-53.0) L Mean Corpuscular Volume 93 fL (79-100) Mean Corpuscular Hemoglobin 33 pg (25-35) Mean Corpuscular Hemoglobin Concent 35 g/dL (31-37) Red Cell Distribution Width 13.3 % (11.5-14.5) Platelet Count 268 x10^3/uL (140-400) Neutrophils (%) (Auto) 69 % (31-73) Lymphocytes (%) (Auto) 18 % (24-48) L Monocytes (%) (Auto) 7 % (0-9) Eosinophils (%) (Auto) 5 % (0-3) H Basophils (%) (Auto) 1 % (0-3) Neutrophils # (Auto) 7.0 x10^3uL (1.8-7.7) Lymphocytes # (Auto) 1.8 x10^3/uL (1.0-4.8) Monocytes # (Auto) 0.7 x10^3/uL (0.0-1.1) Eosinophils # (Auto) 0.5 x10^3/uL (0.0-0.7) Basophils # (Auto) 0.1 x10^3/uL (0.0-0.2) Sodium Level 139 mmol/L (136-145) Potassium Level 4.3 mmol/L (3.5-5.1) Chloride Level 104 mmol/L (98-107) Carbon Dioxide Level 27 mmol/L (21-32) Anion Gap 8 (6-14) Blood Urea Nitrogen 16 mg/dL (8-26) Creatinine 1.1 mg/dL (0.7-1.3) Estimated GFR (Cockcroft-Gault) 67.2 BUN/Creatinine Ratio 15 (6-20) Glucose Level 145 mg/dL (70-99) H Calcium Level 9.4 mg/dL (8.5-10.1) Total Bilirubin 0.5 mg/dL (0.2-1.0) Aspartate Amino Transferase (AST) 16 U/L (15-37) Alanine Aminotransferase (ALT) 21 U/L (16-63) Alkaline Phosphatase 135 U/L (46-116) H Troponin I Quantitative < 0.017 ng/mL (0-0.055) Total Protein 7.1 g/dL (6.4-8.2) Albumin 3.6 g/dL (3.4-5.0) Albumin/Globulin Ratio 1.0 (1.0-1.7) Lipase 155 U/L (73-393) EKG EKG EKG interpreted by me. EKG at 1358 showed normal sinus rhythm at rate of 65, nonspecific ST and T-wave abnormalities, no acute distress and T wave abnormality[] Radiology/Procedures Radiology/Procedures [] Course & Med Decision Making Course & Med Decision Making Pertinent Labs reviewed. (See chart for details) Evolution of patient in ER showed 67-year-old male patient with multiple medical problem and frequent emergency room visits brought in because of nausea and vomiting and generalized weakness since this morning. Patient had a stable vital signs with dry oral mucosa. Patient did not have episodes of vomiting while he was in ER. Dr. Villa accepted admission at 1455. [] Dragon Disclaimer Dragon Disclaimer This electronic medical record was generated, in whole or in part, using a voice recognition dictation system. Departure Departure: Impression: Primary Impression: Nausea and vomiting Additional Impressions: Generalized weakness Diabetes mellitus Disposition: 09 ADMITTED INPATIENT (at 1455) Admitting Physician: Drake Villa Condition: IMPROVED Referrals: DRAKE VILLA MD (PCP) Scripts Ondansetron (ZOFRAN ODT) 4 Mg Tab.rapdis 1 TAB SL Q8HRS, #15 TAB 1 Refill Prov: DRAKE VILLA MD 02/15/18 Levofloxacin (LEVAQUIN) 500 Mg Tablet 500 MG PO DAILY for 4 Days, #4 TAB Prov: DARKE VILLA MD 02/15/18 Problem Qualifiers SAL ROD MD Feb 14, 2018 15:00
--- NOTE | 2018-02-14 16:07 | EKG ---
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
[2018-02-14 16:22] LABS: BACTERIA,URINE 0 /HPF (0-FEW); BILIRUBIN,URINE NEG (NEG); CLARITY,URINE CLEAR; COLOR,URINE YELLOW; GLUCOSE,URINE NEG (NEG); NITRITE,URINE NEG (NEG); RBC,URINE 0 /HPF (0-2); SQUAMOUS EPITHELIAL CELL,UR OCC /LPF; UROBILINOGEN,URINE 0.2 mg/dL (0.2 mg/dL); WBC,URINE 0 /HPF (0-4)
[2018-02-14 16:39] LABS: BARBITURATES NEG (NEG); BENZODIAZEPINES NEG (NEG); CANNABINOIDS NEG (NEG); COCAINE NEG (NEG); METHADONE NEG (NEG); OPIATES NEG (NEG); PHENCYCLIDINE NEG (NEG)
[2018-02-14 16:40] LABS: AMPHETAMINE/METHAMPHETAMINE NEG (NEG)
[2018-02-14] MEDS: IV NORMAL SALINE 1,000ML 1,000 ML IV SCH ×2 (16:44→20:25)
[2018-02-14 17:09] VITALS: BP 153/80
[2018-02-14] MEDS: CARVEDILOL 6.25 MG TABLET PO SCH (18:00)
--- NOTE | 2018-02-14 19:28 | NUR ---
NURSING ADMIT NOTE: Patient admitted to room 122 via cart and accompanied by EMS personnel and his . Patient oriented to room, bathroom, lights, bed controls, and TV control.
[2018-02-14 19:59] VITALS: BP 156/82
[2018-02-14] MEDS: TICAGRELOR 90 MG TABLET. PO SCH (20:24)
[2018-02-14] MEDS: LACTOBACILLUS RHAMNOSUS GG 1 CAPSULE. PO SCH (20:24)
[2018-02-14] MEDS ORDERED: ATORVASTATIN CALCIUM 20 MG TABLET PO SCH (21:00)
[2018-02-14] MEDS ORDERED: INSULIN GLARGINE 300 UNITS/3 ML INSULN.PEN. SQ SCH (21:00)
[2018-02-14 23:05] VITALS: BP 131/59
[2018-02-15 05:32] VITALS: BP 141/70
[2018-02-15] MEDS ORDERED: levoFLOXacin 500 MG TABLET PO SCH (06:00)
[2018-02-15] MEDS: IV NORMAL SALINE 1,000ML 1,000 ML IV SCH (06:41)
[2018-02-15] MEDS ORDERED: metFORMIN 500 MG TABLET PO SCH (08:00)
[2018-02-15] MEDS: LACTOBACILLUS RHAMNOSUS GG 1 CAPSULE. PO SCH (08:59)
[2018-02-15] MEDS: TICAGRELOR 90 MG TABLET. PO SCH (08:59)
[2018-02-15] MEDS ORDERED: PANTOPRAZOLE 40 MG TABLET. PO SCH (09:00)
[2018-02-15] MEDS ORDERED: ASPIRIN ENTERIC COATED 81 MG TABLET.DR. PO SCH (09:00)
[2018-02-15] MEDS: CARVEDILOL 6.25 MG TABLET PO SCH (09:00)
[2018-02-15] MEDS ORDERED: LISINOPRIL 5 MG TABLET. PO SCH (09:00)
--- NOTE | 2018-02-15 09:01 | RAD ---
2 view abdomen dated 02/15/2018. Comparison made to 01/28/2018. Clinical indication: Pain. Nausea vomiting. FINDINGS: Flat and upright views were obtained. There are nondilated gas-filled loops of bowel throughout. No abnormal calcification. No air-fluid level or pneumoperitoneum on the upright view. Clips in the right upper quadrant compatible with prior cholecystectomy. Small to moderate amount stool throughout the colon. IMPRESSION: Nonobstructive bowel gas pattern. Electronically signed by: Rome Cheung MD (02/15/2018 8:58 AM) [id number]
[2018-02-15 10:45] VITALS: BP 165/75
[2018-02-15 14:39] VITALS: BP 163/81
[2018-02-15] MEDS ORDERED: ONDA4TAB10 SL (14:42)
[2018-02-15] MEDS ORDERED: LEVO500T59 PO (14:42)
--- NOTE | 2018-02-15 16:14 | NUR ---
Pt left unit in stable condition via ambulation accompanied by this nurse and pt spouse. Pt given discharge, follow up, and medication instructions, verbal understanding of instructions received from pt by this nurse.
== END 2018-02-15 15:20 | disposition home or self-care (01) ==
LOC: ER 12:53 → INTOOBSV 16:17 → 1 SOUTH 16:17
PROVIDERS: ADMIT Family Medicine; ATTEND Family Medicine
DX: H91.8X3 Other specified hearing loss, bilateral (principal); G25.81 Restless legs syndrome; R07.89 Other chest pain; E11.9 Type 2 diabetes mellitus without complications; I10 Essential (primary) hypertension; E78.00 Pure hypercholesterolemia, unspecified
CPT/HCPCS: 36415; 74021; 80053; 80307; 81001; 82947; 83690; 84484; 85025; 93005; 96361; 96372; 96374; 99285; G0378; J1815; J2405; 96360; G0379; G0479; J7030

== ENCOUNTER 2018-04-13 11:16 | Emergency (ER) | payer BC ==
[~2018-04-13] VITALS: Ht 177.8 cm; Wt 95.3 kg
[~2018-04-13 11:16] MED LIST changes: +ONDA4TAB10 SL
[2018-04-13] MEDS ORDERED: IV NORMAL SALINE 1,000ML 1,000 ML IV ONE ×2 (11:30→14:45)
--- NOTE | 2018-04-13 11:34 | ED.ADGEN ---
Past History Past Medical History: Diverticulitis, Diabetes, GI Bleed, Hypertension, [place] Past Surgical History: Cholecystectomy Alcohol Use: None Drug Use: None Adult General Chief Complaint Chief Complaint Nausea and vomiting HPI HPI Patient is a 67-year-old with history of recurrent nausea and vomiting requiring esophageal dilatation who presents with acute onset nausea with vomiting this morning. Patient's vomited multiple times prior to ED arrival. No fevers chills, chest pain, shortness of breath. Denies abdominal pain. Denies dizziness or lightheadedness. Patient diabetic does not check his area this morning. No urinary frequency urgency. No constipation or diarrhea. No other acute symptoms or complaints.[] Review of Systems Review of Systems Review symptoms as per history of present illness. All other review symptoms are negative.] All other systems were reviewed and found to be within normal limits, except as documented in this note. Current Medications Current Medications Current Medications Medications (Trade) Dose Ordered Sig/Jelani Start Time Stop Time Status Last Admin Dose Admin Famotidine (Pepcid Vial) 20 mg STK-MED ONCE 04/13/18 11:41 04/13/18 11:42 DC Ondansetron HCl (Zofran) 4 mg STK-MED ONCE 04/13/18 11:40 04/13/18 11:41 DC Sodium Chloride 1,000 ml @ 1,000 mls/hr 1X ONCE 04/13/18 14:45 04/13/18 15:44 DC 04/13/18 14:47 1,000 MLS/HR Allergies Allergies Allergies Coded Allergies Type Severity Reaction Last Updated Verified No Known Drug Allergies 10/05/17 No Physical Exam Physical Exam Constitutional: Well developed, well nourished, no acute distress, non-toxic appearance. [] HENT: Normocephalic, atraumatic, bilateral external ears normal, oropharynx moist, no oral exudates, nose normal. [] Eyes: PERRLA, EOMI, conjunctiva normal. [] Neck: Normal range of motion, no tenderness. [] Cardiovascular:Heart rate regular rhythm, no murmur [] Lungs & Thorax: Bilateral breath sounds clear to auscultation. [] Abdomen: Nondistended, increased bowel sounds[] Skin: Warm, dry, no erythema, no rash. [] Back: No tenderness. [] Extremities: No tenderness. [] Neurologic: Alert and oriented X 3, normal motor function, normal sensory function, no focal deficits noted. [] Psychologic: Affect normal. [] Current Patient Data Vital Signs Vital Signs Date Time Temp Pulse Resp B/P (MAP) Pulse Ox O2 Delivery O2 Flow Rate FiO2 04/13/18 16:00 80 16 128/79 (95) 96 Room Air 04/13/18 11:26 98.2 Lab Results Laboratory Tests Test 04/13/18 11:48 04/13/18 14:05 White Blood Count 12.5 x10^3/uL (4.0-11.0) H Red Blood Count 4.27 x10^6/uL (4.30-5.70) L Hemoglobin 13.2 g/dL (13.0-17.5) Hematocrit 38.3 % (39.0-53.0) L Mean Corpuscular Volume 90 fL (79-100) Mean Corpuscular Hemoglobin 31 pg (25-35) Mean Corpuscular Hemoglobin Concent 35 g/dL (31-37) Red Cell Distribution Width 14.0 % (11.5-14.5) Platelet Count 268 x10^3/uL (140-400) Neutrophils (%) (Auto) 77 % (31-73) H Lymphocytes (%) (Auto) 14 % (24-48) L Monocytes (%) (Auto) 6 % (0-9) Eosinophils (%) (Auto) 3 % (0-3) Basophils (%) (Auto) 1 % (0-3) Neutrophils # (Auto) 9.6 x10^3uL (1.8-7.7) H Lymphocytes # (Auto) 1.7 x10^3/uL (1.0-4.8) Monocytes # (Auto) 0.8 x10^3/uL (0.0-1.1) Eosinophils # (Auto) 0.4 x10^3/uL (0.0-0.7) Basophils # (Auto) 0.1 x10^3/uL (0.0-0.2) Sodium Level 142 mmol/L (136-145) Potassium Level 4.0 mmol/L (3.5-5.1) Chloride Level 104 mmol/L (98-107) Carbon Dioxide Level 30 mmol/L (21-32) Anion Gap 8 (6-14) Blood Urea Nitrogen 14 mg/dL (8-26) Creatinine 1.1 mg/dL (0.7-1.3) Estimated GFR (Cockcroft-Gault) 67.2 BUN/Creatinine Ratio 13 (6-20) Glucose Level 177 mg/dL (70-99) H Calcium Level 9.0 mg/dL (8.5-10.1) Total Bilirubin 0.4 mg/dL (0.2-1.0) Aspartate Amino Transferase (AST) 18 U/L (15-37) Alanine Aminotransferase (ALT) 30 U/L (16-63) Alkaline Phosphatase 149 U/L (46-116) H Troponin I Quantitative < 0.017 ng/mL (0-0.055) Total Protein 7.2 g/dL (6.4-8.2) Albumin 4.0 g/dL (3.4-5.0) Albumin/Globulin Ratio 1.3 (1.0-1.7) Lipase 169 U/L (73-393) Urine Collection Type Unknown Urine Color Yellow Urine Clarity Clear Urine pH 5.5 Urine Specific [place] 1.015 Urine Protein Neg (NEG-TRACE) Urine Glucose (UA) Neg mg/dL (NEG) Urine Ketones (Stick) Neg mg/dL (NEG) Urine Blood Neg (NEG) Urine Nitrite Neg (NEG) Urine Bilirubin Neg (NEG) Urine Urobilinogen Dipstick 0.2 mg/dL (0.2 mg/dL) Urine Leukocyte Esterase Neg (NEG) Urine RBC Rare /HPF (0-2) Urine WBC 0 /HPF (0-4) Urine Squamous Epithelial Cells Occ /LPF Urine Bacteria 0 /HPF (0-FEW) Urine Mucus Mod /LPF EKG EKG [KG: Reviewed] Radiology/Procedures Radiology/Procedures [EKG: Reviewed] Course & Med Decision Making Course & Med Decision Making Pertinent Labs and Imaging studies reviewed. (See chart for details) [Abdomen soft, nontender and repeat exam. Patient's nausea, symptoms resolved and is able to tolerate fluids he prior to departure. Will continued supportive care with PCP and GI follow-up as scheduled. Return precautions reviewed. Patient verbalizes understanding agreement discharge instructions prior to departure.] Final Impression Final Impression [1. Abdominal pain 2. nausea and vomiting] Dragon Disclaimer Dragon Disclaimer This electronic medical record was generated, in whole or in part, using a voice recognition dictation system. SHERIN WARD DO Apr 13, 2018 11:34
[2018-04-13] MEDS ORDERED: ONDANSETRON PF 4 MG/2 ML VIAL. ONE (11:40)
[2018-04-13] MEDS ORDERED: FAMOTIDINE 20 MG/2 ML VIAL ONE (11:41)
--- NOTE | 2018-04-13 11:59 | RAD ---
Acute abdomen series with chest, 3 views, 04/13/2018: HISTORY: Abdominal pain and vomiting Gas is present in large and small bowel in a nonspecific pattern. No free air is seen in the abdomen. Surgical clips are present in the right upper quadrant. The spleen is at the upper limits of normal in size. Aortoiliac calcific plaquing is present. The heart size is normal. No pulmonary infiltrate is seen. There is no evidence of pleural fluid. IMPRESSION: No acute abdominal abnormality is detected. Electronically signed by: Terry Venegas MD (04/13/2018 11:56 AM) [facility]
[2018-04-13 12:00] LABS: BASO # 0.1 x10^3/uL (0.0-0.2); BASO % 1 % (0-3); EOS # 0.4 x10^3/uL (0.0-0.7); EOS % 3 % (0-3); HEMATOCRIT 38.3 % (39.0-53.0); HEMOGLOBIN 13.2 g/dL (13.0-17.5); LYMPH # 1.7 x10^3/uL (1.0-4.8); LYMPH % 14 % (24-48); MEAN CORPUSCULAR HEMOGLOBIN 31 pg (25-35); MEAN CORPUSCULAR HGB CONC 35 g/dL (31-37); MEAN CORPUSCULAR VOLUME 90 fL (79-100); MONO # 0.8 x10^3/uL (0.0-1.1); MONO % 6 % (0-9); NEUT # 9.6 x10^3uL (1.8-7.7); NEUT % 77 % (31-73); PLATELET COUNT 268 x10^3/uL (140-400); RED BLOOD COUNT 4.27 x10^6/uL (4.30-5.70); WHITE BLOOD COUNT 12.5 x10^3/uL (4.0-11.0)
[2018-04-13] MEDS ORDERED: ONDANSETRON PF 4 MG/2 ML VIAL. IV ONE (12:10)
[2018-04-13] MEDS ORDERED: FAMOTIDINE 20 MG/2 ML VIAL IVP ONE (12:10)
--- NOTE | 2018-04-13 12:13 | EKG ---
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
[2018-04-13 12:14] LABS: ALBUMIN/GLOBULIN RATIO 1.3 (1.0-1.7); CREATININE 1.1 mg/dL (0.7-1.3); GFR 67.2; TOTAL BILIRUBIN 0.4 mg/dL (0.2-1.0); TOTAL PROTEIN 7.2 g/dL (6.4-8.2)
[2018-04-13 14:26] LABS: BACTERIA,URINE 0 /HPF (0-FEW); BILIRUBIN,URINE NEG (NEG); CLARITY,URINE CLEAR; COLOR,URINE YELLOW; GLUCOSE,URINE NEG (NEG); NITRITE,URINE NEG (NEG); RBC,URINE RARE /HPF (0-2); SQUAMOUS EPITHELIAL CELL,UR OCC /LPF; UROBILINOGEN,URINE 0.2 mg/dL (0.2 mg/dL); WBC,URINE 0 /HPF (0-4)
[2018-04-13 16:00] VITALS: BP 128/79
[2018-04-13] MEDS ORDERED: ONDA4TAB10 SL (16:03)
== END 2018-04-13 16:34 | disposition home or self-care (01) ==
LOC: ER 11:16
DX: R11.2 Nausea with vomiting, unspecified (principal); R14.0 Abdominal distension (gaseous); E11.9 Type 2 diabetes mellitus without complications; I10 Essential (primary) hypertension; I25.2 Old myocardial infarction; Z90.49 Acquired absence of other specified parts of digestive tract
CPT/HCPCS: 36415; 74022; 80053; 81001; 83690; 84484; 85025; 93005; 96361; 96374; 96375; 99285; J2405; S0028; J7030

== ENCOUNTER 2018-04-28 10:16 | Emergency (ER) | payer BC ==
[2018-04-28 11:15] LABS: BASO % 1 % (0-3); EOS # 0.4 x10^3/uL (0.0-0.7); EOS % 5 % (0-3); HEMOGLOBIN 12.7 g/dL (13.0-17.5); LYMPH # 1.4 x10^3/uL (1.0-4.8); LYMPH % 19 % (24-48); MEAN CORPUSCULAR HEMOGLOBIN 31 pg (25-35); MEAN CORPUSCULAR HGB CONC 33 g/dL (31-37); MEAN CORPUSCULAR VOLUME 91 fL (79-100); MONO # 0.6 x10^3/uL (0.0-1.1); MONO % 8 % (0-9); NEUT % 68 % (31-73); PLATELET COUNT 245 x10^3/uL (140-400); RED BLOOD COUNT 4.16 x10^6/uL (4.30-5.70); RED CELL DISTRIBUTION WIDTH 14.9 % (11.5-14.5); WHITE BLOOD COUNT 7.4 x10^3/uL (4.0-11.0)
[2018-04-28] MEDS ORDERED: IV NORMAL SALINE 1,000ML 1,000 ML IV ONE (11:15)
[2018-04-28] MEDS ORDERED: ONDANSETRON PF 4 MG/2 ML VIAL. IV ONE (11:15)
--- NOTE | 2018-04-28 11:17 | PHYS DOC ---
Past History Past Medical History: Diverticulitis, Diabetes, GI Bleed, Hypertension, [place] Past Surgical History: Cholecystectomy, Other Alcohol Use: None Drug Use: None Adult General Chief Complaint Chief Complaint: NAUSEA/VOMITING/DIARRHEA HPI HPI 67-year-old male presents with vomiting. He had vomiting around 8-9 AM. He had a single episode that lasted about half an hour. The patient took an ODT Zofran at the time and has had no further vomiting. The patient came to the emergency room because he was comes emergency room when he has vomiting. He recently saw specialist who did an EGD. The paperwork states that he should call that specialist if he has symptoms such as vomiting. They did not call the specialist. Patient states feeling no nausea at this time. He states he is slightly "lightheaded". He denies fever or chills. He has no other complaints. Review of Systems Review of Systems Constitutional: Denies fever or chills [] Eyes: Denies change in visual acuity, redness, or eye pain [] HENT: Denies nasal congestion or sore throat [] Respiratory: Denies cough or shortness of breath [] Cardiovascular: No additional information not addressed in HPI [] GI: Vomiting[] : Denies dysuria or hematuria [] Musculoskeletal: Denies back pain or joint pain [] Integument: Denies rash or skin lesions [] Neurologic: Denies headache, focal weakness or sensory changes [] Endocrine: Denies polyuria or polydipsia [] All other systems were reviewed and found to be within normal limits, except as documented in this note. Current Medications Current Medications Current Medications Medications (Trade) Dose Ordered Sig/[facility] Start Time Stop Time Status Last Admin Dose Admin Ondansetron HCl (Zofran) 4 mg 1X ONCE 04/28/18 11:15 04/28/18 11:16 Sodium Chloride 1,000 ml @ 1,000 mls/hr 1X ONCE 04/28/18 11:15 04/28/18 12:14 Allergies Allergies Allergies Coded Allergies Type Severity Reaction Last Updated Verified No Known Drug Allergies 10/05/17 No Physical Exam Physical Exam Constitutional: Well developed, well nourished, no acute distress, non-toxic appearance. [] HENT: Normocephalic, atraumatic, bilateral external ears normal, oropharynx moist, no oral exudates, nose normal. [] Eyes: PERRLA, EOMI, conjunctiva normal, no discharge. [] Neck: Normal range of motion, no tenderness, supple, no stridor. [] Cardiovascular:Heart rate regular rhythm, no murmur [] Lungs & Thorax: Bilateral breath sounds clear to auscultation [] Abdomen: Bowel sounds normal, soft, no tenderness, no masses, no pulsatile masses. [] Skin: Warm, dry, no erythema, no rash. [] Back: No tenderness, no CVA tenderness. [] Extremities: No tenderness, no cyanosis, no clubbing, ROM intact, no edema. [] Neurologic: Alert and oriented X 3, normal motor function, normal sensory function, no focal deficits noted. [] Psychologic: Affect normal, judgement normal, mood normal. [] Current Patient Data Vital Signs Vital Signs Date Time Temp Pulse Resp B/P (MAP) Pulse Ox O2 Delivery O2 Flow Rate FiO2 04/28/18 10:54 97.9 75 22 95 Room Air EKG EKG [] Radiology/Procedures Radiology/Procedures [] Course & Med Decision Making Course & Med Decision Making Pertinent Labs and Imaging studies reviewed. (See chart for details) The patient was given 4mg Zofran IV and 1L normal saline. He was feeling much better. He did no further vomiting in the emergency room. His labs are unremarkable. I told the patient that his specialist has requested that he call him first before other medical care. Patient stated verbal understanding of illness. He is stable for discharge at this time. [] Dragon Disclaimer Dragon Disclaimer This electronic medical record was generated, in whole or in part, using a voice recognition dictation system. Departure Departure: Referrals: RAFAEL PARRA MD (PCP) SHERIN LLAMAS DO Apr 28, 2018 11:17
[2018-04-28 11:22] LABS: ALBUMIN 3.7 g/dL (3.4-5.0); ALBUMIN/GLOBULIN RATIO 1.1 (1.0-1.7); CREATININE 1.1 mg/dL (0.7-1.3); GFR 67.2; POTASSIUM 3.6 mmol/L (3.5-5.1); TOTAL BILIRUBIN 0.6 mg/dL (0.2-1.0)
[2018-04-28 12:06] VITALS: BP 160/84
== END 2018-04-28 12:00 | disposition home or self-care (01) ==
LOC: ER 10:16
DX: R11.11 Vomiting without nausea (principal); R42 Dizziness and giddiness; E11.9 Type 2 diabetes mellitus without complications; I10 Essential (primary) hypertension; I25.2 Old myocardial infarction
CPT/HCPCS: 36415; 80053; 85025; 96361; 96374; 99284; J2405; J7030

== ENCOUNTER 2018-09-24 17:12 | Emergency (ER) | payer BC ==
[~2018-09-24] VITALS: Ht 177.8 cm; Wt 103.4 kg
[~2018-09-24 17:12] MED LIST changes: -CARV6.252 PO; +CARV6.2541 PO; +METR-34 PO; -METR500T8 PO
--- NOTE | 2018-09-24 17:50 | PHYS DOC ---
Past History Past Medical History: Diverticulitis, Diabetes, GI Bleed, Hypertension, [place] Past Surgical History: Cholecystectomy, Other Alcohol Use: None Drug Use: None Adult General Chief Complaint Chief Complaint: NAUSEA/VOMITING/DIARRHEA HPI HPI 68-year-old male presents with vomiting. The patient began to vomit around 1400. He has had at least 4 episodes. He was feeling well prior to this. He was helping his fell in the yard this morning. The patient tried to drink some fluids and rest, but continued to have vomiting. They're concerned about dehydration. Patient denies chest pain, fever, shortness of breath. His who accompanies him is not feeling ill in any way. Review of Systems Review of Systems Constitutional: Denies fever or chills [] Eyes: Denies change in visual acuity, redness, or eye pain [] HENT: Denies nasal congestion or sore throat [] Respiratory: Denies cough or shortness of breath [] Cardiovascular: No additional information not addressed in HPI [] GI: Nausea, vomiting. Denies abdominal pain. [] : Denies dysuria or hematuria [] Musculoskeletal: Denies back pain or joint pain [] Integument: Denies rash or skin lesions [] Neurologic: Denies headache, focal weakness or sensory changes [] Endocrine: Denies polyuria or polydipsia [] All other systems were reviewed and found to be within normal limits, except as documented in this note. Current Medications Current Medications Current Medications Medications (Trade) Dose Ordered Sig/Jelani Start Time Stop Time Status Last Admin Dose Admin Ondansetron HCl (Zofran) 4 mg 1X ONCE 09/24/18 17:30 09/24/18 17:31 DC Sodium Chloride 1,000 ml @ 1,000 mls/hr 1X ONCE 09/24/18 17:30 09/24/18 18:29 Allergies Allergies Allergies Coded Allergies Type Severity Reaction Last Updated Verified No Known Drug Allergies 10/05/17 No Physical Exam Physical Exam Constitutional: Well developed, obese, well nourished, no acute distress, non- toxic appearance. [] HENT: Normocephalic, atraumatic, bilateral external ears normal, oropharynx moist, no oral exudates, nose normal. [] Eyes: PERRLA, EOMI, conjunctiva normal, no discharge. [] Neck: Normal range of motion, no tenderness, supple, no stridor. [] Cardiovascular:Heart rate regular rhythm, no murmur [] Lungs & Thorax: Bilateral breath sounds with mild expiratory wheeze throughout. [] Abdomen: Bowel sounds normal, soft, no tenderness, no masses, no pulsatile masses. [] Skin: Warm, dry, no erythema, no rash. [] Back: No tenderness, no CVA tenderness. [] Extremities: No tenderness, no cyanosis, no clubbing, ROM intact, no edema. [] Neurologic: Alert and oriented X 3, normal motor function, normal sensory function, no focal deficits noted. [] Psychologic: Affect normal, judgement normal, mood normal. [] Current Patient Data Lab Results Laboratory Tests Test 09/24/18 17:26 Glucose (Fingerstick) 146 mg/dL (70-99) H EKG EKG Sinus rhythm, rate 83, normal axis, no ST elevations or depressions.[] Radiology/Procedures Radiology/Procedures [] Course & Med Decision Making Course & Med Decision Making Pertinent Labs and Imaging studies reviewed. (See chart for details) I ordered labs and chest pain workup due to the patient's cardiac history. We have given 1 L normal saline and 4 mg of Zofran IV. His EKG is unremarkable. The rest of the patient's workup is pending. I'm signing the patient out to Dr. Dolan at 1800. [] Dragon Disclaimer Dragon Disclaimer This electronic medical record was generated, in whole or in part, using a voice recognition dictation system. Departure Departure: Impression: Primary Impression: Vomiting Referrals: RAFAEL PARRA MD (PCP) Problem Qualifiers Primary Impression: Vomiting Vomiting type: unspecified Vomiting Intractability: non-intractable Nausea presence: with nausea Qualified Codes: R11.2 - Nausea with vomiting, unspecified SHERIN LLAMAS DO Sep 24, 2018 17:50
[2018-09-24 17:53] LABS: BASO # 0.1 x10^3/uL (0.0-0.2); BASO % 1 % (0-3); EOS # 0.4 x10^3/uL (0.0-0.7); EOS % 4 % (0-3); HEMATOCRIT 36.9 % (39.0-53.0); HEMOGLOBIN 12.8 g/dL (13.0-17.5); LYMPH # 2.4 x10^3/uL (1.0-4.8); LYMPH % 22 % (24-48); MEAN CORPUSCULAR HEMOGLOBIN 32 pg (25-35); MEAN CORPUSCULAR HGB CONC 35 g/dL (31-37); MEAN CORPUSCULAR VOLUME 93 fL (79-100); MONO # 0.9 x10^3/uL (0.0-1.1); MONO % 8 % (0-9); NEUT # 7.2 x10^3uL (1.8-7.7); NEUT % 66 % (31-73); PLATELET COUNT 277 x10^3/uL (140-400); RED BLOOD COUNT 3.99 x10^6/uL (4.30-5.70); RED CELL DISTRIBUTION WIDTH 13.8 % (11.5-14.5)
[2018-09-24 18:08] LABS: ALBUMIN 3.8 g/dL (3.4-5.0); CALCIUM 9.5 mg/dL (8.5-10.1); CREATININE 1.3 mg/dL (0.7-1.3); GFR 55.2; POTASSIUM 4.7 mmol/L (3.5-5.1); TOTAL BILIRUBIN 0.3 mg/dL (0.2-1.0); TOTAL PROTEIN 7.5 g/dL (6.4-8.2)
[2018-09-24] MEDS: IPRATRPIUM/ALBUTEROL 0.5/2.5MG 3 ML NEBU. NEB ONE (18:13)
--- NOTE | 2018-09-24 18:17 | EKG ---
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
[2018-09-24] MEDS: ONDANSETRON PF 4 MG/2 ML VIAL. IV ONE (18:26)
[2018-09-24] MEDS: IV NORMAL SALINE 1,000ML 1,000 ML IV ONE (18:26)
--- NOTE | 2018-09-24 19:08 | RAD ---
AP view of the chest. Comparison: Acute abdomen series dated 01/29/2018 Indication: abd pain with vomitimg Findings: Normal lung volume. No focal airspace disease. Mild bilateral perihilar interstitial opacities. Pulmonary vascular indistinctness. No pleural effusion. No pneumothorax. The cardiomediastinal silhouette is unchanged in appearance. The great vessels are unchanged. No acute osseous abnormality. Impression: 1. No focal consolidation. 2. Very mild bilateral perihilar interstitial opacities. A mild pulmonary edema is possible. Electronically signed by: Shant Moyer MD (09/24/2018 7:05 PM) [facility]
[2018-09-24 19:56] VITALS: BP 128/59
[2018-09-24 20:22] LABS: BACTERIA,URINE 0 /HPF (0-FEW); BILIRUBIN,URINE NEG (NEG); CLARITY,URINE CLEAR; COLOR,URINE AMBER; GLUCOSE,URINE NEG (NEG); NITRITE,URINE NEG (NEG); RBC,URINE 0 /HPF (0-2); SQUAMOUS EPITHELIAL CELL,UR OCC /LPF; UROBILINOGEN,URINE 1 mg/dL (0.2 mg/dL); WBC,URINE 0 /HPF (0-4)
[2018-09-24] MEDS: MECLIZINE 12.5 MG TABLET. PO STA (20:35)
[2018-09-24] MEDS ORDERED: MECL25TA3 PO (20:40)
== END 2018-09-24 20:45 | disposition home or self-care (01) ==
LOC: ER 17:12
DX: R11.2 Nausea with vomiting, unspecified (principal); E11.9 Type 2 diabetes mellitus without complications; I10 Essential (primary) hypertension; I25.2 Old myocardial infarction
CPT/HCPCS: 36415; 71045; 80053; 81001; 82947; 83690; 83880; 84484; 85025; 93005; 94640; 96361; 96374; 99284; J2405; J7620; J8597; J7030

== ENCOUNTER 2018-10-23 16:23 | Emergency (ER) | payer BC, MEDICARE ==
[~2018-10-23] VITALS: Ht 177.8 cm; Wt 103.4 kg
[~2018-10-23 16:23] MED LIST changes: +MECL25TA3 PO
[2018-10-23 16:30] VITALS: BP 120/79
[2018-10-23] MEDS ORDERED: ONDANSETRON PF 4 MG/2 ML VIAL. ONE (16:38)
[2018-10-23] MEDS: IV NORMAL SALINE 1,000ML 1,000 ML IV SCH (16:51)
[2018-10-23] MEDS: ONDANSETRON PF 4 MG/2 ML VIAL. IV ONE (16:52)
[2018-10-23 17:02] LABS: BASO # 0.1 x10^3/uL (0.0-0.2); BASO % 1 % (0-3); EOS # 0.4 x10^3/uL (0.0-0.7); EOS % 3 % (0-3); LYMPH # 2.1 x10^3/uL (1.0-4.8); LYMPH % 20 % (24-48); MEAN CORPUSCULAR HEMOGLOBIN 32 pg (25-35); MEAN CORPUSCULAR HGB CONC 35 g/dL (31-37); MEAN CORPUSCULAR VOLUME 92 fL (79-100); MONO # 0.7 x10^3/uL (0.0-1.1); MONO % 6 % (0-9); NEUT # 7.6 x10^3uL (1.8-7.7); NEUT % 70 % (31-73); PLATELET COUNT 288 x10^3/uL (140-400); RED BLOOD COUNT 4.33 x10^6/uL (4.30-5.70); WHITE BLOOD COUNT 10.8 x10^3/uL (4.0-11.0)
--- NOTE | 2018-10-23 17:03 | PHYS DOC ---
Past History Past Medical History: Diverticulitis, Diabetes, GI Bleed, Hypertension, [place] Past Surgical History: Cholecystectomy, Other Alcohol Use: None Drug Use: None Adult General Chief Complaint Chief Complaint: FEVER HPI HPI Patient is a 68-year-old male who presents with complaint of nausea with vomiting and generalized weakness. Patient states that symptoms that started yesterday and he has not been able to keep anything down since that time to include his medications. He denies any chest pain or shortness of breath. He also denies any abdominal pain or fever. Patient states that bowel movements have been normal. Patient is a diabetic and states that his blood sugars have been very since symptoms began. Review of Systems Review of Systems Constitutional: Denies fever or chills [] Respiratory: Denies cough or shortness of breath [] Cardiovascular: No additional information not addressed in HPI [] GI: Denies abdominal pain. Complains of nausea and vomiting without diarrhea [] : Denies dysuria or hematuria [] Musculoskeletal: Denies back pain or joint pain [] All other systems were reviewed and found to be within normal limits, except as documented in this note. Current Medications Current Medications Current Medications Medications (Trade) Dose Ordered Sig/Jelani Start Time Stop Time Status Last Admin Dose Admin Ondansetron HCl (Zofran) 4 mg 1X ONCE 10/23/18 17:00 10/23/18 17:01 UNV 10/23/18 16:52 4 MG Sodium Chloride 1,000 ml @ 1,000 mls/hr Q1H 10/23/18 16:41 10/23/18 17:40 10/23/18 16:51 1,000 MLS/HR Allergies Allergies Allergies Coded Allergies Type Severity Reaction Last Updated Verified No Known Drug Allergies 10/05/17 No Physical Exam Physical Exam Constitutional: Well developed, well nourished, no acute distress, non-toxic ap pearance. [] HENT: Normocephalic, atraumatic, bilateral external ears normal, oropharynx moist, no oral exudates, nose normal. [] Eyes: PERRLA, EOMI, conjunctiva normal, no discharge. [] Neck: Normal range of motion, no tenderness, supple, no stridor. [] Cardiovascular:Heart rate regular rhythm, no murmur [] Lungs & Thorax: Bilateral breath sounds clear to auscultation [] Abdomen: Bowel sounds normal, soft, no tenderness. [] Skin: Warm, dry, no erythema, no rash. [] Extremities: No tenderness, no cyanosis, no clubbing, ROM intact, no edema. [] Neurologic: Alert and oriented X 3, no focal deficits noted. [] Current Patient Data Vital Signs Vital Signs Date Time Temp Pulse Resp B/P (MAP) Pulse Ox O2 Delivery O2 Flow Rate FiO2 10/23/18 16:30 98.1 95 20 96 Room Air EKG EKG [] Radiology/Procedures Radiology/Procedures [] Course & Med Decision Making Course & Med Decision Making Pertinent Labs and Imaging studies reviewed. (See chart for details) [] Dragon Disclaimer Dragon Disclaimer This electronic medical record was generated, in whole or in part, using a voice recognition dictation system. Departure Departure: Impression: Primary Impression: Nausea & vomiting Disposition: 01 HOME, SELF-CARE Condition: STABLE Referrals: RAFAEL PARRA MD (PCP) Patient Instructions: Nausea and Vomiting Scripts Metoclopramide Hcl (REGLAN) 10 Mg Tablet 1 TAB PO QID PRN for NAUSEA, #20 TAB Prov: BRENDA JACKSON Jr. DO 10/23/18 Problem Qualifiers Primary Impression: Nausea & vomiting Vomiting type: unspecified Vomiting Intractability: non-intractable Qualified Codes: R11.2 - Nausea with vomiting, unspecified BRENDA JACKSON Jr. DO October 23, 2018 17:03
[2018-10-23 17:12] LABS: ALBUMIN/GLOBULIN RATIO 1.2 (1.0-1.7); CALCIUM 9.3 mg/dL (8.5-10.1); CREATININE 1.3 mg/dL (0.7-1.3); GFR 55.2; POTASSIUM 4.4 mmol/L (3.5-5.1); TOTAL BILIRUBIN 0.5 mg/dL (0.2-1.0); TOTAL PROTEIN 7.4 g/dL (6.4-8.2)
[2018-10-23] MEDS ORDERED: METO10TA81 PO (17:58)
== END 2018-10-23 18:20 | disposition home or self-care (01) ==
LOC: ER 16:23
DX: R11.2 Nausea with vomiting, unspecified (principal); R53.1 Weakness; E11.9 Type 2 diabetes mellitus without complications; I10 Essential (primary) hypertension; I25.2 Old myocardial infarction; Z90.49 Acquired absence of other specified parts of digestive tract
CPT/HCPCS: 36415; 80053; 83690; 85025; 96361; 96374; J2405; 99284-25; J7030

== ENCOUNTER 2018-10-31 12:56 | Emergency (ER) | payer BC ==
[~2018-10-31 12:56] MED LIST changes: +METO10TA81 PO
[2018-10-31] MEDS ORDERED: METOCLOPRAMIDE HCL 10 MG/2 ML VIAL. IM ONE (13:30)
[2018-10-31] MEDS ORDERED: IV NORMAL SALINE 1,000ML 1,000 ML IV ONE (13:30)
--- NOTE | 2018-10-31 13:37 | PHYS DOC ---
Past History Past Medical History: Diverticulitis, Diabetes, GI Bleed, Hypertension, PR Past Surgical History: Cholecystectomy Alcohol Use: None Drug Use: None Adult General Chief Complaint Chief Complaint: NAUSEA/VOMITING/DIARRHEA HPI HPI Patient is a 68-year-old male presents with 1 episode of nausea and vomiting and dizziness today. He is feeling better now. His reports that he normally gets treated with antiemetics and fluids when this happens and his discharge. He has had multiple previous episodes of this. He has a history of calcific pancreatitis. Surgical history is significant for cholecystectomy. Patient denies alcohol use. He reports they stop smoking approximately a year ago when he had a heart attack. Today symptoms are nothing like his previous heart attack. Denies any blood in the emesis. Denies any diarrhea. Denies any recent travel. Denies any fever or chills. [] Review of Systems Review of Systems Constitutional: Denies fever or chills [] Eyes: Denies change in visual acuity, redness, or eye pain [] HENT: Denies nasal congestion or sore throat [] Respiratory: Denies cough or shortness of breath [] Cardiovascular: No chest pain or palpitations[] GI: See history of present illness[] : Denies dysuria or hematuria [] Musculoskeletal: Denies back pain or joint pain [] Integument: Denies rash or skin lesions [] Neurologic: Denies headache, focal weakness or sensory changes [] Endocrine: Denies polyuria or polydipsia [] All other systems were reviewed and found to be within normal limits, except as documented in this note. Current Medications Current Medications Current Medications Medications (Trade) Dose Ordered Sig/Jelani Start Time Stop Time Status Last Admin Dose Admin Metoclopramide HCl (Reglan Vial) 10 mg 1X ONCE 10/31/18 13:30 10/31/18 13:31 UNV Sodium Chloride 1,000 ml @ 1,000 mls/hr 1X ONCE 10/31/18 13:30 10/31/18 14:29 UNV Allergies Allergies Allergies Coded Allergies Type Severity Reaction Last Updated Verified No Known Drug Allergies 10/05/17 No Physical Exam Physical Exam Constitutional: Well developed, well nourished, no acute distress, non-toxic appearance. [] HENT: Normocephalic, atraumatic, bilateral external ears normal, oropharynx moist, no oral exudates, nose normal. [] Eyes: PERRLA, EOMI, conjunctiva normal, no discharge. [] Neck: Normal range of motion, no tenderness, supple, no stridor. [] Cardiovascular:Heart rate regular rhythm, no murmur [] Lungs & Thorax: Bilateral breath sounds clear to auscultation [] Abdomen: Bowel sounds normal, soft, no tenderness, no masses, no pulsatile masses. [] Skin: Warm, dry, no erythema, no rash. [] Back: No tenderness, no CVA tenderness. [] Extremities: No tenderness, no cyanosis, no clubbing, ROM intact, no edema. [] Neurologic: Alert and oriented X 3, normal motor function, normal sensory function, no focal deficits noted. [] Psychologic: Affect normal, judgement normal, mood normal. [] Current Patient Data Vital Signs Vital Signs Date Time Temp Pulse Resp B/P (MAP) Pulse Ox O2 Delivery O2 Flow Rate FiO2 10/31/18 13:01 98.0 97 27 96 Room Air EKG EKG [] Radiology/Procedures Radiology/Procedures [] Course & Med Decision Making Course & Med Decision Making Pertinent Labs and Imaging studies reviewed. (See chart for details) ED course: Patient arrived, was placed in bed, and tolerated exam well. He was given IV fluids and antiemetics. After this he was by mouth tolerant. Discussed findings and plan with patient and family who voiced understanding. All questions were answered. Patient was discharged in improved condition. Medical decision making: Patient is anemic but this appears to be more consistent with his usual baseline with his last visit of approximately a week ago being abnormally elevated. His BUN and creatinine are normal, no evidence of significant electrolyte abnormality, no evidence of significant dehydration. Believe the elevated white count to be just a stress reaction. Patient's lipase is normal. Patient has no pain. No evidence of oral intake intolerance. We will attempt outpatient management with antiemetics and have patient follow up with his primary care and GI team since this appears to be something that has recurred multiple times in the past 6 months[] Dragon Disclaimer Dragon Disclaimer This electronic medical record was generated, in whole or in part, using a voice recognition dictation system. Departure Departure: Impression: Primary Impression: Vomiting Disposition: HOME, SELF-CARE Condition: IMPROVED Referrals: RAFAEL PARRA MD (PCP) Follow-up in 2 days Patient Instructions: Nausea and Vomiting Additional Instructions: Drink plenty of fluids, frequent small sips. No fatty foods, no milk, and no pepper for the next 48 hours. For the next 48 hours eat a diet rich in carbohydrates with foods such as bananas, rice, applesauce, and toast. Follow-up with your regular doctor in 2 days. Return to the ER if unable to tolerate liquids, blood in the emesis, or any other concerns. Scripts Metoclopramide Hcl (REGLAN) 10 Mg Tablet 10 MG PO QID for nausea and vomiting, #30 TAB Prov: LOLI NAVAS DO 10/31/18 Problem Qualifiers Primary Impression: Vomiting Vomiting type: unspecified Vomiting Intractability: non-intractable Nausea presence: unspecified Qualified Codes: R11.10 - Vomiting, unspecified LOLI NAVAS DO October 31, 2018 13:37
[2018-10-31 13:49] LABS: BASO % 0 % (0-3); EOS # 0.2 x10^3/uL (0.0-0.7); EOS % 2 % (0-3); HEMOGLOBIN 12.9 g/dL (13.0-17.5); LYMPH # 1.8 x10^3/uL (1.0-4.8); LYMPH % 12 % (24-48); MEAN CORPUSCULAR HEMOGLOBIN 32 pg (25-35); MEAN CORPUSCULAR HGB CONC 35 g/dL (31-37); MEAN CORPUSCULAR VOLUME 93 fL (79-100); MONO # 1.3 x10^3/uL (0.0-1.1); MONO % 8 % (0-9); NEUT # 12.1 x10^3uL (1.8-7.7); NEUT % 79 % (31-73); PLATELET COUNT 278 x10^3/uL (140-400); RED BLOOD COUNT 3.99 x10^6/uL (4.30-5.70); RED CELL DISTRIBUTION WIDTH 13.9 % (11.5-14.5); WHITE BLOOD COUNT 15.4 x10^3/uL (4.0-11.0)
[2018-10-31 14:01] LABS: ALBUMIN 3.7 g/dL (3.4-5.0); CALCIUM 9.5 mg/dL (8.5-10.1); CREATININE 1.2 mg/dL (0.7-1.3); GFR 60.6; POTASSIUM 3.7 mmol/L (3.5-5.1); TOTAL BILIRUBIN 0.7 mg/dL (0.2-1.0); TOTAL PROTEIN 7.3 g/dL (6.4-8.2)
[2018-10-31 14:20] LABS: % BANDS 2 % (0-9); % BASOS 1 % (0-3); % EOS 1 % (0-5); % LYMPHS 14 % (24-48); % MONOS 1 % (0-10); % SEGS 81 % (35-66)
[2018-10-31 14:21] LABS: PLT ESTIMATE ADEQUATE (ADEQUATE)
[2018-10-31 14:22] LABS: POLYCHROMASIA SLIGHT; TOXIC GRANULATION PRESENT
[2018-10-31] MEDS ORDERED: METO10TA81 PO (14:43)
[2018-10-31 15:04] LABS: BARBITURATES NEG (NEG); BENZODIAZEPINES NEG (NEG); CANNABINOIDS NEG (NEG); COCAINE NEG (NEG); METHADONE NEG (NEG); OPIATES NEG (NEG); PHENCYCLIDINE NEG (NEG)
[2018-10-31 15:05] VITALS: BP 146/83
[2018-10-31 15:05] LABS: AMPHETAMINE/METHAMPHETAMINE NEG (NEG)
[2018-10-31 15:12] LABS: BACTERIA,URINE 0 /HPF (0-FEW); BILIRUBIN,URINE NEG (NEG); CLARITY,URINE HAZY; COLOR,URINE AMBER; GLUCOSE,URINE NEG (NEG); NITRITE,URINE NEG (NEG); RBC,URINE 0 /HPF (0-2); SQUAMOUS EPITHELIAL CELL,UR OCC /LPF; UROBILINOGEN,URINE 0.2 mg/dL (0.2 mg/dL); WBC,URINE OCC /HPF (0-4)
== END 2018-10-31 15:07 | disposition home or self-care (01) ==
LOC: ER 12:56
DX: R11.2 Nausea with vomiting, unspecified (principal); R19.7 Diarrhea, unspecified; E11.9 Type 2 diabetes mellitus without complications; I25.2 Old myocardial infarction; I10 Essential (primary) hypertension; Z90.49 Acquired absence of other specified parts of digestive tract
CPT/HCPCS: 36415; 80053; 80307; 81001; 83690; 85007; 85025; 96360; 96372; 99284; J2765; J7030

== ENCOUNTER → 2018-11-01 | Outpatient (CLI) | payer BC ==
[2018-10-31 15:05] VITALS: BP 146/83
[~2018-11-01] MED LIST changes: +CARB1TAB2 PO; +CARV3.123 PO; +IOHEXOL 240 MG/ML 50ML VIAL. ONE; +IOHEXOL 240 MG/ML 50ML VIAL. PO ONE; +IOHEXOL 300 MG/ML 75 ML VIAL. IV ONE; +LACT1CAP8 PO; +LIPA1CAP6 PO; +SEMA0.25 SQ
--- NOTE | 2018-11-01 14:35 | RAD ---
CT abdomen pelvis with contrast dated 11/01/2018. Comparison made 01/28/2018. CLINICAL INDICATION: Abdominal pain. History of diverticulitis. TECHNIQUE: Contiguous axial imaging of the abdomen and pelvis performed after the intravenous administration of 75 cc Omnipaque 300. One or more of the following individualized dose reduction techniques were utilized for this examination: 1. Automated exposure control 2. Adjustment of the mA and/or kV according to patient size 3. Use of iterative reconstruction technique. FINDINGS: Limited images of lung bases show a nodular area of consolidation in the lingula on images 6 and 7 that measures up to 3.3 cm in size. This is new from prior study. Previously described nodular density in the left lower lobe posteriorly on image 1 is unchanged. Heart size within normal limits. No pleural or pericardial effusion. Liver, spleen, pancreas, adrenal glands unremarkable. Calcifications of the pancreatic head/neck, stable. No peripancreatic inflammatory stranding. Gallbladder is surgically absent. Small fluid collection of the gallbladder fossa has decreased in size from prior study. Kidneys are symmetric in size and enhancement. Well-circumscribed 6.9 cm low-density exophytic focus at the posterior midpole right kidney consistent with cyst, unchanged. There are additional low-density foci at the mid to lower pole of the left and right kidneys that are also stable and likely represent cysts. No hydronephrosis. Partially opacified GI tract normal in caliber and contour. Extensive diverticula within the distal colon, unchanged. No paracolonic inflammatory changes are noted. The appendix is normal in caliber. No ascites or lymphadenopathy. Mild ectasia of the infrarenal abdominal aorta measuring 3 cm transverse, unchanged. Small umbilical ventral hernia containing only fat. Urinary bladder is nondistended. There is diffuse bladder wall thickening. Prostate gland normal in size. No free fluid or lymphadenopathy. Bone windows show no acute findings. Multilevel spondylosis. IMPRESSION: 1. Extensive diverticulosis with no evidence of acute diverticulitis. 2. Nodular area of consolidation in the lingula is new from prior study and could be related to pneumonia. A underlying mass cannot be excluded. Suggest follow-up imaging after treatment to ensure resolution. 3. Indeterminate low-density lesions of the bilateral kidney, stable from prior study, likely cysts. 4. Mild diffuse wall thickening of the urinary bladder. Consider acute or chronic cystitis. There is a small bladder diverticulum on the left. 5. Status post cholecystectomy. There is been interval decrease in size of small fluid collection at the gallbladder fossa. 5. Calcific changes of the pancreatic head and neck, stable. This could be related to chronic pancreatitis. Electronically signed by: Rome Cheung MD (11/01/2018 2:32 PM) [id number]
== END | disposition home or self-care (01) ==
LOC: CT 12:51
PROVIDERS: ATTEND Physician Assistant
DX: K57.30 Diverticulosis of large intestine without perforation or abscess without bleeding (principal); K86.89 Other specified diseases of pancreas; K43.9 Ventral hernia without obstruction or gangrene; I77.811 Abdominal aortic ectasia; N28.89 Other specified disorders of kidney and ureter; N32.3 Diverticulum of bladder; Z90.49 Acquired absence of other specified parts of digestive tract
CPT/HCPCS: 74177; Q9966; Q9967

== ENCOUNTER → 2018-11-16 | Outpatient (CLI) | payer BC, MEDICARE ==
[2018-10-31 15:05] VITALS: BP 146/83
[~2018-11-16] MED LIST changes: -IOHEXOL 240 MG/ML 50ML VIAL. ONE; -IOHEXOL 240 MG/ML 50ML VIAL. PO ONE
--- NOTE | 2018-11-16 09:53 | RAD ---
CT CHEST W/CONTRAST Indication: Pulmonary nodule, persistent cough Technique: Postcontrast CT imaging was performed of the chest, multiplanar reconstruction images submitted. One or more of the following individualized dose reduction techniques were utilized for this examination: 1. Automated exposure control 2. Adjustment of the mA and/or kV according to patient size 3. Use of iterative reconstruction technique. Comparison: There is no previous dedicated chest CT available. Correlation is made with November 01, 2018 CT abdomen pelvis exam and also CT abdomen pelvis exam January 28, 2018 Findings: There is again some branching nodularity of the left lower lobe such as seen images 47 through 52 series 4 which was present previously, appears slightly greater than January 2018 exam. Previously seen annular density of more recent exam has decreased although some residual density present. There is mild thickening along the inferior aspect of left major fissure, also nodular appearance more inferiorly as seen previously such as image 66 series 4 measuring about 2.2 cm transverse by 1.4 cm AP. There is asymmetric soft tissue density posterior to the left nipple about 4.1 cm transverse by 4.6 cm AP. There is dilatation of the ascending thoracic aorta about 4.2 cm, no intraluminal flap. There is some calcified and noncalcified plaque of the proximal great vessels. Maximal caliber descending thoracic aorta is about 3.1 cm, scattered plaque present. There are coronary stents, also some calcification. There is slightly enlarged precarinal node about 1.1 cm short axis dimension, some other nonenlarged mediastinal nodes. There is no pericardial or pleural fluid or pneumothorax. There is linear density in the left mainstem bronchus, also some density adherent to the tracheal crandall greater posteriorly, as seen on image 19 about 0.7 cm transverse. There are findings of the abdomen as described in detail for recent CT abdomen pelvis exam. IMPRESSION: 1. Previously seen lingular density has decreased although some persistent density present including nodular appearing density more inferiorly along the major fissure for which short-term follow-up advised in 3 months. There is also again branching nodularity of the left lower lobe, questionably somewhat increased compared with January 2018 exam. There is slightly enlarged precarinal node. 2. There is asymmetric soft tissue density posterior to the left nipple. While this could be due to asymmetric gynecomastia, mass is not excluded for which mammography and ultrasound recommended. 3. There is mild dilatation of the ascending thoracic aorta about 4.2 cm. 4. There is some density in the trachea and left mainstem bronchus, mucous considered more likely than mass. Electronically signed by: Jake Perera MD (11/16/2018 9:50 AM) [facility]
== END | disposition home or self-care (01) ==
LOC: CT 07:54
PROVIDERS: ATTEND Physician Assistant
DX: I77.810 Thoracic aortic ectasia (principal); R91.1 Solitary pulmonary nodule; I70.0 Atherosclerosis of aorta; I25.10 Atherosclerotic heart disease of native coronary artery without angina pectoris; Z95.5 Presence of coronary angioplasty implant and graft
CPT/HCPCS: 71260; Q9967

== ENCOUNTER 2018-11-23 11:19 | Observation (INO) | payer BC, MEDICARE ==
[~2018-11-23] VITALS: Ht 165.1 cm; Wt 101.2 kg
[~2018-11-23 11:19] MED LIST changes: -CARB1TAB2 PO; -CARV3.123 PO; -IOHEXOL 300 MG/ML 75 ML VIAL. IV ONE; -LACT1CAP8 PO; -LIPA1CAP6 PO; -SEMA0.25 SQ
[2018-11-23 11:38] VITALS: BP 146/80
[2018-11-23] MEDS ORDERED: IV NORMAL SALINE 500ML 500 ML IV ONE (12:00)
[2018-11-23] MEDS: IPRATRPIUM/ALBUTEROL 0.5/2.5MG 3 ML NEBU. NEB SCH ×3 (12:00→19:49)
[2018-11-23] MEDS: IV NORMAL SALINE 1,000ML 1,000 ML IV SCH ×3 (12:08→21:41)
[2018-11-23] MEDS ORDERED: SEMA0.25 SQ (12:23)
[2018-11-23] MEDS ORDERED: MECL25TA3 PO (12:23)
[2018-11-23] MEDS ORDERED: LACT1CAP8 PO (12:23)
[2018-11-23] MEDS ORDERED: CARV3.123 PO (12:23)
[2018-11-23] MEDS ORDERED: LIPA1CAP6 PO (12:23)
[2018-11-23] MEDS ORDERED: CARB1TAB2 PO (12:23)
[2018-11-23 12:29] LABS: BASO % 0 % (0-3); EOS # 0.1 x10^3/uL (0.0-0.7); EOS % 1 % (0-3); HEMOGLOBIN 13.5 g/dL (13.0-17.5); LYMPH # 1.5 x10^3/uL (1.0-4.8); LYMPH % 15 % (24-48); MEAN CORPUSCULAR HEMOGLOBIN 33 pg (25-35); MEAN CORPUSCULAR HGB CONC 35 g/dL (31-37); MEAN CORPUSCULAR VOLUME 94 fL (79-100); MONO # 0.6 x10^3/uL (0.0-1.1); MONO % 7 % (0-9); NEUT # 7.6 x10^3uL (1.8-7.7); NEUT % 77 % (31-73); PLATELET COUNT 363 x10^3/uL (140-400); RED BLOOD COUNT 4.15 x10^6/uL (4.30-5.70); RED CELL DISTRIBUTION WIDTH 13.9 % (11.5-14.5); WHITE BLOOD COUNT 9.9 x10^3/uL (4.0-11.0)
[2018-11-23 12:41] LABS: ALBUMIN 3.7 g/dL (3.4-5.0); CALCIUM 9.8 mg/dL (8.5-10.1); TOTAL PROTEIN 7.3 g/dL (6.4-8.2)
[2018-11-23 12:42] LABS: CREATININE 1.2 mg/dL (0.7-1.3); GFR 60.6; POTASSIUM 4.6 mmol/L (3.5-5.1); TOTAL BILIRUBIN 0.4 mg/dL (0.2-1.0)
--- NOTE | 2018-11-23 13:29 | RAD ---
CT HEAD INDICATION: New onset tremor, vertigo COMPARISON: None Available. Exposure: One or more of the following individualized dose reduction techniques were utilized for this examination: 1. Automated exposure control 2. Adjustment of the mA and/or kV according to patient size 3. Use of iterative reconstruction technique TECHNIQUE: 5 mm contiguous axial images were obtained from the skull base to the vertex in both bone and soft tissue algorithm. FINDINGS: No abnormal attenuation within the brain parenchyma. No evidence of acute intracranial hemorrhage. No extra-axial fluid collections. No mass effect or midline shift. Ventricular size is appropriate. Basal cisterns are patent. No fractures identified.Rosario-white differentiation is preserved.Globes and orbits are within normal limits. Paranasal sinuses and mastoid air cells are clear. IMPRESSION: No acute intracranial findings. Electronically signed by: Anibal Desai MD (11/23/2018 1:26 PM) [place] [id number]
[2018-11-23 15:00] VITALS: BP 138/79
[2018-11-23] MEDS ORDERED: VANCOMYCIN PER PHARMACY MC PRN (15:30)
[2018-11-23] MEDS ORDERED: PIP/TAZO PER PHARMACY MC PRN (15:30)
[2018-11-23 15:36] LABS: BILIRUBIN,URINE NEG (NEG); CLARITY,URINE HAZY; COLOR,URINE AMBER; GLUCOSE,URINE NEG (NEG)
[2018-11-23 15:37] LABS: BACTERIA,URINE FEW /HPF (0-FEW); NITRITE,URINE NEG (NEG); RBC,URINE 0 /HPF (0-2); SQUAMOUS EPITHELIAL CELL,UR OCC /LPF; UROBILINOGEN,URINE 0.2 mg/dL (0.2 mg/dL); WBC,URINE OCC /HPF (0-4)
[2018-11-23] MEDS ORDERED: VANCOMYCIN 2 GM in IV NORMAL SALINE 500ML 500 ML IV ONE (16:00)
[2018-11-23] MEDS ORDERED: IOHEXOL 300 MG/ML 75 ML VIAL. IV ONE (16:15)
--- NOTE | 2018-11-23 16:53 | RAD ---
EXAM: 1. Chest 2 views. 2. Abdomen 2 views. HISTORY: Shortness of breath, abdominal pain. COMPARISON: 09/24/2018. FINDINGS: There are no confluent infiltrates. Linear opacities in the left base most likely indicate atelectasis or scarring. There is no pneumothorax or pleural effusion. The heart is not enlarged. There is no pneumoperitoneum. There are no distended small bowel loops or significant air fluid levels. There is gas distally. Stool throughout the colon is consistent with constipation. Cholecystectomy clips are noted. IMPRESSION: 1. Left basilar atelectasis. No confluent infiltrates. 2. No evidence of obstruction. Correlate for constipation. Electronically signed by: Nathan Akers MD (11/23/2018 4:50 PM) [facility]
--- NOTE | 2018-11-23 17:24 | RAD ---
EXAM: CT ABDOMEN/PELVIS WITH CONTRAST. HISTORY: Abdominal pain and sepsis. TECHNIQUE: Computed tomography of the abdomen and pelvis was performed after the intravenous administration of 75 mL Omnipaque 300. COMPARISON: 11/01/2018. FINDINGS: Lung windows through the visualized portions of the bases reveal interval improvement in a mild infiltrate in the lingula. Branching nodules at the superior margin of the [id number] in the left lower lobe most likely reflect a chronic atypical infectious process. A pneumatocele in the left lower lobe is likely postinflammatory and measures 1.7 cm. Coronary atherosclerotic calcifications are noted. Bone windows reveal no suspicious lesions. The gallbladder is surgically absent. A well-circumscribed circumscribed region of hypoattenuation in the gallbladder fossa measures 2.9 x 1.6 cm and is unchanged. This may represent an old hematoma or seroma in the cholecystectomy bed. It has decreased in size over time. A right renal cyst posteriorly measures 6.8 cm. A partially calcified nodule at the right renal lower pole measures 1.1 cm and is not clearly changed since 10/27/2017. The largest cyst at the left renal lower pole measures 3.5 cm. Calcifications in the pancreatic head indicate chronic pancreatitis. The pancreatic duct is not dilated. No pancreatic parenchymal mass is identified. There is no biliary dilatation. Spleen and adrenal glands are unremarkable. There is a small infrarenal abdominal aortic aneurysm with maximum diameter 3.0 cm. Sigmoid diverticulosis is moderate to severe. There is no superimposed inflammation. The appendix is not inflamed. There is no small bowel obstruction. A bladder diverticulum on the left measures 1.2 cm. IMPRESSION: 1. No cause for infection is identified. 2. A previously noted lingular infiltrate has mostly resolved. There are changes of or chronic atypical infectious process in the left lower lobe. 3. Resolving old hematoma or seroma in the cholecystectomy bed. 4. Changes of chronic pancreatitis. 5. Small infrarenal abdominal aortic aneurysm at 3.0 cm. *One or more of the following individualized dose reduction techniques were utilized for this examination: 1. Automated exposure control. 2. Adjustment of the mA and/or kV according to patient size. 3. Use of iterative reconstruction technique. Electronically signed by: Nathan Akers MD (11/23/2018 5:21 PM) [facility]
[2018-11-23 19:35] VITALS: BP 119/71
[2018-11-23] MEDS: LACTOBACILLUS RHAMNOSUS GG 1 CAPSULE. PO SCH (20:51)
[2018-11-23] MEDS: PIPERACILLIN/TAZOBACTAM 4.5 GM in IV NORMAL SALINE 50ML 50 ML IV SCH (20:52)
[2018-11-23 23:38] VITALS: BP 114/73
[2018-11-24] MEDS: IV NORMAL SALINE 1,000ML 1,000 ML IV SCH ×2 (01:02→08:16)
[2018-11-24] MEDS: IPRATRPIUM/ALBUTEROL 0.5/2.5MG 3 ML NEBU. NEB SCH ×2 (04:47→09:32)
[2018-11-24] MEDS ORDERED: VANCOMYCIN 1.5 GM in IV NORMAL SALINE 500ML 500 ML IV SCH (05:00)
[2018-11-24] MEDS: PIPERACILLIN/TAZOBACTAM 4.5 GM in IV NORMAL SALINE 50ML 50 ML IV SCH (05:03)
[2018-11-24 05:05] VITALS: BP 137/79
[2018-11-24 06:21] LABS: BASO % 0 % (0-3); EOS # 0.2 x10^3/uL (0.0-0.7); EOS % 3 % (0-3); HEMATOCRIT 31.6 % (39.0-53.0); HEMOGLOBIN 10.8 g/dL (13.0-17.5); LYMPH # 1.5 x10^3/uL (1.0-4.8); LYMPH % 24 % (24-48); MEAN CORPUSCULAR HEMOGLOBIN 32 pg (25-35); MEAN CORPUSCULAR HGB CONC 34 g/dL (31-37); MEAN CORPUSCULAR VOLUME 93 fL (79-100); MONO # 0.5 x10^3/uL (0.0-1.1); MONO % 9 % (0-9); NEUT # 3.9 x10^3uL (1.8-7.7); NEUT % 64 % (31-73); PLATELET COUNT 253 x10^3/uL (140-400); RED BLOOD COUNT 3.38 x10^6/uL (4.30-5.70); RED CELL DISTRIBUTION WIDTH 13.6 % (11.5-14.5); WHITE BLOOD COUNT 6.1 x10^3/uL (4.0-11.0)
[2018-11-24 06:26] LABS: CALCIUM 8.5 mg/dL (8.5-10.1); CREATININE 1.1 mg/dL (0.7-1.3); POTASSIUM 3.8 mmol/L (3.5-5.1)
[2018-11-24] MEDS: LACTOBACILLUS RHAMNOSUS GG 1 CAPSULE. PO SCH (08:16)
[2018-11-24] MEDS ORDERED: HEPARIN for SUB-Q USE 5,000 UNIT/ML VIAL. SQ SCH (14:00)
--- NOTE | 2018-11-25 01:22 | CONS ---
DATE OF CONSULTATION: 11/24/2018 NEUROLOGICAL CONSULT REFERRING PHYSICIAN: Drake Villa MD REASON FOR CONSULTATION: Rule out stroke. HISTORY OF PRESENT ILLNESS: This is a 68-year-old right-handed male, who was admitted yesterday for possible abdominal infectious process. Neuro consult was requested because the patient was found to have intermittent twitching and slurred speech while he was visiting his primary care physicians. The twitching and slurred speech lasted a few seconds. According to his , the patient has had intermittent twitching of the entire body frequently and more prominent during sleep. He has had history of seizure when he was very young, but he has not had any recurrence of seizure-like activities in the last few years. The patient denies any headaches, visual disturbances, chest pain, shortness of breath or palpitation, dysarthria or dysphagia. He has had chronic nausea and sometimes vomiting with abdominal pain probably due to underlying frequent abdominal infections and possible colitis. PAST MEDICAL HISTORY: Consistent with coronary artery disease 2 years ago required stent placement, frequent abdominal infectious process, probably due to diverticulitis versus colitis, bilateral hearing loss more complete on the right side, hyperlipidemia, diverticulosis, pancreatitis, obesity, urinary tract infections, diabetes. PAST SURGICAL HISTORY: Significant for status post cholecystectomy, left knee surgery, cardiac catheterization and stent placements. SOCIAL HISTORY: The patient lives with his at home. He denies smoking, alcohol or illicit drug use. CURRENT MEDICATIONS: Vancomycin intravenously, Zosyn intravenously, albuterol nebulizer. ALLERGIES: No known drug allergies. FAMILY HISTORY: Noncontributory. REVIEW OF SYSTEM: A 10-point review of system was performed as mentioned above in the history of present illness, otherwise unremarkable. PHYSICAL EXAMINATION: 1. GENERAL: Well-developed, well-nourished, obese male, in no acute distress. He weighs 101.2 kilos. 2. VITAL SIGNS: Blood pressure 137/79, respiratory rate 16, pulse is 78 and regular, temperature 97.6, oxygen saturation 94% on room air. 3. HEENT: Normocephalic, atraumatic, otherwise, unremarkable. 4. NECK: Supple. Negative for carotid bruit, lymphadenopathy or thyromegaly. 5. LUNGS: Clear to A and P. 6. CARDIOVASCULAR: Regular rate and rhythm. Normal S1, S2. 7. ABDOMEN: Soft, bowel sounds positive. 8. EXTREMITIES: Negative for cyanosis, clubbing or pitting edema. NEUROLOGIC: MENTAL STATUS: The patient is alert and oriented x 3. Speech is fluent. There is no language dysfunction. Memory, judgment and abstract thinking are normal. The patient denies hallucination with delusion. Hearing is completely lost in the right side and diminished on the left side. The palate is elevated symmetrically. Sternocleidomastoid muscle are powerful bilaterally. The patient shrugs his shoulder symmetrically, protrudes his tongue in the midline without fasciculation or atrophy. MOTOR EXAMINATION: No focal muscle bulk was seen. The tone is normal. The strength is 5/5 throughout. Tinel's and Phalen's signs were present over the median nerve at the wrist bilaterally. Sensory examination revealed normal pinprick, light touch and vibratory and position senses. Deep tendon reflexes were asymmetric and hypoactive with absent Achilles responses. Gait, the stance is steady. Romberg's sign is negative. The patient has normal [id number] and [id number], rapid alternating movements and rapid repetitive movements. DIAGNOSTIC DATA: Initial nonenhanced head CT scan revealed no evidence of acute intracranial process. The abdominal CT scan revealed no acute infections identified, possible chronic atypical infectious process in the left lower lobe, chronic pancreatitis and small aortic abdominal aneurysm at 3 cm. LABORATORY DATA: CBC revealed white blood cells of 6100, hemoglobin 10.8, hematocrit 31.6, platelet count 253,000. Chemistry reveals sodium of 142, potassium 3.8, chloride 107, CO2 of 28, BUN 14, creatinine 1.1, glucose 91, calcium 8.5. Troponin level is normal. Urinalysis is negative for urinary tract infections. IMPRESSION: 1. 1. Intermittent twitching of the entire body with history of seizure without current neurological deficits with normal head CT scan. 2. 2. Multiple medical problems include recurrent abdominal infectious process. 3. 3. Multiple medical problems include history of diabetes mellitus, hyperlipidemia, chronic pancreatitis, diverticulitis, bilateral hearing loss with complete hearing loss on the right side, obesity. 4. 4. Positive Tinel's and Phalen's signs bilaterally, rule out entrapment neuropathy - carpal tunnel syndrome. 1. RECOMMENDATIONS: 2. 1. We will continue with current management initiated by Dr. Villa. 3. 2. We will arrange for EEG on an outpatient basis. 3. We will arrange for EMG/NCS of the upper extremities to rule out entrapment neuropathy. M Peggy DEL RIO MD DR: [email or web address]/vidya JOB#: [id number] / [id number]
== END 2018-11-24 12:55 | disposition home or self-care (01) ==
LOC: 1 SOUTH 11:19 → INTOOBSV 11:19
PROVIDERS: ADMIT Family Medicine; ATTEND Family Medicine
DX: E86.0 Dehydration (principal); I10 Essential (primary) hypertension; E78.00 Pure hypercholesterolemia, unspecified; E11.9 Type 2 diabetes mellitus without complications; R53.1 Weakness; R11.10 Vomiting, unspecified; D72.89 Other specified disorders of white blood cells; D64.89 Other specified anemias; H81.43 Vertigo of central origin, bilateral; N33 Bladder disorders in diseases classified elsewhere; K85.81 Other acute pancreatitis with uninfected necrosis; I25.10 Atherosclerotic heart disease of native coronary artery without angina pectoris; E66.9 Obesity, unspecified; N39.0 Urinary tract infection, site not specified; K86.1 Other chronic pancreatitis; H91.93 Unspecified hearing loss, bilateral; E78.5 Hyperlipidemia, unspecified; K57.92 Diverticulitis of intestine, part unspecified, without perforation or abscess without bleeding; Z87.891 Personal history of nicotine dependence; Z90.49 Acquired absence of other specified parts of digestive tract; Z98.890 Other specified postprocedural states
CPT/HCPCS: 36415; 70450; 71046; 74021; 74177; 80048; 80053; 81001; 82150; 82550; 82947; 83605; 83690; 84145; 84443; 84484; 85025; 85379; 87086; 94640; 96361; 96365; 96366; 96367; G0378; G0379; J2543; J3370; J7040; J7620; Q9967; J7030

== ENCOUNTER → 2018-12-21 | Outpatient (CLI) | payer BC, MEDICARE ==
[2018-11-24 05:05] VITALS: BP 137/79
[~2018-12-21] MED LIST changes: +CARB1TAB2 PO; +CARV3.123 PO; +LACT1CAP8 PO; +LIPA1CAP6 PO; +SEMA0.25 SQ
== END | disposition home or self-care (01) ==
LOC: LAB 11:52
PROVIDERS: ATTEND Urology
DX: N40.1 Benign prostatic hyperplasia with lower urinary tract symptoms (principal)
CPT/HCPCS: 84153; G0103

== ENCOUNTER → 2019-04-18 | Outpatient (CLI) | payer BC, MEDICARE | END | disposition home or self-care (01) | LOC: LAB 11:43 | PROVIDERS: ATTEND Internal Medicine Gastroenterology | DX: R19.7 Diarrhea, unspecified (principal) | CPT/HCPCS: 36415 ==

== ENCOUNTER 2019-11-21 17:23 | Emergency (ER) | payer BC, MEDICARE ==
[~2019-11-21] VITALS: Ht 165.1 cm; Wt 101.2 kg
[~2019-11-21 17:23] MED LIST changes: +MECL-75 PO; -MECL25TA3 PO
[2019-11-21] MEDS ORDERED: ONDANSETRON PF 4 MG/2 ML VIAL. ONE (17:36)
[2019-11-21] MEDS ORDERED: ONDANSETRON PF 4 MG/2 ML VIAL. IV ONE (17:45)
[2019-11-21] MEDS ORDERED: IV NORMAL SALINE 1,000ML 1,000 ML IV ONE (17:45)
[2019-11-21 17:55] LABS: BASO % 1 % (0-3); EOS # 0.5 x10^3/uL (0.0-0.7); EOS % 6 % (0-3); HEMATOCRIT 39.7 % (39.0-53.0); HEMOGLOBIN 13.8 g/dL (13.0-17.5); LYMPH # 1.7 x10^3/uL (1.0-4.8); LYMPH % 19 % (24-48); MEAN CORPUSCULAR HEMOGLOBIN 34 pg (25-35); MEAN CORPUSCULAR HGB CONC 35 g/dL (31-37); MEAN CORPUSCULAR VOLUME 98 fL (79-100); MONO # 0.8 x10^3/uL (0.0-1.1); MONO % 9 % (0-9); NEUT # 6.2 x10^3uL (1.8-7.7); NEUT % 66 % (31-73); PLATELET COUNT 291 x10^3/uL (140-400); RED BLOOD COUNT 4.07 x10^6/uL (4.30-5.70); RED CELL DISTRIBUTION WIDTH 13.4 % (11.5-14.5); WHITE BLOOD COUNT 9.3 x10^3/uL (4.0-11.0)
--- NOTE | 2019-11-21 17:57 | PHYS DOC ---
Past History Past Medical History: Diverticulitis, Diabetes, GI Bleed, Hypertension, PR, Pancreatitis (ARIELLE POTTER DO) Past Surgical History: Cholecystectomy (ARIELLE POTTER DO) Alcohol Use: None Drug Use: None (ARIELLE POTTER DO) General Adult EDM: Chief Complaint: NAUSEA/VOMITING/DIARRHEA HPI: HPI: Patient is a 69-year-old male with multiple medical problems including coronary disease with stents who presents secondary to spontaneous nausea vomiting and diaphoresis. He denies any chest or abdominal pain. He denies any melena or hematemesis. He has not had any fever chills or sweats. He denies any upper respiratory type symptoms. He was unable to hold down his Zofran at home. According to the he has had episodes like this in the past. This is been ongoing for a couple of hours now. [] (ARIELLE POTTER DO) Review of Systems: Review of Systems: Constitutional: Denies fever or chills Eyes: Denies change in visual acuity HENT: Reports being very hard of hearing Respiratory: Denies cough or shortness of breath Cardiovascular: Denies chest pain or edema GI: Per HPI : Denies dysuria Musculoskeletal: Denies back pain or joint pain Integument: Denies rash Neurologic: Denies headache, focal weakness or sensory changes Endocrine: Denies polyuria or polydipsia Lymphatic: Denies swollen glands Psychiatric: Denies depression or anxiety (ARIELLE POTTER DO) Heart Score: Risk Factors: Risk Factors: DM, Current or recent (<one month) smoker, HTN, HLP, family history of CAD, obesity. Risk Scores: Score 0 - 3: 2.5% MACE over next 6 weeks - Discharge Home Score 4 - 6: 20.3% MACE over next 6 weeks - Admit for Clinical Observation Score 7 - 10: 72.7% MACE over next 6 weeks - Early Invasive Strategies (ARIELLE POTTER DO) Current Medications: Current Meds: Current Medications Medications (Trade) Dose Ordered Sig/Jelani Start Time Stop Time Status Last Admin Dose Admin Fentanyl Citrate (Fentanyl 2ml Vial) 50 mcg 1X ONCE 11/21/19 17:45 11/21/19 17:53 DC Ondansetron HCl (Zofran) 4 mg 1X ONCE 11/21/19 17:45 11/21/19 17:53 DC 11/21/19 17:39 4 MG Sodium Chloride 1,000 ml @ 1,000 mls/hr 1X ONCE 11/21/19 17:45 11/21/19 18:44 11/21/19 17:45 1,000 MLS/HR (ARIELLE POTTER DO) Allergies: Allergies: Allergies Coded Allergies Type Severity Reaction Last Updated Verified No Known Drug Allergies 11/01/18 No (ARIELLE POTTER DO) Physical Exam: PE: Constitutional: Well developed, well nourished, no acute distress, non-toxic appearance, very hard of hearing. [] HENT: Normocephalic, atraumatic, bilateral external ears normal, oropharynx moist, no oral exudates, nose normal. [] Eyes: PERRLA, EOMI, conjunctiva normal, no discharge. [] Neck: Normal range of motion, no tenderness, supple, no stridor. [] Cardiovascular:Heart rate regular rhythm, no murmur [] Lungs & Thorax: Bilateral breath sounds clear to auscultation [] Abdomen: Bowel sounds normal, soft, no tenderness, no masses, no pulsatile masses. [] Skin: Warm, dry, no erythema, no rash. [] Back: No tenderness, no CVA tenderness. [] Extremities: No tenderness, no cyanosis, no clubbing, ROM intact, no edema. [] Neurologic: Alert and oriented X 3, normal motor function, normal sensory function, no focal deficits noted. [] Psychologic: Affect normal, judgement normal, mood normal. [] (ARIELLE POTTER DO) Current Patient Data: Vital Signs: Vital Signs Date Time Temp Pulse Resp B/P (MAP) Pulse Ox O2 Delivery O2 Flow Rate FiO2 11/21/19 17:30 98.1 89 18 171/100 (123) 95 Nasal Cannula (ARIELLE POTTER DO) EKG: EKG: [EKG: Normal sinus rhythm rate of [address]-T changes] (ARIELLE POTTER DO) Radiology/Procedures: Radiology/Procedures: [] (ARIELLE POTTER DO) Impressions: CXR shows no acute disease. CT abdomen pelvis does not show any acute disease. (HI HOFFMAN DO) Course & Med Decision Making: Course & Med Decision Making Pertinent Labs and Imaging studies reviewed. (See chart for details) [] (ARIELLE POTTER DO) Course & Med Decision Making Labs are within normal limits. CT abdomen pelvis does not show any acute disease. Patient was able to tolerate p.o. intake in the ER. Family is comfortable to take patient home for outpatient follow-up. Discussed results and plan of care with patient. Patient is instructed to follow up with PCP in one to 2 days. Appropriate discharge instructions given to patient to return to the ED or to seek immediate medical evaluation. Patient is instructed to return to the ED if symptoms worsen or if any concerns. (HI HOFFMAN DO) Dragon Disclaimer: Dragon Disclaimer: This electronic medical record was generated, in whole or in part, using a voice recognition dictation system. (ARIELLE POTTER DO) Departure Departure: Impression: Primary Impression: Nausea & vomiting Disposition: 01 HOME/RESIDENCE PRIOR TO ADM Condition: STABLE Referrals: RAFAEL PARRA MD (PCP) Patient Instructions: Nausea and Vomiting Additional Instructions: Please return to the ED if symptoms worsen or if any concerns. Please follow-up with PCP in 1 to 2 days. ARIELLE POTTER DO Nov 21, 2019 17:57 HI HOFFMAN DO Nov 21, 2019 21:27
[2019-11-21 18:04] LABS: CALCIUM 9.2 mg/dL (8.5-10.1); CREATININE 1.3 mg/dL (0.7-1.3); GFR 55.1; POTASSIUM 3.9 mmol/L (3.5-5.1)
--- NOTE | 2019-11-21 18:07 | EKG ---
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
[2019-11-21 18:10] LABS: ALBUMIN 3.9 g/dL (3.4-5.0); ALBUMIN/GLOBULIN RATIO 1.2 (1.0-1.7); TOTAL BILIRUBIN 0.4 mg/dL (0.2-1.0); TOTAL PROTEIN 7.2 g/dL (6.4-8.2)
[2019-11-21 18:13] VITALS: BP 162/98
--- NOTE | 2019-11-21 18:33 | RAD ---
CHEST AP ONLY Clinical History: Reason: NAUSEA AND DIAPHORESIS HX: Cardiac stents / Spl. Instructions: / History: Technique: AP view of the chest was obtained at 11/21/2019 5:57 PM. Comparison: November 23, 2018. Findings: The cardiomediastinal silhouette is normal. The pulmonary vasculature is normal. The lungs and pleural margins are clear. There is a stent in the proximal right subclavian artery. Impression: No evidence of an acute cardiopulmonary process. Electronically signed by: Flaco Smith III, MD (11/21/2019 6:30 PM) [id number]
[2019-11-21] MEDS ORDERED: IOHEXOL 300 MG/ML 75 ML VIAL. IV ONE (19:00)
--- NOTE | 2019-11-21 19:54 | RAD ---
Exam: CT of abdomen and pelvis with contrast INDICATION: Diverticulitis TECHNIQUE: Sequential axial images through the abdomen and pelvis obtained following the administration of 75 mL of Omni 300 IV contrast. Sagittal and coronal reformatted images were reconstructed from the axial data and reviewed. Comparisons: 11/23/2018 FINDINGS: Heart size is normal. No pericardial effusion. Small cluster of nodules noted in the left lower lobe. No pleural effusion. Liver, spleen, pancreas, and adrenals are unremarkable. Gallbladder surgically absent. Kidneys demonstrate symmetric enhancement. No perinephric inflammation or hydronephrosis. Several hypoattenuating cystic lesions are noted within the kidneys bilaterally likely representing simple cysts. However some of these are too small to characterize. No renal or ureteral calculi are identified. Bladder is distended and appears thin-walled. Prostate is not enlarged. Extensive diverticulosis is noted within the descending and sigmoid colon without evidence of acute diverticulitis. Appendix is normal. No free intra-abdominal air or fluid. No obstruction. Abdominal aorta has a normal course and caliber. Abdominal vasculature is patent. No enlarged abdominal lymph nodes are identified. No suspicious osseous lesions or acute fractures. IMPRESSION: 1. Extensive diverticulosis without evidence of acute diverticulitis. 2. Several incompletely characterized hypoattenuating renal lesions. Further evaluation with nonemergent/outpatient renal protocol CT or MRI is recommended. Exposure: One or more of the following in the visualized dose reduction techniques were utilized for this examination: 1. Automated exposure control 2. Adjustment of the MA and/or KV according to patient size 3. Use of iterative of reconstructive technique Electronically signed by: Sury Bergeron MD (11/21/2019 7:50 PM) [id number]
== END 2019-11-21 22:00 | disposition home or self-care (01) ==
LOC: ER 17:23
DX: R11.2 Nausea with vomiting, unspecified (principal); R61 Generalized hyperhidrosis; E11.9 Type 2 diabetes mellitus without complications; I10 Essential (primary) hypertension; I25.2 Old myocardial infarction; Z90.49 Acquired absence of other specified parts of digestive tract
CPT/HCPCS: 36415; 71045; 74177; 80053; 83690; 84484; 85025; 93005; 96361; 96374; 99285; J2405; Q9967; J7030

== ENCOUNTER → 2021-01-01 | Outpatient (CLI) | payer OTHER, MEDICAID ==
[~2021-01-01] MED LIST changes: +CARB-186 PO; -CARB1TAB2 PO; -LISI-338 PO; +LISI-517 PO
[2021-01-01 09:44] LABS: ALBUMIN 3.7 g/dL (3.4-5.0); ALBUMIN/GLOBULIN RATIO 1.2 (1.0-1.7); CREATININE 1.3 mg/dL (0.7-1.3); GFR 54.9; POTASSIUM 4.2 mmol/L (3.5-5.1); TOTAL BILIRUBIN 0.6 mg/dL (0.2-1.0); TOTAL PROTEIN 6.9 g/dL (6.4-8.2)
[2021-01-01 23:07] LABS: MICROALB RD UR 10.7 ug/mL (Not Estab.)
== END ==
LOC: LAB 08:08
DX: E11.65 Type 2 diabetes mellitus with hyperglycemia (principal)
CPT/HCPCS: 36415; 80053; 80061; 82043; 82570